=== PATIENT | male | born 1935 | race Caucasian/White ===

== ENCOUNTER 2017-06-22 11:16 | Inpatient (IN) | payer OTHER, MEDICARE ==
[~2017-06-22] VITALS: Ht 165.1 cm; Wt 44.1 kg
[~2017-06-22 11:16] MED LIST: ASPIRIN EC81 M1 PO; CEFTRIAXONE2 G2 IV; CLARITIN10 M1 PO; COZAAR50 M1 PO; DIVALPROEX SOD250 M2 PO; FLAX OIL1000 M1 PO; LEXAPRO20 M1 PO; METOPROLOL TART25 M1 PO; SLOW FE142 MG PO; ZOCOR20 M1 PO
--- NOTE | 2017-06-22 12:33 | ED DYSPNEA/ASTHMA COMPLAINT ---
History of Present Illness General Chief Complaint: Dyspnea (COPD, CHF, Other) Stated Complaint: BIBA WITH SOB Source: patient, old records Exam Limitations: no limitations Vital Signs & Intake/Output Vital Signs & Intake/Output Vital Signs Date Time Temp Pulse Resp B/P B/P Pulse O2 O2 Flow FiO2 Mean Ox Delivery Rate 06/22 1226 97 Room Air Room Air 06/22 1127 97.1 81 24 140/87 100 Nasal 2.5L Cannula Allergies Coded Allergies: No Known Allergies (12/23/16) Reconcile Medications Aspirin (Ecotrin*) 325 MG TABLET.DR 1 TAB PO DAILY HEART (Reported) Atorvastatin Calcium 40 MG TABLET 1 TAB PO 1700 CHOLESTEROL (Reported) Divalproex Sodium 250 MG TABLET.DR 1 TAB PO DAILY MENTAL HEALTH (Reported) Escitalopram Oxalate (Lexapro) 20 MG TABLET 1 TAB PO DAILY MENTAL HEALTH ( Reported) Lisinopril 5 MG TABLET 1 TAB PO DAILY HEART (Reported) Losartan Potassium (Cozaar) 50 MG TABLET 1 TAB PO DAILY BP (Reported) Metoprolol Tartrate 25 MG TABLET 0.5 TAB PO BID HEART/BP (Reported) Simvastatin (Zocor*) 20 MG TABLET 1 TAB PO QPM CHOLESTEROL (Reported) Triage Note: BIBA FROM HOME, WITH MULITPLE COMPLAINTS "SOMETIMES MY STOMACH HURTS, BUT IT IS OK RIGHT NOW, SOMETIMES I GET VERY SHORT OF BREATH, GET SO TIRED I JUST SLEEP, I DON'T TAKE MY MEDS, AND AT NIGHT I GET VERY VIVID HALLUCINATIONS OF THINGS SO REALISTIC". PT IS AWAKE, ALERT, ORIENTED UPON ARRIVAL. Triage Nurses Notes Reviewed? yes Onset: Abrupt Duration: day(s):, constant Timing: recent history Severity: moderate, severe Activities at Onset: none HPI: 81-year-old male comes into the emergency room for further evaluation of shortness of breath. Patient reports that for the past 2 weeks she's been feeling increasingly short of breath. Denies any chest pain. Denies any fever. Associated cough. He reports that he had a recent valve replacement [place] a couple months ago denies any abdominal pain. He is short of breath all the time. (Suman Gaming) Past History Travel History Traveled to [place] past 21 day No Medical History Any Pertinent Medical History? 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 No (Suman Gaming) Review of Systems Review of Systems Constitutional: Reports: no symptoms. EENTM: Reports: no symptoms. Respiratory: Reports: see HPI. Cardiovascular: Reports: see HPI. GI: Reports: no symptoms. Genitourinary: Reports: no symptoms. Musculoskeletal: Reports: no symptoms. Skin: Reports: no symptoms. Neurological/Psychological: Reports: no symptoms. Hematologic/Endocrine: Reports: no symptoms. Immunologic/Allergic: Reports: no symptoms. All Other Systems: Reviewed and Negative (Suman Gaming) Physical Exam Physical Exam General Appearance: well developed/nourished, alert, awake Head: atraumatic Eyes: Bilateral: normal appearance. Ears, Nose, Throat: normal ENT inspection, hearing grossly normal Neck: normal inspection Respiratory: no respiratory distress, decreased breath sounds Cardiovascular: regular rate/rhythm Gastrointestinal: soft Extremities: normal inspection Neurologic/Psych: awake, alert, oriented x 3, normal gait Skin: intact, normal color Core Measures ACS in differential dx? Yes CVA/TIA Diagnosis No Sepsis Present: No Sepsis Focused Exam Completed? No (Suman Gaming) Progress Differential Diagnosis: asthma, AMI, bronchitis, costochondritis, CHF, COPD, musculoskeletal pain, pericarditis, pulmonary embolism, pneumonia, pneumothorax, rib fracture, unstable angina Diagnostic Imaging: Viewed by Me: Radiology Read. Discussed w/RAD: Radiology Read. Radiology Impression: PATIENT: ISHAN BLANCA PRESENT AGE: 81 PATIENT ACCOUNT NO: [id number] : 34 LOCATION: [facility], [place] ORDERING PHYSICIAN: Suman GUTIERREZ SERVICE DATE: 06/22/17 EXAM TYPE: RAD - XRY-PORTABLE CHEST XRAY EXAMINATION: XR PORTABLE CHEST CLINICAL INFORMATION: Shortness of breath COMPARISON: 12/28/2016 TECHNIQUE: Portable frontal view of the chest was obtained. FINDINGS: There is a large right pleural effusion present and probably a small left pleural effusion. The heart is enlarged. There is upper zone redistribution and some blurring of the pulmonary vasculature suggestive of associated mild CHF. Patient is status post median sternotomy. IMPRESSION: New right pleural effusion with possible small left pleural effusion. Cardiomegaly and CHF. DICTATED BY: Jamaal Joe MD DATE/TIME DICTATED:06/22/171230 NITROCELLULOSE OPERATOR:HOLLIE DATE/TIME TRANSCRIBED:1230 CONFIDENTIAL, DO NOT COPY WITHOUT APPROPRIATE AUTHORIZATION. < Electronically signed in Other Vendor System> SIGNED BY: Jamaal Joe MD 06/22/17 1240 Initial ED EKG: rate (80), pacemaker rhythm (Suman Gaming) Plan of Care: Orders Procedure Date/time Status Heart Healthy Diet 06/22 D Active Patient Data 06/22 1542 Active Misc Message 06/22 1537 Active ED Holding Orders 06/22 1537 Active Admit to inpatient 06/22 1537 Active Vital Signs 06/22 1537 Active Code Status 06/22 1537 Active LACTIC ACID 06/22 1451 Active Telemetry/Freight Car Builder 06/22 1151 Active URINALYSIS 06/22 1151 Complete TROPONIN LEVEL 06/22 1151 Complete LACTIC ACID 06/22 1151 Complete COMPREHENSIVE METABOLIC PANEL 06/22 1151 Complete CBC WITHOUT DIFFERENTIAL 06/22 1151 Complete B-TYPE NATRIURETIC PEP (BNP) 06/22 1151 Complete EKG 06/22 1118 Active Laboratory Tests 06/22/17 1542: Urine Color YEL, Urine Clarity CLEAR, Urine pH 6.0, Ur Specific [place] 1.020, Urine Protein NEG, Urine Ketones NEG, Urine Nitrite NEG, Urine Bilirubin NEG, Urine Urobilinogen 0.2, Ur Leukocyte Esterase NEG, Ur Microscopic EXAM NOT REQUIRED, Urine Hemoglobin NEG, Urine Glucose NEG 06/22/17 1349: Anion Gap 13, Estimated GFR > 60, BUN/Creatinine Ratio 26.0 H, Glucose 88, Lactic Acid 1.2, Calcium 8.5, Total Bilirubin 1.0, AST 19, ALT 25, Alkaline Phosphatase 80, Troponin I 0.02, Fho-V-Xvgpntwncsa Pept 20436 H, Total Protein 8.2, Albumin 3.4 L, Globulin 4.8 H, Albumin/Globulin Ratio 0.7 L 06/22/17 1215: CBC w Diff NO MAN DIFF REQ, RBC 3.65 L, MCV 99.5 H, MCH 33.9 H, MCHC 34.0, RDW 20.2 H, MPV 9.9, Gran % 65.6, Lymphocytes % 21.5, Monocytes % 10.8 H, Eosinophils % 1.4, Basophils % 0.7, Absolute Granulocytes 4.2, Absolute Lymphocytes 1.4, Absolute Monocytes 0.7 H, Absolute Eosinophils 0.1, Absolute Basophils 0 Comments: 06/22/2017 3:35:50 PM patient's case discussed with Dr. Ochoa. (Kathia SORIA,Roger Valdes) Departure Departure Disposition: STILL A PATIENT Condition: Stable Clinical Impression Primary Impression: Acute CHF (congestive heart failure) Referrals: Jenny Wilson MD (PCP/Family) Departure Forms: Customer Survey General Discharge Information Admission Note Spoke With: Dar Ochoa MD Documentation of Exam: Documentation of any treatments & extenuating circumstances including Concerns Regarding Discharge (functional status, medication knowledge or non-compliance, living conditions, etc.) that warrant an admission rather than observation: Patient will require cardiac telemetry. Cardiac consultation. Serial troponins. IV diuresis. Echocardiogram. Patient may require a thoracentesis to drain fluid. INR consultation. Patient will likely require greater 72 hours of care. (Suman Gaming) PA/FORMULA TECHNICIAN Co-Sign Statement Statement: ED Attending supervision documentation- [X] I saw and evaluated the patient. I have also reviewed all the pertinent lab results and diagnostic results. I agree with the findings and the plan of care as documented in the PA's/FORMULA TECHNICIAN's documentation. Patient presents for evaluation of worsening shortness of breath. Physical examination reveals a heart murmur consistent with the patient's aortic valve surgery along with bilateral pitting pretibial edema. [] I have reviewed the ED Record and agree with the PA's/FORMULA TECHNICIAN's documentation. [] Additions or exceptions (if any) to the PAs/FORMULA TECHNICIAN's note and plan are summarized below: [] (Kathia SORIA,Roger Valdes) Critical Care Note Critical Care Note Critical Care Time: 30-74 min (35) ([place] GUTIERREZ,Suman)
--- NOTE | 2017-06-22 12:40 | RADIOLOGY REPORT ---
EXAMINATION: XR PORTABLE CHEST CLINICAL INFORMATION: Shortness of breath COMPARISON: 12/28/2016 TECHNIQUE: Portable frontal view of the chest was obtained. FINDINGS: There is a large right pleural effusion present and probably a small left pleural effusion. The heart is enlarged. There is upper zone redistribution and some blurring of the pulmonary vasculature suggestive of associated mild CHF. Patient is status post median sternotomy. IMPRESSION: New right pleural effusion with possible small left pleural effusion. Cardiomegaly and CHF.
[2017-06-22 12:42] LABS: ABSOLUTE BASOPHIL COUNT 0 /CUMM (0.0-0.2); ABSOLUTE EOSINOPHIL COUNT 0.1 /CUMM (0.0-0.7); ABSOLUTE GRANULOCYTE CT 4.2 /CUMM (1.4-6.5); ABSOLUTE LYMPH COUNT 1.4 /CUMM (1.2-3.4); ABSOLUTE MONOCYTE COUNT 0.7 /CUMM (0.10-0.60); BASOPHIL % 0.7 % (0.0-2.0); EOSINOPHIL % 1.4 % (0-5); GRANULOCYTE % 65.6 % (42.2-75.2); HEMATOCRIT 36.4 % (42-52); MEAN CORPUSCULAR HGB 33.9 PG (27.0-31.0); MEAN CORPUSCULAR VOLUME 99.5 FL (80.0-94.0); MEAN PLATELET VOLUME 9.9 FL (7.4-10.4); PLATELET COUNT 107 /CUMM (130-400); RBC DISTRIBUTION WIDTH 20.2 % (11.5-14.5); RED BLOOD CELL CT 3.65 /CUMM (4.70-6.10); WHITE BLOOD CELL COUNT 6.4 /CUMM (4.8-10.8)
[2017-06-22] MEDS ORDERED: LISINOPRIL5 M1 PO (12:45)
[2017-06-22] MEDS ORDERED: ATORVASTATIN CA40 M1 PO (12:46)
[2017-06-22] MEDS ORDERED: ASPIRIN EC325 M2 PO (12:46)
--- NOTE | 2017-06-22 15:53 | History & Physical ---
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 Patient was previously admitted to [facility] from 12/23/16-12/29/16 for sepsis thought to be secondary to urinary tract infection however blood cultures demonstrated growth of gram-positive cocci (Streptococcus angiosis). Echocardiogram demonstrated a valvular vegetation for which a PICC line was placed and patient was started on high-dose Rocephin for 6 weeks course. A small right sided intra-parenchymal cerebral hemorrhage was noted during the hospital stay that remain stable. Patient was transferred to [facility] for higher level care and possible aortic valve replacement which she subsequently underwent. Patient reports in recent weeks he has had decreased oral intake of both food and water and has been mostly noncompliant with his medications. He reports multiple vague complaints including occasional shortness of breath and stomach aches with recent diarrhea but is unable to characterize it. 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 Over the past 2 weeks his shortness breath has been progressively worsening for which he came to the [facility] ED. Presently patient is complaining of persistence of his complaints. Review of systems Otherwise he denies any headache, fever, chills, blurred/double vision, lightheadedness/dizziness, chest pain, palpitations, heartburn, cough, nausea, vomiting, constipation. Objective Vital signs -Temperature: 97.1 -Heart rate: 81 -Respiratory rate: 24 -Systolic blood pressure: 140 -O2 sat: 97-100% on room air Physical exam -Gen.: Ill-appearing elderly man in no acute distress -HEENT: NCAT, PERRLA, EOMI, anicteric sclera, right periorbital swelling without drainage, moist mucous membranes -Neck: Supple, mild JVD/HJR, trachea midline, no accessory respiratory muscle use -Cardio: Soft S1/S2 without murmurs/gallops/rubs; regular rate and rhythm, sternotomy scar -Lungs: Crackles up to mid chest on left with diminished basilar airflow and crackles up to apex on right with diminished basilar/middle lobe airflow -Abdomen: Soft, nontender, mildly distended, palpable midline nontender ventral mass, bowel sounds intact -Neuro: Awake and alert, oriented to person/place/time, speech/coordination intact, cranial nerves II through XII grossly intact -psych: Speech fluent but tangential, good eye contact/affect -Extremities: 2+ bilateral lower extremity nonpitting edema, normal pulses Labs/imaging/studies -CBC: WBC 6.4, hemoglobin 12.4, hematocrit 36.4, platelet 107 -BMP: Sodium 143, potassium 4.1, chloride 106, CO2 25, urea 26, creatinine 1.0, anion gap 13, glucose 88 -LFT: AST 19, ALT 25, ALP 80, total bilirubin 1.0 -Miscellaneous: ProBNP 71100, troponin I 0.02, lactic acid 1.2 -Urinalysis: Markable -EKG: Ventricular paced rhythm -CXR: New right pleural effusion with possible small left pleural effusion. Cardiomegaly and CHF. 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 Records demonstrate that last echocardiogram had no issues with LV function or diastolic function however given that patient had both an aortic valve replacement and mitral valve replacement sent that day it is entirely possible that patient has a new reduced LVEF. He remains hemodynamically stable with mild JVD diffuse pulmonary crackles and lower extremity swelling with pleural effusions on chest x-ray and elevated BNP suggestive of acute decompensated congestive heart failure. Patient is to be evaluated by cardiology, have an echocardiogram, and serial troponin/EKG. 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 -Mitral valve replacement -Hypertension -Hyperlipidemia -History of colon cancer status post resection -Depression -History of "aortic wall rupture status post repair" Plan -Admit to telemetry -Telemetry monitoring -Strict in's and outs, daily weights -Supplemental oxygen, goal >92%, taper as tolerated -TRC with nebs when necessary -Lasix 40 mg IV twice a day -Continue home meds: Aspirin, atorvastatin, Depakote, Lexapro, lisinopril, metoprolol -Cardiology consult for heart failure -Placed pulmonology consult in morning for pleural effusion -Obtain transthoracic echocardiogram -Serial troponin/EKG until peak or 3 negative sets -Pain control with acetaminophen -Heart healthy diet, NPO overnight for possible thoracentesis in morning -DVT prophylaxis with lovenox -Full code Allergies/Medications Allergies: Coded Allergies: No Known Allergies (12/23/16) Home Med list Aspirin (Ecotrin*) 325 MG TABLET.DR 1 TAB PO DAILY HEART (Reported) Atorvastatin Calcium 40 MG TABLET 1 TAB PO 1700 CHOLESTEROL (Reported) Divalproex Sodium 250 MG TABLET.DR 1 TAB PO DAILY MENTAL HEALTH (Reported) Escitalopram Oxalate (Lexapro) 20 MG TABLET 1 TAB PO DAILY MENTAL HEALTH ( Reported) Furosemide (Lasix) 40 MG TABLET 1 TAB PO DAILY FLUID (Reported) Lisinopril 5 MG TABLET 1 TAB PO DAILY HEART (Reported) Metoprolol Tartrate 25 MG TABLET 0.5 TAB PO BID HEART/BP (Reported) Past History Travel History Traveled to [place] past 21 day No Medical History Neurological: NONE EENT: NONE Cardiovascular: CAD (s/p stent), hypertension, hyperlipidemia Respiratory: NONE Gastrointestinal: colon cancer Hepatic: NONE Renal: NONE Musculoskeletal: NONE Psychiatric: depression Endocrine: NONE Blood Disorders: anemia Cancer(s): colon/rectal cancer 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 Exam & Diagnostic Data Last 24 Hrs of Vital Signs/I&O Vital Signs Date Time Temp Pulse Resp B/P B/P Pulse O2 O2 Flow FiO2 Mean Ox Delivery Rate 06/22 1735 97.2 79 22 134/82 94 Room Air Room Air 06/22 1226 97 Room Air Room Air 06/22 1127 97.1 81 24 140/87 100 Nasal 2.5L Cannula Intake & Output 06/22 1600 06/22 0800 06/22 0000 Intake Total Output Total Balance Patient 88.451 kg Weight Weight Reported by Patient Measurement Method Assessment/Plan As Ranked By This Provider Problem List: 1. Acute CHF (congestive heart failure) Core Measures/Misc (11/13) Acute Coronary Syndrome ACS Diagnosis: No Congestive Heart Failure Congestive Heart Failure Diagnosis Yes Last Known EF % 55 Cerebrovascular Accident CVA/TIA Diagnosis: No VTE (View Protocol) VTE Risk Factors Age>40 No Mechanical VTE Prophylaxis d/t N/A MechProphylax Ordered No VTE Pharm Prophylaxis d/t NA PharmProphylax ordered Sepsis (View protocol) Sepsis Present: No
--- NOTE | 2017-06-22 16:41 | Cons- Cardiology ---
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 Patient was previously admitted to [facility] from 12/23/16-12/29/16 for sepsis thought to be secondary to urinary tract infection however blood cultures demonstrated growth of gram-positive cocci (Streptococcus angiosis). Echocardiogram demonstrated a valvular vegetation for which a PICC line was placed and patient was started on high-dose Rocephin for 6 weeks course. A small right sided intra-parenchymal cerebral hemorrhage was noted during the hospital stay that remain stable. Patient was transferred to [facility] for higher level care and possible aortic valve replacement which she subsequently underwent. Allergies/Medications Allergies: Coded Allergies: No Known Allergies (12/23/16) Home Med List: Aspirin (Ecotrin*) 325 MG TABLET.DR 1 TAB PO DAILY HEART (Reported) Atorvastatin Calcium 40 MG TABLET 1 TAB PO 1700 CHOLESTEROL (Reported) Divalproex Sodium 250 MG TABLET.DR 1 TAB PO DAILY MENTAL HEALTH (Reported) Escitalopram Oxalate (Lexapro) 20 MG TABLET 1 TAB PO DAILY MENTAL HEALTH ( Reported) Furosemide (Lasix) 40 MG TABLET 1 TAB PO DAILY FLUID (Reported) Lisinopril 5 MG TABLET 1 TAB PO DAILY HEART (Reported) Metoprolol Tartrate 25 MG TABLET 0.5 TAB PO BID HEART/BP (Reported) Current Medications: Current Medications Sig/Xochitl Start time Last Medication Dose Route Stop Time Status Admin Furosemide 0 .STK-MED ONE 06/22 1501 DC IV Furosemide 40 MG ONCE ONE 06/22 1445 DC 06/22 IV 06/22 1446 1458 Past History Travel History Traveled to [place] past 21 day No Medical History Neurological: NONE EENT: NONE Cardiovascular: CAD (s/p stent), hypertension, hyperlipidemia Respiratory: NONE Gastrointestinal: colon cancer Hepatic: NONE Renal: NONE Musculoskeletal: NONE Psychiatric: depression Endocrine: NONE Blood Disorders: anemia Cancer(s): colon/rectal cancer 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: 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 Surgical History Surgical History: colon resection, s/p aortic valve replacement Psychosocial History Services at Home: None ETOH Use: denies use Illicit Drug Use: denies illicit drug use Exam & Diagnostic Data Vital Signs and I&O Vital Signs Date Time Temp Pulse Resp B/P B/P Pulse O2 O2 Flow FiO2 Mean Ox Delivery Rate 06/22 1226 97 Room Air Room Air 06/22 1127 97.1 81 24 140/87 100 Nasal 2.5L Cannula Intake & Output 06/22 0806/22 0000 06/21 1600 06/21 0806/21 0000 Intake Total Output Total Balance Patient 195 lb Weight Weight Reported by Patient Measurement Method Physical Exam: General Appearance: well developed/nourished, alert, awake, oriented Head: normal Neck: supple, JVP elevated at 2 cm at 45, carotid upstrokes normal bilaterally, no masses or thyromegaly Respiratory: chest non-tender, scattered rhonchi, decreased breath sounds right base Cardiovascular: regular rate/rhythm, normal S1, S2, 1/6 systolic murmur Abdomen: normal bowel sounds, soft, non-tender Extremities: 2-3+ bilateral pitting edema Labs/Yoan Results: Laboratory Tests 06/22 06/22 1542 1349 Chemistry Sodium (137 - 145 mmol/L) 143 Potassium (3.5 - 5.1 mmol/L) 4.1 Chloride (98 - 107 mmol/L) 106 Carbon Dioxide (22 - 30 mmol/L) 25 Anion Gap (5 - 16) 13 BUN (9 - 20 mg/dL) 26 H Creatinine (0.7 - 1.2 mg/dL) 1.0 Estimated GFR (>60 ml/min) > 60 BUN/Creatinine Ratio (7 - 25 %) 26.0 H Glucose (65 - 99 mg/dL) 88 Lactic Acid (0.7 - 2.1 mmol/L) 1.2 Calcium (8.4 - 10.2 mg/dL) 8.5 Total Bilirubin (0.2 - 1.3 mg/dL) 1.0 AST (17 - 59 U/L) 19 ALT (21 - 72 U/L) 25 Alkaline Phosphatase (< 127 U/L) 80 Troponin I (<0.11 ng/ml) 0.02 [id number] Pept (<125 pg/mL) 40154 H Total Protein (6.3 - 8.2 g/dL) 8.2 Albumin (3.5 - 5.0 g/dL) 3.4 L Globulin (1.9 - 4.2 gm/dL) 4.8 H Albumin/Globulin Ratio (1.1 - 2.2 %) 0.7 L Urines Urine Color (YEL,AMB,STR) YEL Urine Clarity (CLEAR) CLEAR Urine pH (5.0 - 8.0) 6.0 Ur Specific [place] (1.001 - 1.035) 1.020 Urine Protein (NEG,<30 MG/DL) NEG Urine Ketones (NEG) NEG Urine Nitrite (NEG) NEG Urine Bilirubin (NEG) NEG Urine Urobilinogen (0.1 - 1.0 EU/dl) 0.2 Ur Leukocyte Esterase (NEG) NEG Ur Microscopic EXAM NOT REQUIRED Urine Hemoglobin (NEG) NEG Urine Glucose (N MG/DL) NEG 06/22 1215 Hematology CBC w Diff NO MAN DIFF REQ WBC (4.8 - 10.8 /CUMM) 6.4 RBC (4.70 - 6.10 /CUMM) 3.65 L Hgb (14.0 - 18.0 G/DL) 12.4 L Hct (42 - 52 %) 36.4 L MCV (80.0 - 94.0 FL) 99.5 H MCH (27.0 - 31.0 PG) 33.9 H MCHC (33.0 - 37.0 G/DL) 34.0 RDW (11.5 - 14.5 %) 20.2 H Plt Count (130 - 400 /CUMM) 107 L MPV (7.4 - 10.4 FL) 9.9 Gran % (42.2 - 75.2 %) 65.6 Lymphocytes % (20.5 - 51.1 %) 21.5 Monocytes % (1.7 - 9.3 %) 10.8 H Eosinophils % (0 - 5 %) 1.4 Basophils % (0.0 - 2.0 %) 0.7 Absolute Granulocytes (1.4 - 6.5 /CUMM) 4.2 Absolute Lymphocytes (1.2 - 3.4 /CUMM) 1.4 Absolute Monocytes (0.10 - 0.60 /CUMM) 0.7 H Absolute Eosinophils (0.0 - 0.7 /CUMM) 0.1 Absolute Basophils (0.0 - 0.2 /CUMM) 0 Diagnostic Data EKG Results Ventricular paced rhythm with probable underlying atrial fibrillation Assessment/Plan Assessment/Plan assessment: 1. Congestive heart failure 2. Bilateral pleural effusions greater on the right side 3. History of coronary artery disease, status post stenting 4. History of bioprosthetic aortic valve endocarditis, status post reoperation 5. Mitral valve replacement 6. Permanent pacemaker 7. Hypertension 8. Hyperlipidemia 9. History of colon cancer 10. 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 Hallucinations of unclear etiology recommendations: -Admitted to telemetry monitored floor -IV Lasix diuresis -Echocardiogram pending -Obtain copies of all yellow records for further review -Further plans after the above Consult Acknowledgment - Thank you for your consult request.
[2017-06-22] MEDS ORDERED: LASIX40 M1 PO (17:47)
--- NOTE | 2017-06-22 18:01 | PN- Att Addend ---
Attending Addendum Attending Brief Note Patient is an 82-year-old gentleman with history of chronic anemia, colon cancer status post colectomy, BPH, hypertension, depression, coronary artery disease status post aortic valve replacement in the past. Initially presented to [facility] in December 2016 with fever and chills. At that time he was found to have strep bacteremia. RAMYA revealed vegetation on the prosthetic aortic valve and mobile echodensity on the atrial aspect of the anterior mitral leaflet. MRI of the brain demonstrated subarachnoid hemorrhage subacute left cerebellar infarct. He was transferred to [facility] for further management. At [facility] was taken to the OR where he underwent drainage of an aortic root abscess, aortic valve replacement, mitral valve replacement, placement of epicardial atrial and ventricular leads and placement of a permanent pacemaker in his abdomen. He completed 6 weeks of antibiotic therapy. He presented again to [facility] last month with complaints of abdominal pain. He has a CHARLIE score of [address] PET stress test which was negative. She was incidentally noted to have a large right pleural effusion and suspicious lesion in the liver. Thoracocentesis was done and fluid analysis was exudative in nature. Culture reports were negative. Repeat CT scan after the procedure revealed mediastinal lymphadenopathy and small loculated right pleural effusion. No biopsies were done. He was discharged home in stable condition. During the hospitalization his EF was noted to have dropped to 45%. He presents today with complaints of progressively worsening shortness of breath. Imaging in the ER reveals bilateral pleural effusion significantly more on the right. His BNP was markedly elevated and he was started on IV Lasix and referred to the medical service for further management. General appearance: Well-developed. Patient with mildly labored breathing. HEENT: Anicteric, pupils equal and reactive. Neck: Supple with no jugular venous distention. Heart: S1-S2 regular. Lungs: Markedly decreased breath sounds in the right lung field. Dullness to percussion in the right lung field. Abdomen: Nondistended with normal bowel sounds. Soft, nontender with no palpable masses. Extremities: 1-2+ pitting pedal edema bilaterally. Symmetric. No calf tenderness. Skin: Intact Laboratory data reviewed. EKG shows paced rhythm. Problems: 1. Acute on chronic systolic heart failure. 2. recurrent right pleural effusion. 3. Coronary artery disease. 4. Hypertension Plan: -Admit to inpatient medical service. -Placed on continuous telemetry monitoring. Trend cardiac enzymes. Repeat echocardiogram. Obtain cardiology consultation. -Diuresis with Lasix 40 mg IV twice daily. -Patient will likely require repeat thoracocentesis. He may even require Pleurx catheter placement given the rapid recurrence of the effusion and its exudative nature. Recommend consultation with the pulmonology and cardiothoracic surgery service. -If cytology results are inconclusive he may require biopsy of the mediastinal lymphadenopathy noted at [facility]. -Follow-up cytology results from [facility]. -Check INR. DVT prophylaxis with heparin subcu. -Keep n.p.o. past midnight and hold anticoagulation in a.m. in anticipation of thoracocentesis following evaluation by the pulmonology service.
[2017-06-22 18:08] VITALS: BP 148/82
[2017-06-22 21:50] LABS: PT 14.8 SEC (9.4-12.5)
[2017-06-22 23:01] VITALS: BP 128/72
[2017-06-23 06:53] VITALS: BP 128/78
--- NOTE | 2017-06-23 07:26 | PN- Housestaff ---
Mary SORIA,Zaida 06/23/17 0726: Subjective Follow-up For: -Acute decompensatedcongestive heart failure -Pleural effusions, right greater than left -CAD status post cardiac stent Complaints: SOB Tele-Events Since Last Visit: No overnight events Subjective: Patient was seen and examined at bedside, he continues to complain of shortness of breath, also complains of visual and auditory hallucinations which are chronic conditions for him. No overnight events Review of Systems Constitutional: Reports: see HPI. Objective Last 24 Hrs of Vital Signs/I&O Vital Signs Date Time Temp Pulse Resp B/P B/P Pulse O2 O2 Flow FiO2 Mean Ox Delivery Rate 06/23 1446 98.8 77 18 116/74 95 Room Air 06/23 1106 82 128/76 06/23 1105 82 128/76 06/23 0653 97.6 80 18 128/78 92 Room Air 06/22 2301 97.7 80 18 128/72 94 Room Air 06/22 2110 Room Air 06/22 2057 80 128/72 06/22 1915 Room Air 06/22 1832 94 Room Air 06/22 1808 97.8 80 18 148/82 94 Room Air 06/22 1735 97.2 79 22 134/82 94 Room Air Room Air Intake & Output 06/23 1600 06/23 0800 06/23 0000 Intake Total 60 Output Total 900 1325 Balance 60 -900 -1325 Intake, Oral 60 Output, Urine 900 1325 Patient 209 lb Weight Weight Bed scale Measurement Method Physical Exam General Appearance: Alert, Oriented X3, Cooperative, No Acute Distress HEENT: Atraumatic, PERRLA, EOMI, Mucous Membr. 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 -Mitral valve replacement -Hypertension -Hyperlipidemia -History of colon cancer status post resection -Depression -History of "aortic wall rupture status post repair" Plan -continue Telemetry monitoring -Strict in's and outs, daily weights -Supplemental oxygen, goal >92%, taper as tolerated -TRC with nebs when necessary -Lasix 40 mg IV twice a day -Continue home meds: Aspirin, atorvastatin, Depakote, Lexapro, lisinopril, metoprolol -Cardiology recommendations appreciated -Cardiothoracic consult appreciated -Obtain transthoracic echocardiogram -Serial troponin EKG ruled out ACS Follow-up on the results of thoracocentesis -Pain control with acetaminophen -DVT prophylaxis with lovenox -Full code Problem List: 1. Acute CHF (congestive heart failure) 2. 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 Patient feels well today. His breathing is unchanged. He is aware of visual hallucinations occuring last night, which he has had before. EKG shows ventricularly paced rhythm. BNP is elevated. 1. Bilateral pleural effusion 2. Dyspnea on exertion Plan - Continue on telemetry - Right sided diagnostic and therapeutic thoracentesis - Cardiology and cardiothoracic surgery consults - Continue home medications - Continue IV Lasix - I/O, daily weights - DVT PPx
--- NOTE | 2017-06-23 07:47 | PN- Cardiology ---
Subjective Subjective: Clinically improving with slightly less edema Objective Vital Signs and I&Os Vital Signs Date Time Temp Pulse Resp B/P B/P Pulse O2 O2 Flow FiO2 Mean Ox Delivery Rate 06/23 0653 97.6 80 18 128/78 92 Room Air 06/22 2301 97.7 80 18 128/72 94 Room Air 06/22 2110 Room Air 06/22 2057 80 128/72 06/22 1915 Room Air 06/22 1832 94 Room Air 06/22 1808 97.8 80 18 148/82 94 Room Air 06/22 1735 97.2 79 22 134/82 94 Room Air Room Air 06/22 1226 97 Room Air Room Air 06/22 1127 97.1 81 24 140/87 100 Nasal 2.5L Cannula Intake & Output 06/23 0800 06/23 0000 06/22 1600 06/22 0800 06/22 0000 06/21 1600 Intake Total Output Total 1325 Balance -1325 Output, Urine 1325 Patient 209 lb 195 lb Weight Weight Bed scale Reported by Patient Measurement Method Current Medications: Current Medications Sig/Xochitl Start time Last Medication Dose Route Stop Time Status Admin Acetaminophen 650 MG Q6P PRN 06/22 1745 AC PO Aspirin Buffered 325 MG DAILY 06/23 0900 AC PO Atorvastatin Calcium 40 MG 1700 06/23 1700 AC PO Divalproex Sodium 250 MG DAILY 06/23 0900 AC PO Enoxaparin Sodium 40 MG DAILY 06/23 0900 AC SC Escitalopram Oxalate 20 MG DAILY 06/23 0900 AC PO Furosemide 40 MG BID 06/22 2100 AC 06/22 IV 2055 Furosemide 0 .STK-MED ONE 06/22 1501 DC IV Furosemide 40 MG ONCE ONE 06/22 1445 DC 06/22 IV 06/22 1446 1458 Lisinopril 5 MG DAILY 06/23 0900 AC PO Metoprolol Tartrate 12.5 MG BID 06/22 2100 AC 06/22 PO 2056 Results Last 48 Hrs of Labs/Mics: Laboratory Tests 06/23/17 0725: Sodium Pending, Potassium Pending, Chloride Pending, Carbon Dioxide Pending, Anion Gap Pending, BUN Pending, Creatinine Pending, BUN/Creatinine Ratio Pending , Magnesium Pending, CBC w Diff Pending, WBC Pending, RBC Pending, Hgb Pending, Hct Pending, MCV Pending, MCH Pending, MCHC Pending, RDW Pending, Plt Count Pending, MPV Pending 06/23/17 0230: Troponin I 0.02 06/22/172039: Troponin I 0.03 06/22/172039: Lactic Acid 1.2, PT 14.8 H, INR 1.35 H 06/22/17 1542: Urine Color YEL, Urine Clarity CLEAR, Urine pH 6.0, Ur Specific [place] 1.020, Urine Protein NEG, Urine Ketones NEG, Urine Nitrite NEG, Urine Bilirubin NEG, Urine Urobilinogen 0.2, Ur Leukocyte Esterase NEG, Ur Microscopic EXAM NOT REQUIRED, Urine Hemoglobin NEG, Urine Glucose NEG 06/22/17 1349: Anion Gap 13, Estimated GFR > 60, BUN/Creatinine Ratio 26.0 H, Glucose 88, Lactic Acid 1.2, Calcium 8.5, Total Bilirubin 1.0, AST 19, ALT 25, Alkaline Phosphatase 80, Troponin I 0.02, Hkr-D-Wgcmaqnjeyj Pept 47802 H, Total Protein 8.2, Albumin 3.4 L, Globulin 4.8 H, Albumin/Globulin Ratio 0.7 L 06/22/17 1215: CBC w Diff NO MAN DIFF REQ, RBC 3.65 L, MCV 99.5 H, MCH 33.9 H, MCHC 34.0, RDW 20.2 H, MPV 9.9, Gran % 65.6, Lymphocytes % 21.5, Monocytes % 10.8 H, Eosinophils % 1.4, Basophils % 0.7, Absolute Granulocytes 4.2, Absolute Lymphocytes 1.4, Absolute Monocytes 0.7 H, Absolute Eosinophils 0.1, Absolute Basophils 0 Assessment/Plan Assessment/Plan assessment: 1. Congestive heart failure 2. Bilateral pleural effusions greater on the right side 3. History of coronary artery disease, status post stenting 4. History of bioprosthetic aortic valve endocarditis, status post reoperation 5. Mitral valve replacement 6. Permanent pacemaker 7. Hypertension 8. Hyperlipidemia 9. History of colon cancer 10. 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 Hallucinations of unclear etiology recommendations: -Admitted to telemetry monitored floor -IV Lasix diuresis -Echocardiogram pending -Obtain copies of all [facility] records for further review -Further plans after the above Continue telemetry? Yes
[2017-06-23 08:12] LABS: ABSOLUTE BASOPHIL COUNT 0 /CUMM (0.0-0.2); ABSOLUTE EOSINOPHIL COUNT 0.1 /CUMM (0.0-0.7); ABSOLUTE GRANULOCYTE CT 4.1 /CUMM (1.4-6.5); ABSOLUTE LYMPH COUNT 1.6 /CUMM (1.2-3.4); ABSOLUTE MONOCYTE COUNT 0.9 /CUMM (0.10-0.60); BASOPHIL % 0.5 % (0.0-2.0); EOSINOPHIL % 2.1 % (0-5); GRANULOCYTE % 59.8 % (42.2-75.2); HEMATOCRIT 34.3 % (42-52); MEAN CORPUSCULAR HGB 33.5 PG (27.0-31.0); MEAN CORPUSCULAR HGB CONC 33.3 G/DL (33.0-37.0); MEAN CORPUSCULAR VOLUME 100.8 FL (80.0-94.0); MEAN PLATELET VOLUME 9.4 FL (7.4-10.4); PLATELET COUNT 100 /CUMM (130-400); RBC DISTRIBUTION WIDTH 19.7 % (11.5-14.5); RED BLOOD CELL CT 3.41 /CUMM (4.70-6.10); WHITE BLOOD CELL COUNT 6.8 /CUMM (4.8-10.8)
--- NOTE | 2017-06-23 11:56 | RADIOLOGY REPORT ---
EXAMINATION: XR PORTABLE CHEST CLINICAL INFORMATION: Shortness of breath and right pleural effusion. COMPARISON: 06/22/2017 TECHNIQUE: Portable frontal view of the chest was obtained. FINDINGS: Cardiomegaly, replaced mitral valve and intact sternotomy wires. Mild prominence of central pulmonary vessels without peripheral interstitial edema. Moderate right pleural effusion produces compressive atelectasis in the base. No new findings in the chest compared to the prior exam. IMPRESSION: 1. Cardiomegaly and pulmonary vascular congestion. 2. Moderate right pleural effusion is unchanged in size compared to 06/22/2017.
[2017-06-23 14:46] VITALS: BP 116/74
--- NOTE | 2017-06-23 15:52 | RADIOLOGY REPORT ---
EXAMINATION:\H\ \N\XR CHEST CLINICAL INFORMATION: Status post right thoracentesis. COMPARISON: Portable chest 06/23/2017, 10:41 AM TECHNIQUE: Frontal AP view of the chest was obtained. 2:53 PM FINDINGS: There is no pneumothorax. There is still density blunting the right costophrenic angle from a pleural effusion. The volume of effusion has diminished since exam earlier today consistent with history of thoracentesis. There is haziness and blunting of left costophrenic angle consistent with a small left pleural effusion. Status post median sternotomy for CABG. Heart size is enlarged. IMPRESSION: 1. No pneumothorax status post thoracentesis. Persistent density at the right lung base from residual right pleural effusion. 2. Small left pleural effusion.
--- NOTE | 2017-06-23 15:53 | PN- Thoracic Surgery ---
Surgical Brief Attending Note Brief Attending Note: Spoke with housestaff and attending Dr. Howell. Recurrence 1 month after previous thoracentesis of a right pleural effusion. Cytology was negative previously. Spoke with interventional radiology. Drainage this time was fairly complete. He can be reevaluated as an outpatient and if there is a reaccumulation of a significant symptomatic effusion then we can consider a Pleurx catheter. No indication for any further treatment at this time.
--- NOTE | 2017-06-23 16:38 | ULTRASOUND REPORT ---
PROCEDURE: Thoracentesis CLINICAL INFORMATION: Pleural Effusion COMPARISON: Same day chest x-ray TECHNIQUE: Indirect ultrasound guided thoracentesis using a 5 [place] Yueh catheter. FINDINGS: Informed consent was obtained from the patient prior to the procedure. During this process, the procedure alternatives were explained, along with the intended outcome and benefits. The risks of the procedure, as well as the risk of not doing the procedure, was discussed. The patient was given the opportunity to ask questions regarding the procedure and appeared competent to make medical decisions. A signed consent form which documents this discussion was placed in the medical record. A timeout procedure was performed. Ultrasound evaluation of the chest for pleural fluid was performed. A moderate pleural effusion is noted on the right side. Using standard interventional and sterile techniques, lidocaine was used to anesthetize the region. A 5 [place] Yueh catheter was introduced into the right pleural fluid using standard safety needle technique. Approximately 1100 mL of light yellow fluid was removed into the Vacutainer bottles. The catheter was then removed. Good hemostasis was achieved. The patient tolerated the procedure well. A sterile dressing was placed. The patient was discharged from the department in stable condition. Patient scheduled for post procedure followup x-ray. COMPLICATIONS: None. IMPRESSION: Successful ultrasound-guided thoracentesis yielding 1100 mL's of fluid.
[2017-06-23 23:52] VITALS: BP 94/58
[2017-06-24 06:53] VITALS: BP 98/164
[2017-06-24 08:29] LABS: ABSOLUTE BASOPHIL COUNT 0 /CUMM (0.0-0.2); ABSOLUTE EOSINOPHIL COUNT 0.2 /CUMM (0.0-0.7); ABSOLUTE GRANULOCYTE CT 3.6 /CUMM (1.4-6.5); ABSOLUTE LYMPH COUNT 1.3 /CUMM (1.2-3.4); ABSOLUTE MONOCYTE COUNT 0.8 /CUMM (0.10-0.60); BASOPHIL % 0.7 % (0.0-2.0); EOSINOPHIL % 2.7 % (0-5); GRANULOCYTE % 60.3 % (42.2-75.2); HEMATOCRIT 32.8 % (42-52); MEAN CORPUSCULAR HGB 33.2 PG (27.0-31.0); MEAN CORPUSCULAR HGB CONC 33.2 G/DL (33.0-37.0); MEAN PLATELET VOLUME 9.5 FL (7.4-10.4); RBC DISTRIBUTION WIDTH 20.1 % (11.5-14.5); RED BLOOD CELL CT 3.28 /CUMM (4.70-6.10)
--- NOTE | 2017-06-24 08:47 | PN- Housestaff ---
Miah SORIA,Elham 06/24/17 0847: Subjective Follow-up For: -Acute decompensatedcongestive heart failure -Pleural effusions, right greater than left -CAD status post cardiac stent Tele-Events Since Last Visit: s packing 71-80 pvcs Subjective: patient had thoracentesis yesterday and has no shortness of breath or chest pain today. no overnight events. Review of Systems Constitutional: Reports: no symptoms. Objective Last 24 Hrs of Vital Signs/I&O Vital Signs Date Time Temp Pulse Resp B/P B/P Pulse O2 O2 Flow FiO2 Mean Ox Delivery Rate 06/24 2300 98.3 80 20 108/78 92 06/24 2013 80 110/80 06/24 1442 98.2 80 20 92/60 95 Room Air 06/24 0927 63 06/24 0834 7 110/64 06/24 0834 77 110/64 06/24 0653 97.5 83 20 98/164 95 Room Air Intake & Output 06/25 0800 06/25 0000 06/24 1600 Intake Total 134 410 Output Total 950 800 Balance -816 -390 Intake, IV 14 10 Intake, Oral 120 400 Output, Urine 950 800 Physical Exam General Appearance: Alert, Cooperative, No Acute Distress Skin: No Rashes, No Breakdown, No Significant Lesion Skin Temp/Moisture Exam: Warm/Dry Sepsis Skin Exam (color): Normal for Ethnicity HEENT: Atraumatic, EOMI, Mucous Membr. moist/pink Cardiovascular: Regular Rate, Normal S1, Normal S2, No Murmurs Lungs: Clear to Auscultation, Normal Air Movement Abdomen: Normal Bowel Sounds, Soft, No Tenderness Current Medications: Current Medications Sig/Xochitl Start time Last Medication Dose Route Stop Time Status Admin Acetaminophen 650 MG .STK-MED ONE 06/24 1120 DC PO 06/24 1121 Acetaminophen 650 MG Q6P PRN 06/22 1745 AC PO Aspirin Buffered 325 MG DAILY 06/23 0900 AC 06/24 PO 0834 Atorvastatin Calcium 40 MG 1700 06/23 1700 AC 06/24 PO 1527 Divalproex Sodium 250 MG DAILY 06/23 0900 AC 06/24 PO 0834 Enoxaparin Sodium 40 MG DAILY 06/23 0900 AC 06/24 SC 0833 Escitalopram Oxalate 20 MG DAILY 06/23 0900 AC 06/24 PO 0834 Furosemide 40 MG BID 06/22 2100 AC 06/24 IV 2013 Lisinopril 5 MG DAILY 06/23 0900 DC 06/24 PO 0834 Metoprolol Tartrate 12.5 MG BID 06/22 2100 AC 06/24 PO 2012 Potassium Chloride 40 MEQ ONCE ONE 06/24 1200 DC 06/24 PO 06/24 1201 1527 Last 24 Hrs of Lab/Yoan Results Last 24 Hrs of Labs/Mics: Laboratory Tests 06/24/17 0720: Anion Gap 10, Estimated GFR 49 L, BUN/Creatinine Ratio 25.7 H, CBC w Diff NO MAN DIFF REQ, RBC 3.28 L, MCV 100.0 H, MCH 33.2 H, MCHC 33.2, RDW 20.1 H, MPV 9.5, Gran % 60.3, Lymphocytes % 22.4, Monocytes % 13.9 H, Eosinophils % 2.7 , Basophils % 0.7, Absolute Granulocytes 3.6, Absolute Lymphocytes 1.3, Absolute Monocytes 0.8 H, Absolute Eosinophils 0.2, Absolute Basophils 0 Assessment/Plan Assessment: 81-year-old man with multiple medical problems and significant cardiovascular history with recent extended hospitalization requiring long-term antibiotics and 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 one month ago patient had right pleural effusion and thoracentesis, now recurrence. patient had thoracentesis yesterday to good effect. denies any shortness of breath. 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 patient -4500 cc since admission. -Continue home meds: Aspirin, atorvastatin, Depakote, Lexapro, metoprolol -hold lisinopril for wayne -Cardiology recommendations appreciated -request for [facility] records has been sent- need last echo or assessment of LV function -Cardiothoracic consult appreciated -follow up transthoracic echocardiogram -Serial troponin EKG ruled out ACS -Follow-up on the results of thoracocentesis: transudative most likely due to her CHF follow up culture and sensiivity from thora cxr from today largely showed small right pleural effusion with right lower lobe atelectasis that is largely unchanged. patient had elevated cr that miky to 1.4 from 1.2 today. -Pain control with acetaminophen -DVT prophylaxis with lovenox -Full code Problem List: 1. 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 Patient feels well today. His breathing is unchanged. He is aware of visual hallucinations occuring last night, which he has had before. EKG shows ventricularly paced rhythm. BNP is elevated. 1. Bilateral pleural effusion 2. Dyspnea on exertion 3. Acute kidney injury Plan - Continue on telemetry - Right sided diagnostic and therapeutic thoracentesis done - Cardiology and cardiothoracic surgery consults - Continue home medications - Continue IV Lasix for now - Repeat BMP in AM - Hold Lisinopril for concern of WAYNE - I/O, daily weights - DVT PPx
[2017-06-24 09:27] LABS: PLATELET COUNT 99 /CUMM (130-400)
--- NOTE | 2017-06-24 14:23 | PN- Cardiology ---
Subjective Subjective: Patient sitting at the bedside. He claims to be feeling much better. He continues to diuresis. Respiratory status stable post thoracentesis. The patient denies any further hallucinations Objective Vital Signs and I&Os Vital Signs Date Time Temp Pulse Resp B/P B/P Pulse O2 O2 Flow FiO2 Mean Ox Delivery Rate 06/24 0927 63 06/24 0834 7 110/64 06/24 0834 77 110/64 06/24 0653 97.5 83 20 98/164 95 Room Air 06/23 2352 98.7 80 18 94/58 94 Room Air 06/23 2058 80 98/64 06/23 1600 Room Air 06/23 1446 98.8 77 18 116/74 95 Room Air Intake & Output 06/24 1600 06/24 0800 06/24 0000 06/23 1600 06/23 0000 Intake Total 200 400 60 Output Total 023 168 9073 900 1325 Balance -350 -350 -1590 -900 -1325 Intake, Oral 200 400 60 Number 0 Bowel Movements Output, Urine 007 199 7911 900 1325 Patient 207 lb 209 lb Weight Weight Bed scale Bed scale Measurement Method Physical Exam: General Appearance: well developed/nourished, alert, awake, oriented Head: normal Neck: supple, JVP elevated at 2 cm at 45, carotid upstrokes normal bilaterally, no masses or thyromegaly Respiratory: chest non-tender, scattered rhonchi, decreased breath sounds right base Cardiovascular: regular rate/rhythm, normal S1, S2, 1/6 systolic murmur Abdomen: normal bowel sounds, soft, non-tender Extremities: 2+ bilateral pitting edema Current Medications: Current Medications Sig/Xochitl Start time Last Medication Dose Route Stop Time Status Admin Acetaminophen 650 MG Q6P PRN 06/22 1745 AC PO Aspirin Buffered 325 MG DAILY 06/23 09 AC 06/24 PO 0834 Atorvastatin Calcium 40 MG 1700 06/23 1700 AC 06/23 PO 1928 Divalproex Sodium 250 MG DAILY 06/23 09 AC 06/24 PO 0834 Enoxaparin Sodium 40 MG DAILY 06/23 0900 AC 06/24 SC 0833 Escitalopram Oxalate 20 MG DAILY 06/23 0900 AC 06/24 PO 0834 Furosemide 40 MG BID 06/22 2100 AC 06/24 IV 0834 Lisinopril 5 MG DAILY 06/23 0900 DC 06/24 PO 0834 Metoprolol Tartrate 12.5 MG BID 06/22 2100 AC 06/24 PO 0834 Potassium Chloride 40 MEQ ONCE ONE 06/24 1200 DC PO 06/24 1201 Results Last 48 Hrs of Labs/Mics: Laboratory Tests 06/24/17 0720: Anion Gap 10, Estimated GFR 49 L, BUN/Creatinine Ratio 25.7 H, CBC w Diff NO MAN DIFF REQ, RBC 3.28 L, MCV 100.0 H, MCH 33.2 H, MCHC 33.2, RDW 20.1 H, MPV 9.5, Gran % 60.3, Lymphocytes % 22.4, Monocytes % 13.9 H, Eosinophils % 2.7 , Basophils % 0.7, Absolute Granulocytes 3.6, Absolute Lymphocytes 1.3, Absolute Monocytes 0.8 H, Absolute Eosinophils 0.2, Absolute Basophils 0 06/23/17 1440: Pleural pH 7.48 06/23/17 1440: Fluid WBC 295 H, Fld Total RBCs Counted 281 H 06/23/17 1440: Lymphocytes 75, % Normal PMNs 9, Misc Hematology Test , Phlebotomy Draw Site RT THORACENTESIS, Fluid Total Protein 3.0, Fluid Albumin 1.2, Fluid LDH 224 06/23/17 0725: Anion Gap 9, Estimated GFR 58 L, BUN/Creatinine Ratio 24.2, Magnesium 1.8, CBC w Diff NO MAN DIFF REQ, RBC 3.41 L, MCV 100.8 H, MCH 33.5 H, MCHC 33.3, RDW 19.7 H, MPV 9.4, Gran % 59.8, Lymphocytes % 24.1, Monocytes % 13.5 H, Eosinophils % 2.1, Basophils % 0.5, Absolute Granulocytes 4.1, Absolute Lymphocytes 1.6, Absolute Monocytes 0.9 H, Absolute Eosinophils 0.1, Absolute Basophils 0 06/23/17 0230: Troponin I 0.02 06/22/172039: Troponin I 0.03 06/22/172039: Lactic Acid 1.2, PT 14.8 H, INR 1.35 H 06/22/17 1542: Urine Color YEL, Urine Clarity CLEAR, Urine pH 6.0, Ur Specific [place] 1.020, Urine Protein NEG, Urine Ketones NEG, Urine Nitrite NEG, Urine Bilirubin NEG, Urine Urobilinogen 0.2, Ur Leukocyte Esterase NEG, Ur Microscopic EXAM NOT REQUIRED, Urine Hemoglobin NEG, Urine Glucose NEG Assessment/Plan Assessment/Plan Assessment: 1. Congestive heart failure 2. Bilateral pleural effusions greater on the right side-stable post thoracentesis 3. History of coronary artery disease, status post stenting 4. 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 Mitral valve replacement 6. Permanent pacemaker 7. Hypertension 8. Hyperlipidemia 9. History of colon cancer 10. 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 Hallucinations of unclear etiology recommendations: -Admitted to telemetry monitored floor -Continue IV Lasix diuresis; the patient is approximately 4500 cc negative since admission -Echocardiogram reviewed-aortic and mitral bioprosthetic valve function appear normal. Left ventricular chamber size is normal with global hypokinesia and flattening of the interventricular septum with an ejection fraction of approximately 25-30%. -Obtain copies of all [facility] records for further review, please try to obtain a copy of last echocardiogram or last assessment of left ventricular function -Further plans after the above -Further medication adjustments to be decided upon tomorrow. Continue telemetry? Yes
[2017-06-24 14:42] VITALS: BP 92/60
--- NOTE | 2017-06-24 15:16 | RADIOLOGY REPORT ---
EXAMINATION: XR CHEST CLINICAL INFORMATION: Follow-up after thoracentesis. COMPARISON: Chest radiograph 06/23/2017. TECHNIQUE: 2 views of the chest were obtained. FINDINGS: Small right pleural effusion with right lower lobe atelectasis. The effusion appears similar to prior radiographs. Small left pleural effusion with basilar atelectasis remains unchanged. Cardiomediastinal silhouette is enlarged. There is a questionable accessory azygos lobe. Postoperative changes of median sternotomy. IMPRESSION: Small right pleural effusion with right lower lobe atelectasis. No pneumothorax. The right pleural effusion appears similar to prior radiographs. Stable small left pleural effusion with left basilar atelectasis.
[2017-06-24 23:00] VITALS: BP 108/78
[2017-06-25 06:27] VITALS: BP 106/54
[2017-06-25 07:51] LABS: ABSOLUTE BASOPHIL COUNT 0 /CUMM (0.0-0.2); ABSOLUTE EOSINOPHIL COUNT 0.2 /CUMM (0.0-0.7); ABSOLUTE GRANULOCYTE CT 3.3 /CUMM (1.4-6.5); ABSOLUTE LYMPH COUNT 1.5 /CUMM (1.2-3.4); ABSOLUTE MONOCYTE COUNT 0.9 /CUMM (0.10-0.60); BASOPHIL % 0.7 % (0.0-2.0); EOSINOPHIL % 2.9 % (0-5); GRANULOCYTE % 55.9 % (42.2-75.2); MEAN CORPUSCULAR HGB 33.3 PG (27.0-31.0); MEAN CORPUSCULAR HGB CONC 33.1 G/DL (33.0-37.0); MEAN CORPUSCULAR VOLUME 100.6 FL (80.0-94.0); RBC DISTRIBUTION WIDTH 19.9 % (11.5-14.5); RED BLOOD CELL CT 3.18 /CUMM (4.70-6.10); WHITE BLOOD CELL COUNT 5.9 /CUMM (4.8-10.8)
--- NOTE | 2017-06-25 08:39 | PN- Housestaff ---
Vee SORIA,Benedicto 06/25/17 0839: Subjective Follow-up For: dyspnea CHF pleural effusions Tele-Events Since Last Visit: paced HR 80s no events Subjective: no complaints this morning, diuresing well, lower extremity edema improved Review of Systems Constitutional: Reports: see HPI. Objective Last 24 Hrs of Vital Signs/I&O Vital Signs Date Time Temp Pulse Resp B/P B/P Pulse O2 O2 Flow FiO2 Mean Ox Delivery Rate 06/25 1418 98.2 80 20 92/60 96 Room Air 06/25 0814 74 106/54 06/25 0627 97.3 70 18 106/54 93 Room Air 06/24 2300 98.3 80 20 108/78 92 06/24 2013 80 110/80 Intake & Output 06/25 1600 06/25 0800 06/25 0000 Intake Total 410 120 134 Output Total 850 300 950 Balance -440 -180 -816 Intake, IV 10 14 Intake, Oral 400 120 120 Output, Urine 850 300 950 Patient 92.079 kg Weight Weight Bed scale Measurement Method Physical Exam General Appearance: Alert, Oriented X3, Cooperative, No Acute Distress Cardiovascular: Regular Rate, Normal S1, Normal S2, No Murmurs Lungs: diminished bibasilar Abdomen: Normal Bowel Sounds, Soft, No Tenderness, No Masses Extremities: No Clubbing (2), 2+ LE b/l pitting edema Current Medications: Current Medications Sig/Xochitl Start time Last Medication Dose Route Stop Time Status Admin Acetaminophen 650 MG Q6P PRN 06/22 1745 AC PO Aspirin Buffered 325 MG DAILY 06/23 0900 AC 06/25 PO 0814 Atorvastatin Calcium 40 MG 1700 06/23 1700 AC 06/24 PO 1527 Divalproex Sodium 250 MG DAILY 06/23 0900 AC 06/25 PO 0814 Enoxaparin Sodium 40 MG DAILY 06/23 0900 AC 06/25 SC 0814 Escitalopram Oxalate 20 MG DAILY 06/23 09 AC 06/25 PO 0814 Furosemide 40 MG BID 06/22 2100 AC 06/25 IV 0813 Metoprolol Tartrate 12.5 MG BID 06/22 2100 AC 06/25 PO 0814 Last 24 Hrs of Lab/Yoan Results Last 24 Hrs of Labs/Mics: Laboratory Tests 06/25/17 0700: Anion Gap 11, Estimated GFR 45 L, BUN/Creatinine Ratio 26.7 H, CBC w Diff NO MAN DIFF REQ, RBC 3.18 L, MCV 100.6 H, MCH 33.3 H, MCHC 33.1, RDW 19.9 H, MPV 9.4, Gran % 55.9, Lymphocytes % 25.9, Monocytes % 14.6 H, Eosinophils % 2.9 , Basophils % 0.7, Absolute Granulocytes 3.3, Absolute Lymphocytes 1.5, Absolute Monocytes 0.9 H, Absolute Eosinophils 0.2, Absolute Basophils 0 Assessment/Plan Assessment: 81 year old male with PMH significant for colon cancer s/p colectomy, CAD, pacemaker, HTN, AVR, chronic anemia, recent prosthetic valve 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 and completion of 6 weeks of antibiotics, small embolic cerebellar strokes and recent pleural effusion s/p thoracentesis at [facility], admitted with shortness of breath and dyspnea on exertion with bilateral pleural effusions Bilateral pleural effusion s/p thoracentesis, no pneumothorax on repeat cxr no serum LDH available, added on likely transudative h/o CHF, elevated pH, low protein Dyspnea on exertion continue Iv diuresis Negative fluid balance >6L Check I/Os daily weights Acute kidney injury - creatinine 1.5 today, presented with 1.2 consider holding diuretics if creatinine continues to worsen Ischemic cardiomyopathy with EF of about 30% Obtain MUGA scan to quantify LVEF continue aspirin, statin, beta shannan Problem List: 1. Pleural effusion 2. 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 Patient feels well today. His breathing is unchanged. He is aware of visual hallucinations occuring last night, which he has had before. EKG shows ventricularly paced rhythm. BNP is elevated. 1. Bilateral pleural effusion 2. Dyspnea on exertion 3. Acute kidney injury - minimally worse 4. Ischemic cardiomyopathy with EF of about 30% Plan - Continue on telemetry - Right sided diagnostic and therapeutic thoracentesis done - Will need to obtain copies of all [place] records for further review and iimportanlty last echocardiogram - Continue home medications - Continue IV Lasix for now - Repeat BMP in AM - Hold Lisinopril for concern of worsening WAYNE - Plan for MUGA scant tomorrow for assessing LVEF - I/O, daily weights - DVT PPx
[2017-06-25 08:49] LABS: MEAN PLATELET VOLUME 9.4 FL (7.4-10.4); PLATELET COUNT 100 /CUMM (130-400)
[2017-06-25 14:18] VITALS: BP 92/60
--- NOTE | 2017-06-25 15:18 | PN- Cardiology ---
Subjective Subjective: Clinically doing well. Edema improving. Objective Vital Signs and I&Os Vital Signs Date Time Temp Pulse Resp B/P B/P Pulse O2 O2 Flow FiO2 Mean Ox Delivery Rate 06/25 1418 98.2 80 20 92/60 96 Room Air 06/25 0814 74 106/54 06/25 0627 97.3 70 18 106/54 93 Room Air 06/24 2300 98.3 80 20 108/78 92 06/24 2012 80 110/80 Intake & Output 06/25 1600 06/25 0806/25 0000 06/24 1600 06/24 0000 Intake Total 410 120 134 410 200 400 Output Total 850 300 950 800 550 750 Balance -440 -180 -816 -390 -350 -350 Intake, IV 10 14 10 Intake, Oral 400 120 120 400 200 400 Number 0 Bowel Movements Output, Urine 850 300 950 800 550 750 Patient 203 lb 207 lb Weight Weight Bed scale Bed scale Measurement Method Physical Exam: General Appearance: well developed/nourished, alert, awake, oriented Head: normal Neck: supple, JVP elevated at 2 cm at 45, carotid upstrokes normal bilaterally, no masses or thyromegaly Respiratory: chest non-tender, scattered rhonchi, decreased breath sounds right base Cardiovascular: regular rate/rhythm, normal S1, S2, 1/6 systolic murmur Abdomen: normal bowel sounds, soft, non-tender Extremities: 2+ bilateral pitting edema Current Medications: Current Medications Sig/Xochitl Start time Last Medication Dose Route Stop Time Status Admin Acetaminophen 650 MG Q6P PRN 06/22 1745 AC PO Aspirin Buffered 325 MG DAILY 06/23 09 AC 06/25 PO 0814 Atorvastatin Calcium 40 MG 1700 06/23 1700 AC 06/24 PO 1527 Divalproex Sodium 250 MG DAILY 06/23 09 AC 06/25 PO 0814 Enoxaparin Sodium 40 MG DAILY 06/23 0900 AC 06/25 SC 0814 Escitalopram Oxalate 20 MG DAILY 06/23 09 AC 06/25 PO 0814 Furosemide 40 MG BID 06/22 2099 AC 06/25 IV 0813 Metoprolol Tartrate 12.5 MG BID 06/22 2099 AC 06/25 PO 0814 Results Last 48 Hrs of Labs/Mics: Laboratory Tests 06/25/17 0700: Anion Gap 11, Estimated GFR 45 L, BUN/Creatinine Ratio 26.7 H, CBC w Diff NO MAN DIFF REQ, RBC 3.18 L, MCV 100.6 H, MCH 33.3 H, MCHC 33.1, RDW 19.9 H, MPV 9.4, Gran % 55.9, Lymphocytes % 25.9, Monocytes % 14.6 H, Eosinophils % 2.9 , Basophils % 0.7, Absolute Granulocytes 3.3, Absolute Lymphocytes 1.5, Absolute Monocytes 0.9 H, Absolute Eosinophils 0.2, Absolute Basophils 0 06/24/17 0720: Anion Gap 10, Estimated GFR 49 L, BUN/Creatinine Ratio 25.7 H, CBC w Diff NO MAN DIFF REQ, RBC 3.28 L, MCV 100.0 H, MCH 33.2 H, MCHC 33.2, RDW 20.1 H, MPV 9.5, Gran % 60.3, Lymphocytes % 22.4, Monocytes % 13.9 H, Eosinophils % 2.7 , Basophils % 0.7, Absolute Granulocytes 3.6, Absolute Lymphocytes 1.3, Absolute Monocytes 0.8 H, Absolute Eosinophils 0.2, Absolute Basophils 0 Assessment/Plan Assessment/Plan Assessment: 1. Congestive heart failure 2. Bilateral pleural effusions greater on the right side-stable post thoracentesis 3. History of coronary artery disease, status post stenting 4. 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 Cardio myopathy with ejection fraction approximately 30% 5. Mitral valve replacement 6. Permanent pacemaker 7. Hypertension 8. Hyperlipidemia 9. History of colon cancer 10. 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 Hallucinations of unclear etiology recommendations: -Admitted to telemetry monitored floor -Continue IV Lasix diuresis; the patient is approximately 6200 cc negative since admission -Echocardiogram reviewed-aortic and mitral bioprosthetic valve function appear normal. Left ventricular chamber size is normal with global hypokinesia and flattening of the interventricular septum with an ejection fraction of approximately 25-30%. -Obtain copies of all [place] records for further review, please try to obtain a copy of last echocardiogram or last assessment of left ventricular function -Further plans after the above -Further medication adjustments to be decided upon tomorrow -MUGA scan to better assess left ventricular ejection fraction Continue telemetry? Yes
[2017-06-25 22:12] VITALS: BP 102/60
[2017-06-26 06:26] VITALS: BP 110/80
--- NOTE | 2017-06-26 08:15 | PN- Housestaff ---
Vee SORIA,Benedicto 06/26/17 0815: Subjective Follow-up For: dyspnea CHF pleural effusions Tele-Events Since Last Visit: paced rhythm, no events Subjective: patient has complaints of exertional dyspnea but significant improved, lower extremity edema almost improved Review of Systems Constitutional: Reports: see HPI. Objective Last 24 Hrs of Vital Signs/I&O Vital Signs Date Time Temp Pulse Resp B/P B/P Pulse O2 O2 Flow FiO2 Mean Ox Delivery Rate 06/26 1018 86 110/80 06/26 0626 97.6 86 20 110/80 93 Room Air 06/26 0000 Room Air 06/25 2212 97.8 93 18 102/60 96 Room Air 06/25 2151 79 102/60 06/25 1418 98.2 80 20 92/60 96 Room Air Intake & Output 06/26 1600 06/26 0800 06/26 0000 Intake Total Output Total 1200 200 Balance -1200 -200 Output, Urine 1200 200 Patient 90.945 kg Weight Physical Exam General Appearance: Alert, Oriented X3, Cooperative, No Acute Distress Cardiovascular: Regular Rate, Normal S1, Normal S2 Lungs: diminished bibasilarly Abdomen: Normal Bowel Sounds, Soft, No Tenderness, No Masses Extremities: No Clubbing, No Cyanosis, Normal Pulses, 1+ bilateral lower extremity pitting edema (improving) Current Medications: Current Medications Sig/Xochitl Start time Last Medication Dose Route Stop Time Status Admin Acetaminophen 650 MG Q6P PRN 06/22 1745 AC PO Aspirin Buffered 325 MG DAILY 06/23 0900 AC 06/26 PO 1017 Atorvastatin Calcium 40 MG 1700 06/23 1700 AC 06/25 PO 1819 Divalproex Sodium 250 MG DAILY 06/23 09 AC 06/26 PO 1017 Enoxaparin Sodium 40 MG DAILY 06/23 0900 AC 06/26 SC 1024 Escitalopram Oxalate 20 MG DAILY 06/23 09 AC 06/26 PO 1017 Furosemide 40 MG 7:30 AM, & 4:30 PM 06/26 1200 AC PO Furosemide 40 MG BID 06/22 2100 DC 06/25 IV 2151 Metoprolol Tartrate 12.5 MG BID 06/22 2100 AC 06/26 PO 1018 Last 24 Hrs of Lab/Yoan Results Last 24 Hrs of Labs/Mics: Laboratory Tests 06/26/17 0658: Anion Gap 10, Estimated GFR 45 L, BUN/Creatinine Ratio 28.7 H Assessment/Plan Assessment: 81 year old male with PMH significant for colon cancer s/p colectomy, CAD, pacemaker, HTN, AVR, chronic anemia, recent prosthetic valve 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 and completion of 6 weeks of antibiotics, small embolic cerebellar strokes and recent pleural effusion s/p thoracentesis at [facility], admitted with shortness of breath and dyspnea on exertion with bilateral pleural effusions Bilateral pleural effusion s/p thoracentesis, no pneumothorax on repeat cxr Transudative by Light's criteria, h/o CHF, elevated pH, low protein, negative culture Dyspnea on exertion Changed IV lasix to PO lasix 40mg BID Negative fluid balance >6L Check I/Os daily weights Acute kidney injury - creatinine 1.5 again today consider holding diuretics if creatinine continues to worsen Changed diuretics to PO, aggressively diuresed Repeat BEP and renal function tomorrow morning Ischemic cardiomyopathy with EF of about 30% 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 Pleural effusion 2. 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 Patient feels well today. His breathing is better. His creatinine is stable at 1.5. 1. Acute on chronic systolic CHF 2. Bilateral pleural effusions s/p thoracentesis 3. Ischemic cardiomyopathy 4. 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 Visual hallucinations Plan - Stable for discharge home - Continue PO Lasix - Outpatient cardiology consult - Continue home medications
--- NOTE | 2017-06-26 08:47 | PN- Student ---
Subjective Subjective: No acute events overnight. Patient remain afebrile. Report feeling better and breathing okay. Denied headache, vision changes, sore throat, chest pain, SOB, abdominal pain, diarrhea, nausea/vomiting. Objective Objective: PE: General= alert and oriented without any distress HEENT= NCAT, EOMI, anicteric sclerae, moist oral mucosa, no exudate CVS= regular rate and rythm, normal S1 and S2 Lungs= decreased breath sounds bilateral Abdomen= present bowel sounds, soft, nontender, nondistended Extremities= trace pedal edema Results Results: Current Medications Sig/Xochitl Start time Last Medication Dose Stop Time Status Admin Acetaminophen 650 MG Q6P PRN 06/22 1745 AC (Tylenol) Aspirin Buffered 325 MG DAILY 06/23 0900 AC 06/26 (Ecotrin) 1017 Atorvastatin Calcium 40 MG 1700 06/23 1700 AC 06/25 (Lipitor) 1819 Divalproex Sodium 250 MG DAILY 06/23 0900 AC 06/26 (Depakote) 1017 Enoxaparin Sodium 40 MG DAILY 06/23 0900 AC 06/26 (Lovenox) 1024 Escitalopram Oxalate 20 MG DAILY 06/23 0900 AC 06/26 (Lexapro) 1017 Furosemide 40 MG 7:30 AM, & 4:30 PM 06/26 1200 AC (Lasix) Metoprolol Tartrate 12.5 MG BID 06/22 2100 AC 06/26 (Lopressor) 1018 Vital Signs Date Time Temp Pulse Resp B/P B/P Pulse O2 O2 Flow FiO2 Mean Ox Delivery Rate 06/26 1018 86 110/80 06/26 0626 97.6 86 20 110/80 93 Room Air 06/26 0000 Room Air 06/25 2212 97.8 93 18 102/60 96 Room Air 06/25 2151 79 102/60 06/25 1418 98.2 80 20 92/60 96 Room Air Intake & Output 06/26 1600 06/26 0800 06/26 0000 Intake Total Output Total 1200 200 Balance -1200 -200 Output, Urine 1200 200 Patient 201 lb Weight Laboratory Tests 06/26/17 0658: Anion Gap 10, Estimated GFR 45 L, BUN/Creatinine Ratio 28.7 H 06/25/17 0700: Anion Gap 11, Estimated GFR 45 L, BUN/Creatinine Ratio 26.7 H, Lactate Dehydrogenase 606, CBC w Diff NO MAN DIFF REQ, RBC 3.18 L, MCV 100.6 H, MCH 33.3 H, MCHC 33.1, RDW 19.9 H, MPV 9.4, Gran % 55.9, Lymphocytes % 25.9, Monocytes % 14.6 H, Eosinophils % 2.9, Basophils % 0.7, Absolute Granulocytes 3.3, Absolute Lymphocytes 1.5, Absolute Monocytes 0.9 H, Absolute Eosinophils 0.2, Absolute Basophils 0 06/24/17 0720: Anion Gap 10, Estimated GFR 49 L, BUN/Creatinine Ratio 25.7 H, CBC w Diff NO MAN DIFF REQ, RBC 3.28 L, MCV 100.0 H, MCH 33.2 H, MCHC 33.2, RDW 20.1 H, MPV 9.5, Gran % 60.3, Lymphocytes % 22.4, Monocytes % 13.9 H, Eosinophils % 2.7 , Basophils % 0.7, Absolute Granulocytes 3.6, Absolute Lymphocytes 1.3, Absolute Monocytes 0.8 H, Absolute Eosinophils 0.2, Absolute Basophils 0 06/23/17 1440: Pleural pH 7.48 06/23/17 1440: Fluid WBC 295 H, Fld Total RBCs Counted 281 H 06/23/17 1440: Lymphocytes 75, % Normal PMNs 9, Misc Hematology Test , Phlebotomy Draw Site RT THORACENTESIS, Fluid Total Protein 3.0, Fluid Albumin 1.2, Fluid LDH 224 Microbiology 06/24 1439 BODY FLUID: Body Fluid Culture - RES 06/24 1439 BODY FLUID: Gram Stain - RES Assessment/Plan Assessment: 81 y/o M with PMHx significant for colon cancer s/p colectomy, CAD, abdominal pacemaker, HTN, AVR, chronic anemia, recent 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 Plan: Bilateral pleural effusion -s/p thoracentesis, no pneumothorax on repeat cxr -likely transudative with a ratio of 0.4, h/o CHF -Lasix 40mg PO Dyspnea on exertion -continue Iv diuresis -I/Os daily weights Acute kidney injury (Improved) -consider holding diuretics if creatinine continues to worsen -Stable creatinine at 1.5 Ischemic cardiomyopathy with EF of about 30% -Obtain MUGA scan to quantify LVEF (today) -continue aspirin, statin, beta shannan
--- NOTE | 2017-06-26 11:05 | PN- Cardiology ---
Subjective Subjective: Shortness of breath is improving. No chest pain. No palpitations. No diaphoresis. No nausea or vomiting. Edema is improving. Objective Vital Signs and I&Os Vital Signs Date Time Temp Pulse Resp B/P B/P Pulse O2 O2 Flow FiO2 Mean Ox Delivery Rate 06/26 1018 86 110/80 06/26 0626 97.6 86 20 110/80 93 Room Air 06/26 0000 Room Air 06/25 2212 97.8 93 18 102/60 96 Room Air 06/25 2151 79 102/60 06/25 1418 98.2 80 20 92/60 96 Room Air Intake & Output 06/26 1600 06/26 0800 06/26 0000 06/25 1600 06/25 0806/25 0000 Intake Total 410 120 134 Output Total 1200 200 850 300 950 Balance -1200 -200 -440 -180 -816 Intake, IV 10 14 Intake, Oral 400 120 120 Output, Urine 1200 200 850 300 950 Patient 201 lb 203 lb Weight Weight Bed scale Measurement Method Physical Exam: Gen: NAD HEENT: normal Lungs: Scattered rales bilaterally, normal resp. effort Heart: RRR, S1, S2, 1/6 systolic murmur Abdomen: Soft, nontender, no masses Extremities: 1+ edema Neuro: Alert and oriented x 3, cranial nerves intact Current Medications: Current Medications Sig/Xochitl Start time Last Medication Dose Route Stop Time Status Admin Acetaminophen 650 MG Q6P PRN 06/22 1745 AC PO Aspirin Buffered 325 MG DAILY 06/23 09 AC 06/26 PO 1017 Atorvastatin Calcium 40 MG 1700 06/23 1700 AC 06/25 PO 1819 Divalproex Sodium 250 MG DAILY 06/23 09 AC 06/26 PO 1017 Enoxaparin Sodium 40 MG DAILY 06/23 0900 AC 06/26 SC 1024 Escitalopram Oxalate 20 MG DAILY 06/23 0900 AC 06/26 PO 1017 Furosemide 40 MG BID 06/22 2100 AC 06/25 IV 2151 Metoprolol Tartrate 12.5 MG BID 06/22 2100 AC 06/26 PO 1018 Results Last 48 Hrs of Labs/Mics: Laboratory Tests 06/26/17 0658: Anion Gap 10, Estimated GFR 45 L, BUN/Creatinine Ratio 28.7 H 06/25/17 0700: Anion Gap 11, Estimated GFR 45 L, BUN/Creatinine Ratio 26.7 H, Lactate Dehydrogenase 606, CBC w Diff NO MAN DIFF REQ, RBC 3.18 L, MCV 100.6 H, MCH 33.3 H, MCHC 33.1, RDW 19.9 H, MPV 9.4, Gran % 55.9, Lymphocytes % 25.9, Monocytes % 14.6 H, Eosinophils % 2.9, Basophils % 0.7, Absolute Granulocytes 3.3, Absolute Lymphocytes 1.5, Absolute Monocytes 0.9 H, Absolute Eosinophils 0.2, Absolute Basophils 0 Assessment/Plan Assessment/Plan Assessment: 1. Congestive heart failure 2. Bilateral pleural effusions greater on the right side-stable post thoracentesis 3. History of coronary artery disease, status post stenting 4. 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 Cardio myopathy with ejection fraction approximately 30% 6. Mitral valve replacement 7. Permanent pacemaker 8. Hypertension 9. Hyperlipidemia 10. 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 Hallucinations of unclear etiology Plan: * MUGA scan planned for today to clarify ejection fraction given discrepancy between ejection fraction on echocardiogram at [place] and previous echocardiogram at [place] * Would change Lasix to 40 mg p.o. twice daily * Repeat basic metabolic profile tomorrow * Continue other cardiac medications Continue telemetry? Yes
--- NOTE | 2017-06-26 17:13 | ECHOCARDIOGRAM REPORT ---
BLANCAISHAN CROOK Age: 81 : 1935 Gender: M Exam Date: 06/23/2017 12:03 Exam Location: [address] Ht (in): 65 Wt (lb): 195 BSA: 2.05 BP: 148 / 82 Ordering Physician: Rubio Workman MD Referring Physician: Rubio Workman MD Technologist: Ford Forde [facility] Room Number: 179-2 Indications: HEART FAILURE Rhythm: Other Technical Quality: Fair FINDINGS Left Ventricle Normal size left ventricle. Moderately abnormal left ventricular ejection fraction estimated at 30-35%. Abnormal septal motion. Right Ventricle Mild right ventricular dilatation. Right Atrium Mild right atrial dilatation. Left Atrium Left atrial dilatation. Mitral Valve Normally functioning prosthetic mitral valve. Bioprosthetic mitral valve. Aortic Valve Normally functioning prosthetic aortic valve. Bioprosthetic aortic valve. Tricuspid Valve Tricuspid valve not well visualized, grossly normal. Mild-to- moderate tricuspid regurgitation. Right ventricular systolic pressure estimated at 40 mmHg. Pulmonic Valve Pulmonic valve not well visualized, grossly normal. Mild pulmonic regurgitation. Pericardium No pericardial effusion. Great Vessels Aortic root and proximal ascending aorta not well visualized, grossly normal. CONCLUSIONS 1. A bioprosthetic aortic valve is present which appears to be functioning normally. 2. Bioprosthetic mitral valve is present was also appears to be functioning normally. 3. There is no significant pericardial fluid present. 4. The left ventricular chamber size is normal. There is global hypokinesia present. The ejection fraction is approximately 25-30%. Flattening of the ventricular septum is present consistent with the presence of pulmonary hypertension. 5. Mild enlargement of the right heart chambers is present. Mild to moderate tricuspid and pulmonic insufficiency are present. The estimated right ventricular systolic pressure is approximate 40 mmHg. 6. A MUGA scan would be useful in this patient to better assess left ventricular systolic function. Eloisa Howell M.D. (Electronically Signed) Final Date: 26 June 2017 17:12 MEASUREMENTS (Male / Female) Normal Values 2D ECHO LV Diastolic Diameter PLAX 4.9 cm 4.2 - 5.9 / 3.9 - 5.3 cm LV Systolic Diameter PLAX 3.8 cm 2.1 - 4.0 cm LV Fractional Shortening PLAX 22.4 % 25 - 46 % LV Ejection Fraction 2D Teich 45.1 % IVS Diastolic Thickness 1.3 cm LVPW Diastolic Thickness 1.3 cm LV Relative Wall Thickness 0.5 RV Internal Dim ED PLAX 4.4 cm 1.9 - 3.8 cm LVOT Diameter 1.7 cm Aortic Root Diameter 2.4 cm LA Systolic Diameter LX 4.7 cm 3.0 - 4.0 / 2.7 - 3.8 cm LA Volume 76.0 cm 18 - 58 / 22 - 52 cm Ascending Aorta Diameter 3.5 cm DOPPLER AV Peak Velocity 164.0 cm/s AV Peak Gradient 10.8 mmHg AV Mean Velocity 109.0 cm/s AV Mean Gradient 6.0 mmHg AV Velocity Time Integral 33.6 cm LVOT Peak Velocity 67.7 cm/s LVOT Peak Gradient 1.8 mmHg LVOT Mean Velocity 44.6 cm/s LVOT Mean Gradient 1.0 mmHg LVOT Velocity Time Integral 12.2 cm LVOT Stroke Volume 27.7 cm AV Area Cont Eq vti 0.8 cm AV Area Cont Eq pk 0.9 cm MV Peak Velocity 149.5 cm/s MV Peak Gradient 8.9 mmHg MV Mean Velocity 70.5 cm/s MV Mean Gradient 3.0 mmHg Mitral E Point Velocity 163.0 cm/s Mitral A Point Velocity 85.8 cm/s Mitral E to A Ratio 1.9 MV PHT Velocity 183.0 cm/s MV Deceleration [place] 664.0 cm/s MV Pressure Half Time 82.7 ms MV Area PHT 2.7 cm MV Deceleration Time 254.0 ms TR Peak Velocity 295.0 cm/s TR Peak Gradient 34.8 mmHg Right Atrial Pressure 10.0 mmHg Pulmonary Artery Systolic Pressu 44.8 mmHg Right Ventricular Systolic Press 44.8 mmHg PV Peak Velocity 80.0 cm/s PV Peak Gradient 2.6 mmHg PV Mean Velocity 52.8 cm/s PV Mean Gradient 1.0 mmHg PV Velocity Time Integral 15.5 cm LV E' Lateral Velocity 3.9 cm/s Mitral E to LV E' Lateral Ratio 41.8 LV E' Septal Velocity 3.9 cm/s Mitral E to LV E' Septal Ratio 41.8
[2017-06-26 17:16] VITALS: BP 102/70
[2017-06-26 22:45] VITALS: BP 82/48
[2017-06-26 22:53] VITALS: BP 82/48
[2017-06-26 23:32] VITALS: BP 92/58
--- NOTE | 2017-06-26 23:41 | Event Note ---
Event Note Event Note: Patient's bp was low this evening runnins/40s. 2nd dose of lasix and metoprolol was held. Patient was seen and examined. Patient was sitting at the edge of the bed in no acute distress. Patient denies any lightheadedness, dizziness, palpitations, chest pain or shortness of breath. Patient reported no symptoms when he stood up. Patient states his blood pressure runs low. Repeat bp was 90/58.
[2017-06-27 06:00] VITALS: BP 112/68
--- NOTE | 2017-06-27 07:18 | PN- Housestaff ---
See Addendum Subjective Follow-up For: CHF exacerbation pleural effusion s/p thoracentesis Acute kidney injury Tele-Events Since Last Visit: paced, no events Subjective: breathing is improved, ambulated with walker lasix and metoprolol were held for hypotension with SBP 80-90 yesterday Review of Systems Constitutional: Reports: see HPI. Objective Last 24 Hrs of Vital Signs/I&O Vital Signs Date Time Temp Pulse Resp B/P B/P Pulse O2 O2 Flow FiO2 Mean Ox Delivery Rate 06/27 1039 70 100/50 06/27 0800 Room Air 06/27 0748 97.8 72 20 108/70 97 Room Air 06/27 0600 97.6 79 16 112/68 96 06/27 0000 95 Room Air 06/26 2332 80 92/58 06/26 2253 98.1 78 18 82/48 97 Room Air 06/26 2245 79 82/48 06/26 2156 71 80/48 06/26 1716 97.6 80 18 102/70 96 Room Air 06/26 1600 Room Air Intake & Output 06/27 1600 06/27 0800 06/27 0000 Intake Total 100 400 Output Total 300 150 Balance -200 250 Intake, Oral 100 400 Number 0 Bowel Movements Output, Urine 300 150 Physical Exam General Appearance: Alert, Oriented X3, Cooperative, No Acute Distress Cardiovascular: Regular Rate, Normal S1, Normal S2, No Murmurs Lungs: Clear to Auscultation, diminished right base Abdomen: Normal Bowel Sounds, Soft, No Tenderness, No Masses Extremities: No Clubbing, No Cyanosis, Normal Pulses, 1+ bilateral lower extremity edema Current Medications: Current Medications Sig/Xochitl Start time Last Medication Dose Route Stop Time Status Admin Acetaminophen 650 MG Q6P PRN 06/22 1745 AC PO Aspirin Buffered 325 MG DAILY 06/23 899 AC 06/27 PO 1039 Atorvastatin Calcium 40 MG 1700 06/23 1700 AC 06/26 PO 1601 Divalproex Sodium 250 MG DAILY 06/23 899 AC 06/27 PO 1039 Enoxaparin Sodium 40 MG DAILY 06/23 899 AC 06/27 SC 1042 Escitalopram Oxalate 20 MG DAILY 06/23 899 AC 06/27 PO 1039 Furosemide 40 MG DAILY 06/28 899 AC PO Furosemide 40 MG 7:30 AM, & 4:30 PM 06/26 1200 DC 06/27 PO 0744 Furosemide 40 MG BID 06/22 2099 DC 06/25 IV 2151 Metoprolol Tartrate 12.5 MG BID 06/22 2100 AC 06/26 PO 1018 Last 24 Hrs of Lab/Yoan Results Last 24 Hrs of Labs/Mics: Laboratory Tests 06/27/17 0704: Anion Gap 10, Estimated GFR 49 L, BUN/Creatinine Ratio 29.3 H, Magnesium 1.9, Vitamin B12 682, Folate > 20.0 H Assessment/Plan Assessment: 81 year old male with PMH significant for colon cancer s/p colectomy, CAD, pacemaker, HTN, AVR, chronic anemia, 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 Howell 1 week after discharge Heart healthy diet DVT ppx-lovenox 40mg subcutaneous daily Full code Problem List: 1. Acute CHF (congestive heart failure) 2. Pleural effusion 3. Acute kidney failure Pain Ratin Pain Location: n/a Pain Goal: Pain 4 or less Pain Plan: prn Tomorrow's Labs & Rationales: bep
--- NOTE | 2017-06-27 07:45 | PN- Student ---
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 At that time patient seen and examined and found to be asymptomatic. Subjective: Patient breathing is "much better". Mentioned that he is using the IS and taking good deep breaths. Appetite is back. Patient is been out of bed and walking around. Denied lightheadedness, SOB, chest pain. Objective Objective: General= alert and oriented without any distress HEENT= NCAT, EOMI, anicteric sclerae, moist oral mucosa, no exudate CVS= regular rate and rythm, normal S1 and S2 Lungs= decreased breath sounds bilateral Abdomen= present bowel sounds, soft, nontender, nondistended Extremities= +2 pedal edema Results Results: Laboratory Tests 06/28 703 Chemistry Sodium (137 - 145 mmol/L) 140 Potassium (3.5 - 5.1 mmol/L) 4.3 Chloride (98 - 107 mmol/L) 98 Carbon Dioxide (22 - 30 mmol/L) 32 H Anion Gap (5 - 16) 10 BUN (9 - 20 mg/dL) 41 H Creatinine (0.7 - 1.2 mg/dL) 1.4 H Estimated GFR (>60 ml/min) 49 L BUN/Creatinine Ratio (7 - 25 %) 29.3 H Magnesium (1.6 - 2.3 mg/dL) 1.9 Vitamin B12 (239 - 931 pg/mL) Pending Folate (2.76 - 20.0 ng/mL) Pending Vital Signs Date Time Temp Pulse Resp B/P B/P Pulse O2 O2 Flow FiO2 Mean Ox Delivery Rate 06/27 0748 97.8 72 20 108/70 97 Room Air 06/27 0600 97.6 79 16 112/68 96 06/27 0000 95 Room Air 06/26 2332 80 92/58 06/26 2253 98.1 78 18 82/48 97 Room Air 06/26 2245 79 82/48 06/26 2156 71 80/48 06/26 1716 97.6 80 18 102/70 96 Room Air 06/26 1600 Room Air 06/26 1018 86 110/80 Intake & Output 06/27 0800 06/27 0000 06/26 1600 Intake Total 100 400 450 Output Total 300 150 450 Balance -200 250 0 Intake, Oral 100 400 450 Number 0 Bowel Movements Output, Urine 300 150 450 Patient 200 lb Weight Assessment/Plan Assessment: 81 y/o M with PMHx significant for CAD, HTN, AVR, chronic anemia, 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 Patient had recent pleural effusion s/p thoracentesis at [facility]. During this admission patient presented with shortness of breath and dyspnea on exertion. Plan: CHF exacerbation: -ECHO showed global hypokinesis with EF of 25-30% -Preliminary MUGA scan showed global hypokinesis with EF~39% -Restart lisinopril 5mg PO daily accordingly (consider change to Entresto in the future) Dyspnea: -Problaly secondary to HFrEF -CXR showed bilateral pleural effusions -Thoracentesis was performed-trasudate fluid (total protein 3.0, albumin in pleural fluid 1.2; effusion protein/serum proten is 0.4) -Lasix 40mg PO daily Acute kidney injury-Creatinine 1.4 today: -[place] PO intake Hx of Ischemic cardiomyopathy: -Cont. aspirin, statin, beta shannan Heart healthy diet DVT prophylaxis
[2017-06-27 07:48] VITALS: BP 108/70
--- NOTE | 2017-06-27 10:36 | PN- Cardiology ---
Subjective Subjective: The patient was hypotensive last night, and Lasix was held. He notes that his shortness of breath is improving. No chest pain. No palpitations. No diaphoresis. He had a MUGA scan yesterday. Objective Vital Signs and I&Os Vital Signs Date Time Temp Pulse Resp B/P B/P Pulse O2 O2 Flow FiO2 Mean Ox Delivery Rate 06/27 0800 Room Air 06/27 0748 97.8 72 20 108/70 97 Room Air 06/27 0600 97.6 79 16 112/68 96 06/27 0000 95 Room Air 06/26 2332 80 92/58 06/26 2253 98.1 78 18 82/48 97 Room Air 06/26 2245 79 82/48 06/26 2156 71 80/48 06/26 1716 97.6 80 18 102/70 96 Room Air 06/26 1600 Room Air Intake & Output 06/27 1600 06/27 0800 06/27 0000 06/26 1600 06/26 0800 06/26 0000 Intake Total 100 400 450 Output Total 300 604 105 8982 200 Balance -200 250 0 -1200 -200 Intake, Oral 100 400 450 Number 0 Bowel Movements Output, Urine 300 519 356 9727 200 Patient 200 lb 201 lb Weight Physical Exam: Gen: NAD HEENT: normal Lungs: Scattered rales bilaterally, normal resp. effort Heart: RRR, S1, S2, 1/6 systolic murmur Abdomen: Soft, nontender, no masses Extremities: 1+ edema Neuro: Alert and oriented x 3, cranial nerves intact Current Medications: Current Medications Sig/Xochitl Start time Last Medication Dose Route Stop Time Status Admin Acetaminophen 650 MG Q6P PRN 06/22 1745 AC PO Aspirin Buffered 325 MG DAILY 06/23 899 AC 06/26 PO 1017 Atorvastatin Calcium 40 MG 1700 06/23 1700 AC 06/26 PO 1601 Divalproex Sodium 250 MG DAILY 06/23 899 AC 06/26 PO 1017 Enoxaparin Sodium 40 MG DAILY 06/23 899 AC 06/26 SC 1024 Escitalopram Oxalate 20 MG DAILY 06/23 899 AC 06/26 PO 1017 Furosemide 40 MG DAILY 06/28 899 AC PO Furosemide 40 MG 7:30 AM, & 4:30 PM 06/26 1200 DC 06/27 PO 0744 Furosemide 40 MG BID 06/22 2100 DC 06/25 IV 2151 Metoprolol Tartrate 12.5 MG BID 06/22 2100 AC 06/26 PO 1018 Results Last 48 Hrs of Labs/Mics: Laboratory Tests 06/27/17 0704: Anion Gap 10, Estimated GFR 49 L, BUN/Creatinine Ratio 29.3 H, Magnesium 1.9, Vitamin B12 682, Folate > 20.0 H 06/26/17 0658: Anion Gap 10, Estimated GFR 45 L, BUN/Creatinine Ratio 28.7 H Recent Imaging Studies: MUGA scan, preliminary result: LVEF 39% Assessment/Plan Assessment/Plan Assessment: 1. Acute on chronic systolic heart failure, LVEF 39% on unofficial reading of MUGA scan 2. Bilateral pleural effusions greater on the right side-stable post thoracentesis 3. History of coronary artery disease, status post stenting 4. 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 Cardiomyopathy with ejection fraction approximately 30% 6. Mitral valve replacement 7. Permanent pacemaker 8. Hypertension 9. Hyperlipidemia 10. 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 Hypotension noted overnight Plan: * Given hypotension and statin, would decrease Lasix to 40 mg daily * LVEF 39% on preliminary reading of MUGA scan Would restart lisinopril 5 mg daily for treatment of LV systolic dysfunction. In the future, would consider changing to Entresto if BP is adequate * Likely ready for discharge soon * Follow up with Dr. Howell 1 week after discharge Continue telemetry? Yes
--- NOTE | 2017-06-27 12:23 | NUCLEAR MEDICINE REPORT ---
EXAMINATION: NM GATED BLOOD POOL CLINICAL INFORMATION: Decreased ejection fraction. Presumptive diagnosis: Systolic CHF COMPARISON: None TECHNIQUE: Gated blood pool images following intravenous administration of 27.3 mCi technetium 99m pertechnetate. FINDINGS: Gated images demonstrate diffuse hypokinesia. Left ventricular ejection fraction 39% IMPRESSION: Diffuse hypokinesia and decreased ejection fraction measured at 39%.
[2017-06-27 14:27] VITALS: BP 96/60
[2017-06-27 23:11] VITALS: BP 98/64
[2017-06-28 06:24] VITALS: BP 112/66
--- NOTE | 2017-06-28 07:45 | PN- Housestaff ---
See Addendum Subjective Follow-up For: CHF exacerbation pleural effusion s/p thoracentesis Acute kidney injury Tele-Events Since Last Visit: Paced rhythm, no events Subjective: patient's breathing is improved, no chest pain, no new complaints blood pressure was low yesterday and lasix was held, SBP 96-112 today Review of Systems Constitutional: Reports: see HPI. Objective Last 24 Hrs of Vital Signs/I&O Vital Signs Date Time Temp Pulse Resp B/P B/P Pulse O2 O2 Flow FiO2 Mean Ox Delivery Rate 06/28 0524 97.7 71 20 112/66 95 Room Air 06/27 2311 97.4 79 18 98/64 95 Room Air 06/27 2216 68 96/60 06/27 2106 Room Air 06/27 1600 Room Air 06/27 1427 98.3 78 18 96/60 97 Room Air 06/27 1039 70 100/50 Intake & Output 06/28 1600 06/28 0800 06/28 0000 Intake Total 280 240 Output Total Balance 280 240 Intake, Oral 280 240 Patient 44.112 kg Weight Physical Exam General Appearance: Alert, Oriented X3, Cooperative, No Acute Distress Cardiovascular: Regular Rate, Normal S1, Normal S2, No Murmurs Lungs: right base diminished Abdomen: Normal Bowel Sounds, Soft, No Tenderness, No Masses Extremities: No Clubbing, No Cyanosis, Normal Pulses, 1+ bilateral lower extremity edema Current Medications: Current Medications Sig/Xochitl Start time Last Medication Dose Route Stop Time Status Admin Acetaminophen 650 MG Q6P PRN 06/22 1745 AC PO Aspirin Buffered 325 MG DAILY 06/23 899 AC 06/27 PO 1039 Atorvastatin Calcium 40 MG 1700 06/23 1700 AC 06/27 PO 1552 Divalproex Sodium 250 MG DAILY 06/23 09 AC 06/27 PO 1039 Enoxaparin Sodium 40 MG DAILY 06/23 09 AC 06/27 SC 1042 Escitalopram Oxalate 20 MG DAILY 06/23 899 AC 06/27 PO 1039 Furosemide 40 MG DAILY 06/28 899 AC PO Furosemide 40 MG 7:30 AM, & 4:30 PM 06/26 1200 DC 06/27 PO 0744 Metoprolol Tartrate 12.5 MG BID 06/22 2100 AC 06/26 PO 1018 Patient Medication 1 ED ONE ONE 06/27 184 DC Teaching ED 06/27 184 Last 24 Hrs of Lab/Yoan Results Last 24 Hrs of Labs/Mics: Laboratory Tests 06/28/17 0645: Sodium Pending, Potassium Pending, Chloride Pending, Carbon Dioxide Pending, Anion Gap Pending, BUN Pending, Creatinine Pending, BUN/Creatinine Ratio Pending Assessment/Plan Assessment: 81 year old male with PMH significant for colon cancer s/p colectomy, CAD, pacemaker, HTN, AVR, chronic anemia, 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 Bilateral pleural effusion s/p thoracentesis, no pneumothorax on repeat cxr Transudative by Light's criteria, h/o CHF, elevated pH, low protein, negative culture Dyspnea on exertion: Secondary to HFrEF Reduced PO lasix 40mg daily given WAYNE and relative hypotension yesterday Negative fluid balance >6L Check I/Os, daily weights Follow up cardiology recommendations Acute kidney injury - creatinine improving gradually 1.2 today Reduced frequency of diuretics back to home dose of 40mg daily Trend renal function Lisinopril on hold, consider reducing dose on discharge Ischemic cardiomyopathy with EF of about 30% 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 Howell 1 week after discharge Heart healthy diet DVT ppx-lovenox 40mg subcutaneous daily Full code Stable for discharge, follow up with Dr. Howell Problem List: 1. Acute kidney failure 2. Acute CHF (congestive heart failure) Pain Ratin Pain Location: n/a Pain Goal: Pain 4 or less Pain Plan: prn Tomorrow's Labs & Rationales: none, discharge
[2017-06-28 08:10] VITALS: BP 110/64
--- NOTE | 2017-06-28 08:25 | Patient Discharge Instructions ---
Discharge Instructions General Discharge Information You were seen/treated for: CHF pleural effusion Acute kidney injury Special Instructions: Please follow up with Dr. Wilson and Dr. Howell in one week. Your blood pressure medicine lisinopril dose was reduced because of your kidney injury. Acute Coronary Syndrome Inclusion Criteria At DC or during hospital stay patient has or had the following: ACS DIAGNOSIS No Discharge Core Measures Meds if any: Prescribed or Continued at Discharge Meds if any: NOT Prescribed or Continued at Discharge Congestive Heart Failure Inclusion Criteria At DC or during hospital stay patient has or had the following: CHF DIAGNOSIS Yes Discharge Core Measures Meds if any: Prescribed or Continued at Discharge ZELDA/ARB for EF <40% Yes Meds if any: NOT Prescribed or Continued at Discharge Cerebrovascular accident Inclusion Criteria At DC or during hospital stay patient has or had the following: CVA/TIA Diagnosis No Discharge Core Measures Meds if any: Prescribed or Continued at Discharge Meds if any: NOT Prescribed or Continued at Discharge Venous thromboembolism Inclusion Criteria VTE Diagnosis No VTE Type NONE VTE Confirmed by (Test) NONE Discharge Core Measures - Per Current guidelines, there needs to be overlap - treatment for the first 5 days of Warfarin therapy. - If discharged on Warfarin prior to 5 days of - overlap therapy, the patient will need to be - assessed for post discharge needs including - *Post discharge parental anticoagulation - *Warfarin and/or parental anticoagulation education - *Follow up date to check INR post discharge At least 5 days overlap therapy as Inpatient No Meds if any: Prescribed or Continued at Discharge Note: Overlap Therapy is Warfarin and Anticoagulant Meds if any: NOT Prescribed or Continued at Discharge
[2017-06-28] MEDS ORDERED: LISINOPRIL2.5 M1 PO ×2 (08:37→09:55)
--- NOTE | 2017-06-28 08:54 | Discharge Summary ---
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 The patient's dyspnea was multifactorial from CHF exacerbation and bilateral pleural effusions. The patient was started on aggressive intravenous diuresis with furosemide. He diuresed approximately seven liters in five days. Diuresis was limited by mild hypotension SBP (80s-90s) and acute kidney injury ( creatinine elevated to 1.5) and he was converted to oral and eventually back to his home dose of 40mg furosemide daily. His lisinopril was held as an inpatient and restarted on discharge at a lower dose (5mg -> 2.5mg) after normalization of renal function. The patient had bilateral pleural effusions, right greater than left with exertional dyspnea in the setting of heart failure. Right sided thoracentesis was performed by interventional radiology with significant reduction in volume on post procedure imaging (small bilateral effusions), stable on serial x-rays. The pleural fluid was transudative by Light's criteria consistent with congestive heart failure. Cardiology was consulted. Serial troponins were negative for myocardial ischemia. His other medications (aspirin, statin, beta shannan) for CAD with ischemic cardiomyopathy were all continued. An echocardiogram was performed that demonstrated global hypokinesia, LVEF 25-30%, and normally function bioprosthetic valves. There was a discrepancy in LV function compared to echocardiography performed at [place] and a MUGA scan was recommended to quantify LVEF. MUGA demonstrated an LVEF of 39%. The patient symptomatically improved and was stable for discharge with follow up with cardiology and CHF clinic. Cardiology also recommended consideration of Entresto for HFrEF in the future if blood pressure and renal function allow. The patient was instructed to follow up with his primary care physician, Dr. Wilson, and mixer helper, Dr. Howell, one week after discharge. Allergies: Coded Allergies: No Known Allergies (12/23/16) Significant Procedures: Echocardiogram 06/26/17 1. A bioprosthetic aortic valve is present which appears to be functioning normally. 2. Bioprosthetic mitral valve is present was also appears to be functioning normally. 3. There is no significant pericardial fluid present. 4. The left ventricular chamber size is normal. There is global hypokinesia present. The ejection fraction is approximately 25-30%. Flattening of the ventricular septum is present consistent with the presence of pulmonary hypertension. 5. Mild enlargement of the right heart chambers is present. Mild to moderate tricuspid and pulmonic insufficiency are present. The estimated right ventricular systolic pressure is approximate 40 mmHg. 6. A MUGA scan would be useful in this patient to better assess left ventricular systolic function. MUGA Scan 06/26/17 IMPRESSION: Diffuse hypokinesia and decreased ejection fraction measured at 39%. Disposition Summary Disposition Principal Diagnosis: Acute exacerbation of congestive heart failure with reduced ejection fraction Bilateral pleural effusions, right greater than left requiring right sided thoracentesis Acute kidney injury Coronary artery disease with ischemic cardiomyopathy Additional Diagnosis: Coronary artery disease, s/p stenting History of bioprosthetic aortic valve endocarditis, status post reoperation Mitral valve replacement Permanent pacemaker Hypertension Hyperlipidemia History of colon cancer Hallucinations Discharge Disposition: home or self care Discharge Instructions General Discharge Information Code Status: Full Code Patient's Diet: Heart healthy diet Patient's Activity: As tolerated Follow-Up Instructions/Appts: Please follow up with your primary care physician, Dr. Wilson, and mixer helper, Dr. Howell one week after discharge. Medications at Discharge Discharge Medications: Stop taking the following medications: Lisinopril (Lisinopril) 5 MG TABLET ORAL DAILY Qty = 30 Continue taking these medications: Divalproex Sodium (Divalproex Sodium) 250 MG TABLET.DR Brown Tablet ORAL DAILY Comments: Last Taken: 06/28/17 Time: 8:00 AM Metoprolol Tartrate (Metoprolol Tartrate) 25 MG TABLET 0.5 Tablet ORAL TWICE DAILY Comments: Last Taken: 06/28/17 Time: 8:00 AM Escitalopram Oxalate (Lexapro) 20 MG TABLET 1 Tablet ORAL DAILY Comments: Last Taken: 06/28/17 Time: 8:00 AM Aspirin (Ecotrin*) 325 MG TABLET.DR Brown Tablet ORAL DAILY Comments: Last Taken: 06/28/17 Time: 8:00 AM Atorvastatin Calcium (Atorvastatin Calcium) 40 MG TABLET 1 Tablet ORAL 5 PM Qty = 30 Comments: Last Taken: 06/27/17 Time:3:50 PM Furosemide (Lasix) 40 MG TABLET 1 Tablet ORAL DAILY Comments: Last Taken: 06/28/17 Time: 8:00 AM Start taking the following new medications: Lisinopril (Lisinopril) 2.5 MG TABLET 1 Tablet ORAL DAILY Qty = 30 No Refills Instructions: . Comments: Last Taken: NOT GIVEN IN HOSPITAL Time: Copies To: Steve SORIA,Jenny; Dante SORIA,Whitney Silva Attending MD Review Statement Documenting Attending: June SORIA,Pato Waktins MD,Pato
--- NOTE | 2017-06-28 11:47 | PN- Cardiology ---
Subjective Subjective: Clinically stable. No new issues. Echocardiogram confirms ejection fraction of approximately 35% which is very similar to the MUGA scan estimate of 39%. Objective Vital Signs and I&Os Vital Signs Date Time Temp Pulse Resp B/P B/P Pulse O2 O2 Flow FiO2 Mean Ox Delivery Rate / 0810 110/64 / 0803 80 112/66 / 0800 95 Room Air 06/28 0624 97.7 71 20 112/66 95 Room Air 06/27 2311 97.4 79 18 98/64 95 Room Air 06/27 2216 68 96/60 06/27 2106 Room Air 06/27 1600 Room Air 06/27 1427 98.3 78 18 96/60 97 Room Air Intake & Output 06/28 0000 06/27 1600 06/27 0806/27 0000 Intake Total 280 240 580 100 400 Output Total 300 150 Balance 280 240 580 -200 250 Intake, IV 20 Intake, Oral 280 240 560 100 400 Number 0 Bowel Movements Output, Urine 300 150 Patient 97 lb 4 oz Weight Physical Exam: General Appearance: well developed/nourished, alert, awake, oriented Head: normal Neck: supple, JVP elevated at 2 cm at 45, carotid upstrokes normal bilaterally, no masses or thyromegaly Respiratory: chest non-tender, scattered rhonchi, decreased breath sounds right base Cardiovascular: regular rate/rhythm, normal S1, S2, 1/6 systolic murmur Abdomen: normal bowel sounds, soft, non-tender Extremities: 2+ bilateral pitting edema Current Medications: Current Medications Sig/Xochitl Start time Last Medication Dose Route Stop Time Status Admin Acetaminophen 650 MG Q6P PRN 06/22 1745 AC PO Aspirin Buffered 325 MG DAILY 06/23 899 AC 06/28 PO 0803 Atorvastatin Calcium 40 MG 1700 06/23 1700 AC 06/27 PO 1552 Divalproex Sodium 250 MG DAILY 06/23 899 AC 06/28 PO 0803 Enoxaparin Sodium 40 MG DAILY 06/23 899 AC 06/28 SC 0803 Escitalopram Oxalate 20 MG DAILY 06/23 899 AC 06/28 PO 0803 Furosemide 40 MG DAILY 06/28 899 AC 06/28 PO 0803 Metoprolol Tartrate 12.5 MG BID 06/22 2100 AC 06/28 PO 0803 Patient Medication 1 ED ONE ONE 06/27 1845 [facility] ED 06/27 1846 Results Last 48 Hrs of Labs/Mics: Laboratory Tests 06/28/17 0645: Anion Gap 7, Estimated GFR 58 L, BUN/Creatinine Ratio 30.0 H 06/27/17 0704: Anion Gap 10, Estimated GFR 49 L, BUN/Creatinine Ratio 29.3 H, Magnesium 1.9, Vitamin B12 682, Folate > 20.0 H Assessment/Plan Assessment/Plan Assessment: 1. Congestive heart failure 2. Bilateral pleural effusions greater on the right side-stable post thoracentesis 3. History of coronary artery disease, status post stenting 4. 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 Cardiomyopathy with ejection fraction approximately 35% 5. Mitral valve replacement 6. Permanent pacemaker 7. Hypertension 8. Hyperlipidemia 9. History of colon cancer 10. 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 Hallucinations of unclear etiology recommendations: -Patient has been stable and clinically improved. -Continue current medications -MUGA scan confirms ejection fraction of 35-40%. Etiology of this remains unclear. The patient had a postoperative echocardiogram at [place] which showed an ejection fraction of 60% which subsequently deteriorated. Possibilities include : Variant of pacemaker syndrome, underlying atrial fibrillation with resultant cardiomyopathy, etc. -The patient will follow up with me post discharge. -EP evaluation with Dr. Fox as outpatient -If issues persist, consider enrollment in CHF clinic -Follow-up echocardiogram in 6-8 weeks to reassess left ventricular ejection fraction Continue telemetry? No
[2017-09-01] MEDS ORDERED: LEVOTHYROXINE25 MCG PO (09:26)
[2017-09-01] MEDS ORDERED: DAILY MULTIPLE1 EACH PO (09:27)
[2017-09-01] MEDS ORDERED: LORATADINE10 M1 PO (09:27)
== END 2017-06-28 11:55 | DRG 292 ==
LOC: ERH 11:16 → ERHI 15:37 → 1NO 15:37 → ENRESERV 16:30 → ENTRNSPT 17:37 → EDTRNSPT 17:44 → EDTRNSPTSTS 17:44 → 1NO 18:03 → CMPTRNSPT 18:06 → 1NO 06-23 07:49 → ENPENDDIS 06-28 09:57 → ENTRNSPT 06-28 11:50 → 1NO 06-28 11:55 → CMPTRNSPT 06-28 12:05
PROVIDERS: Internal Medicine Interventional Cardiology; Physician Assistant Medical; Student in an Organized Health Care Education/Training Program
PROC: 0W993ZZ Drainage of Right Pleural Cavity, Percutaneous Approach (ICD-10-PCS; principal; 2017-06-23)
DX: I11.0 Hypertensive heart disease with heart failure (principal); R44.3 Hallucinations, unspecified; N17.9 Acute kidney failure, unspecified; J91.8 Pleural effusion in other conditions classified elsewhere; I48.91 Unspecified atrial fibrillation; I25.5 Ischemic cardiomyopathy; I25.10 Atherosclerotic heart disease of native coronary artery without angina pectoris; I50.23 Acute on chronic systolic (congestive) heart failure; F32.9 Major depressive disorder, single episode, unspecified; Z95.0 Presence of cardiac pacemaker; Z98.61 Coronary angioplasty status; Z85.038 Personal history of other malignant neoplasm of large intestine; Z90.49 Acquired absence of other specified parts of digestive tract; D64.9 Anemia, unspecified; Z95.3 Presence of xenogenic heart valve
CPT/HCPCS: 1NSP; 87075; 36415; 36592; 71045; 71046; 81003; 82436; 88305; 93005; 93010; 93306; 96374; 99291; A9512; A9538; J1650; J1940

== ENCOUNTER 2017-06-30 22:07 | Observation (INO) | payer OTHER, MEDICARE ==
[~2017-06-30] VITALS: Ht 162.6 cm; Wt 88.6 kg
[~2017-06-30 22:07] MED LIST changes: +ASPIRIN EC325 M2 PO; +ATORVASTATIN CA40 M1 PO; +LASIX40 M1 PO; +LISINOPRIL2.5 M1 PO; +LISINOPRIL5 M1 PO
--- NOTE | 2017-06-30 22:08 | ED DYSPNEA/ASTHMA COMPLAINT ---
History of Present Illness General Chief Complaint: Dyspnea (COPD, CHF, Other) Stated Complaint: BIBA FOR DIFF BREATHING Source: patient Exam Limitations: no limitations Vital Signs & Intake/Output Vital Signs & Intake/Output Vital Signs Date Time Temp Pulse Resp B/P B/P Pulse O2 O2 Flow FiO2 Mean Ox Delivery Rate 07/01 0056 97.7 80 20 102/58 97 Room Air 06/30 2316 Room Air Room Air 06/30 2209 79 20 122/77 98 Room Air ED Intake and Output 07/01 0000 06/30 1200 Intake Total Output Total 1100 Balance -1100 Output, Urine 1100 Patient 197 lb Weight Weight Reported by Patient Measurement Method Allergies Coded Allergies: No Known Allergies (06/30/17) Reconcile Medications Aspirin (Ecotrin*) 325 MG TABLET.DR 1 TAB PO DAILY HEART (Reported) Atorvastatin Calcium 40 MG TABLET 1 TAB PO 1700 CHOLESTEROL (Reported) Divalproex Sodium 250 MG TABLET.DR 1 TAB PO DAILY MENTAL HEALTH (Reported) Escitalopram Oxalate (Lexapro) 20 MG TABLET 1 TAB PO DAILY MENTAL HEALTH ( Reported) Furosemide (Lasix) 40 MG TABLET 1 TAB PO DAILY FLUID (Reported) Lisinopril 2.5 MG TABLET 1 TAB PO DAILY HTN . Metoprolol Tartrate 25 MG TABLET 0.5 TAB PO BID HEART/BP (Reported) Triage Nurses Notes Reviewed? yes Onset: Gradual Duration: day(s): Timing: recent history Severity: moderate Activities at Onset: none Modifying Factors: Improves With: rest. Associated Symptoms: shortness of breath HPI: 81 yo gentleman h/o chf, pacer, valve replacements presents with dyspnea x 1 day. "I always have a hard time breathing but then today it got worse." No fever, chills, cough, phlegm. He does note that it is worse when lying flat, and he has had increasing swelling of his lower extremities from his baseline. 911 called. 02 sat 88-89% on room air at home. He is otherwise well. Past History Travel History Traveled to [place] past 21 day No Medical History Any Pertinent Medical History? 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 No Review of Systems Review of Systems Constitutional: Reports: no symptoms. EENTM: Reports: no symptoms. Respiratory: Reports: no symptoms. Cardiovascular: Reports: no symptoms. GI: Reports: no symptoms. Genitourinary: Reports: no symptoms. Musculoskeletal: Reports: no symptoms. Skin: Reports: no symptoms. Neurological/Psychological: Reports: no symptoms. Hematologic/Endocrine: Reports: no symptoms. Immunologic/Allergic: Reports: no symptoms. All Other Systems: Reviewed and Negative Physical Exam Physical Exam General Appearance: well developed/nourished, mild distress Head: atraumatic, normal appearance Eyes: Bilateral: normal appearance. Ears, Nose, Throat: normal pharynx, normal ENT inspection Neck: normal inspection, supple, full range of motion Respiratory: rales in lower lobes bilaterally Cardiovascular: regular rate/rhythm Gastrointestinal: normal bowel sounds, soft, non-tender, no organomegaly Extremities: normal inspection, normal capillary refill Neurologic/Psych: no motor/sensory deficits, awake, alert, oriented x 3 Skin: intact, normal color, warm/dry Core Measures ACS in differential dx? No CVA/TIA Diagnosis No Sepsis Present: No Sepsis Focused Exam Completed? No Progress Differential Diagnosis: pneumonia vs chf vs other. Plan of Care: Orders Procedure Date/time Status Place in observation 07/01 011 Active TROPONIN LEVEL 06/30 2208 Complete PARTIAL THROMBOPLASTIN TIME 06/30 2208 Complete PROTHROMBIN TIME 06/30 2208 Complete COMPREHENSIVE METABOLIC PANEL 06/30 2208 Complete CBC WITHOUT DIFFERENTIAL 06/30 2208 Complete B-TYPE NATRIURETIC PEP (BNP) 06/30 2208 Complete EKG 07/01 2207 Active DEPAKOTE LEVEL 06/30 111 Complete Laboratory Tests 06/30/17 2210: Valproic Acid Cancelled 06/30/17 1115: Anion Gap 9, Estimated GFR 49 L, BUN/Creatinine Ratio 28.6 H, Glucose 95, Calcium 8.4, Total Bilirubin 0.9, AST 38, ALT 36, Alkaline Phosphatase 81, Troponin I 0.02, Esz-C-Nichrfpkcyy Pept 97379 H, Total Protein 8.2, Albumin 3.5 , Globulin 4.7 H, Albumin/Globulin Ratio 0.7 L, PT 12.6 H, INR 1.15, APTT 30, CBC w Diff NO MAN DIFF REQ, RBC 3.24 L, MCV 100.4 H, MCH 32.9 H, MCHC 32.8 L , RDW 19.9 H, MPV 9.6, Gran % 56.7, Lymphocytes % 28.4, Monocytes % 11.4 H, Eosinophils % 3.3, Basophils % 0.2, Absolute Granulocytes 3.5, Absolute Lymphocytes 1.8, Absolute Monocytes 0.7 H, Absolute Eosinophils 0.2, Absolute Basophils 0, Valproic Acid < 10.0 L Diagnostic Imaging: Viewed by Me: Radiology Read. Discussed w/RAD: Radiology Read. CXR Impression: PATIENT: ISHAN BLANCA PRESENT AGE: 81 PATIENT ACCOUNT NO: [id number] : 34 LOCATION: [facility] ORDERING PHYSICIAN: Mal Camp MD SERVICE DATE: 06/30/17 EXAM TYPE: RAD - XRY- PORTABLE CHEST XRAY EXAMINATION: XR PORTABLE CHEST CLINICAL INFORMATION: Dyspnea. COMPARISON: Chest x-ray 06/24/2017 TECHNIQUE: Portable frontal view of the chest was obtained. 10:17 PM FINDINGS: Lung volume is low. This causes crowding of the bronchovascular markings. There is density at both lung bases greater on the right than left. There is persistent pleural thickening/pleural effusion blunting the right lateral costophrenic angle similar to the chest x- ray of 06/24/2017. This haziness also at the left lung base probable left pleural effusion and/or basilar atelectasis. The heart size is enlarged. Status post cardiac valve repair. Status post median sternotomy. There are vascular wall calcifications of aorta IMPRESSION: Low lung volume. Persistent bibasilar density from pleural effusion and/or pleural thickening with basilar atelectasis at lung bases DICTATED BY: Kaiser Liu MD DATE/TIME DICTATED:06/30/172307 MOTOCROSS RACER:HOLLIE DATE/TIME TRANSCRIBED:06/30/172307 CONFIDENTIAL, DO NOT COPY WITHOUT APPROPRIATE AUTHORIZATION. <Electronically signed in Other Vendor System> SIGNED BY: Kaiser Liu MD 06/30/17 1938 Initial ED EKG: paced Departure Departure Disposition: STILL A PATIENT Condition: Stable Clinical Impression Primary Impression: CHF (congestive heart failure) Secondary Impressions: Pleural effusion Referrals: Jenny Wilson MD (PCP/Family) Departure Forms: Customer Survey General Discharge Information Observation Note Spoke With: Jarocho Dillard MD Patient In: Non-ED OBS Care Area Rationale for Observation: My rational for observation is as follows . pt with chf, pleural effusion, now hypoxic at home to 88-90%, corrects to 97% on 6 l nasal cannula, also with significant pleural effusion... pt merits iv lasix, consider tapping effusion. call placed to case management. Critical Care Note Critical Care Note Critical Care Time: non-applicable
--- NOTE | 2017-06-30 23:15 | RADIOLOGY REPORT ---
EXAMINATION: XR PORTABLE CHEST CLINICAL INFORMATION: Dyspnea. COMPARISON: Chest x-ray 06/24/2017 TECHNIQUE: Portable frontal view of the chest was obtained. 10:17 PM FINDINGS: Lung volume is low. This causes crowding of the bronchovascular markings. There is density at both lung bases greater on the right than left. There is persistent pleural thickening/pleural effusion blunting the right lateral costophrenic angle similar to the chest x-ray of 06/24/2017. This haziness also at the left lung base probable left pleural effusion and/or basilar atelectasis. The heart size is enlarged. Status post cardiac valve repair. Status post median sternotomy. There are vascular wall calcifications of aorta IMPRESSION: Low lung volume. Persistent bibasilar density from pleural effusion and/or pleural thickening with basilar atelectasis at lung bases
[2017-06-30 23:26] LABS: ABSOLUTE BASOPHIL COUNT 0 /CUMM (0.0-0.2); ABSOLUTE EOSINOPHIL COUNT 0.2 /CUMM (0.0-0.7); ABSOLUTE GRANULOCYTE CT 3.5 /CUMM (1.4-6.5); ABSOLUTE LYMPH COUNT 1.8 /CUMM (1.2-3.4); ABSOLUTE MONOCYTE COUNT 0.7 /CUMM (0.10-0.60); BASOPHIL % 0.2 % (0.0-2.0); EOSINOPHIL % 3.3 % (0-5); GRANULOCYTE % 56.7 % (42.2-75.2); HEMATOCRIT 32.6 % (42-52); MEAN CORPUSCULAR HGB 32.9 PG (27.0-31.0); MEAN CORPUSCULAR HGB CONC 32.8 G/DL (33.0-37.0); MEAN CORPUSCULAR VOLUME 100.4 FL (80.0-94.0); MEAN PLATELET VOLUME 9.6 FL (7.4-10.4); RBC DISTRIBUTION WIDTH 19.9 % (11.5-14.5); RED BLOOD CELL CT 3.24 /CUMM (4.70-6.10); WHITE BLOOD CELL COUNT 6.2 /CUMM (4.8-10.8)
[2017-06-30 23:33] LABS: PLATELET COUNT 84 /CUMM (130-400)
[2017-06-30 23:35] LABS: PT 12.6 SEC (9.4-12.5); PTT 30 SEC (25-37)
--- NOTE | 2017-07-01 01:47 | History & Physical ---
Julian Pollack 07/01/17 0145: General Information and HPI History of Present Illness: Mr. 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 Patient reports since discharge he has been having progressively worsening SOB. He reports the day after being discharged from the hospital he tried breathing exercises to help with his SOB without relief. He found himself having to walk slower than usual due to exertional SOB. He has had orthopnea. For the past few days he has also felt bloated and lightheaded. He has noticed an increase in his lower extremity edema and frequent urination. During his previous discharge his lisinopril was decreased from 5 mg to 2.5 mg due to poor renal function. He reports medication compliance. At baseline he walks with a cane. He denies fever, chills, CP, palpitations, nausea, vomiting or bowel symptoms. In the ED labs were significant for an elevated BNP that has trended down since previous admission, WAYNE and thrombocytopenia. He was given IV furosemide 80 mg. Allergies/Medications Allergies: Coded Allergies: No Known Allergies (06/30/17) Home Med list Aspirin (Ecotrin*) 325 MG TABLET.DR 1 TAB PO DAILY HEART (Reported) Atorvastatin Calcium 40 MG TABLET 1 TAB PO 1700 CHOLESTEROL (Reported) Divalproex Sodium 250 MG TABLET.DR 1 TAB PO DAILY MENTAL HEALTH (Reported) Escitalopram Oxalate (Lexapro) 20 MG TABLET 1 TAB PO DAILY MENTAL HEALTH ( Reported) Furosemide (Lasix) 40 MG TABLET 1 TAB PO DAILY FLUID (Reported) Lisinopril 2.5 MG TABLET 1 TAB PO DAILY HTN . 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 Exam & Diagnostic Data Last 24 Hrs of Vital Signs/I&O Vital Signs Date Time Temp Pulse Resp B/P B/P Pulse O2 O2 Flow FiO2 Mean Ox Delivery Rate 07/01 0056 97.7 80 20 102/58 97 Room Air 06/30 2316 Room Air Room Air 06/30 2209 79 20 122/77 98 Room Air Intake & Output 07/01 0800 07/01 0000 06/30 1600 Intake Total Output Total 1100 Balance -1100 Output, Urine 1100 Patient 197 lb Weight Weight Reported by Patient Measurement Method Last 24 Hrs of Labs/Yoan: Laboratory Tests 06/30/17 2210: Valproic Acid Cancelled 06/30/17 1115: Anion Gap 9, Estimated GFR 49 L, BUN/Creatinine Ratio 28.6 H, Glucose 95, Calcium 8.4, Total Bilirubin 0.9, AST 38, ALT 36, Alkaline Phosphatase 81, Troponin I 0.02, Tcz-I-Gpilrytwthh Pept 81431 H, Total Protein 8.2, Albumin 3.5 , Globulin 4.7 H, Albumin/Globulin Ratio 0.7 L, PT 12.6 H, INR 1.15, APTT 30, CBC w Diff NO MAN DIFF REQ, RBC 3.24 L, MCV 100.4 H, MCH 32.9 H, MCHC 32.8 L , RDW 19.9 H, MPV 9.6, Gran % 56.7, Lymphocytes % 28.4, Monocytes % 11.4 H, Eosinophils % 3.3, Basophils % 0.2, Absolute Granulocytes 3.5, Absolute Lymphocytes 1.8, Absolute Monocytes 0.7 H, Absolute Eosinophils 0.2, Absolute Basophils 0, Valproic Acid < 10.0 L Diagnostic Data CXR Results FINDINGS: Lung volume is low. This causes crowding of the bronchovascular markings. There is density at both lung bases greater on the right than left. There is persistent pleural thickening/pleural effusion blunting the right lateral costophrenic angle similar to the chest x-ray of 06/24/2017. This haziness also at the left lung base probable left pleural effusion and/or basilar atelectasis. The heart size is enlarged. Status post cardiac valve repair. Status post median sternotomy. There are vascular wall calcifications of aorta IMPRESSION: Low lung volume. Persistent bibasilar density from pleural effusion and/or pleural thickening with basilar atelectasis at lung bases Assessment/Plan Assessment: Mr. Townsend is a 81-year-old male with an extensive PMH with a recent recent admission (06/22/17-06/28/17) for acute CHF exacerbation and an ECHO (05/2017) that showed a worsening EF of 25-30% (previous at [facility] 60%) and pulmonary hypertension. Problem list: Acute on chronic CHF WAYNE (baseline 1.0) - ? Cardiorenal vs medication induced History of Thrombocytopenia (01/2017) - ?medication induced due to Divalproex Plan: * Place on telemetry OBS for further management and monitoring * Strict I&Os, daily weights * Serial Trop/ECG to rule out ACS * Monitor platelets * Resume home meds including atorvastatin 40 mg, furosemide 40 mg, metoprolol 12.5 mg * Resume ASA 325 because of patient's extensive cardiac history benefits outweighs the risk of bleeding * Hold lisinopril 2.5 mg for WAYNE * Consider holding ASA 325 for thrombocytopenia if platelets less than 30,000 * IV Furosemide 20 mg BID * PA/Lateral CXR in a.m. for pleural effusion * Consider MUGA scan to better assess LV function * Cardio consult in a.m. DVT ppx: ALPS only Diet: Heart healthy, Na restriction Code: FULL As Ranked By This Provider Problem List: 1. CHF exacerbation Core Measures/Misc (11/13) Acute Coronary Syndrome ACS Diagnosis: No Congestive Heart Failure Congestive Heart Failure Diagnosis No Cerebrovascular Accident CVA/TIA Diagnosis: No VTE (View Protocol) VTE Risk Factors Age>40 No Mechanical VTE Prophylaxis d/t N/A MechProphylax Ordered No VTE Pharm Prophylaxis d/t Platelets below ref range Sepsis (View protocol) Sepsis Present: No Sea Hong MD 07/01/17 0325: Resident Review Statement Resident Statement: examined this patient, discussed with consultant internship, agreed with consultant internship Other Findings: This is an 81-year-old male with past medical history notable for CAD, HTN, AVR, recent 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 Notably patient was discharged for same complaint 2 days ago. During previous hospitalization he was found to have HFrEF with pleural effusion and diuresed aggressively w/ a right-sided thoracentesis performed by IR. Fluid was transudative and consistent with CHF. His lisinopril was decreased to 2.5 during last admission due to renal insufficiency. Patient states that since discharge he has felt somewhat short of breath. However, the sensation worsened despite trying the breathing exercises and medications. Gradually he started waking up in the middle of his sleep gasping for air several times a night. By the second day he felt like his symptoms were too difficult to control and called the ambulance. THey found him satting 88-89% on RA and transitioned him to 6L with sats up in high 90s. He states that he has been compliant with prescribed medication regimen. Denies nausea, vomiting, chest pain, palpitations, abdominal pain, diarrhea, Vitals: 97.4, 80, 20, 122/77, 95. HEENT: Pupils equal and reactive. EOMI Cardiovascular: Nml s1/s2; + systolic murmur Skin: no erythema, rash or wounds present. Respiratory:fine bibasilar cracles GI: BSX4, No tenderness on palpation. EXT: No skin changes in bilat LE. 2 + bilat LE edema Labs: Hemoglobin 10.7, hematocrit 32.6, platelet 84. MCV 100.4. PT 12.6. BUN 40, creatinine 1.4. Normal plantar function. Negative troponin. BNP 15,300. Chest x-ray: Shows decreased lung volumes with persistent bibasilar density from pleural effusion and questionable pleural thickening with basilar atelectasis. 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 When EMS evaluated patient at home he was found to be satting between 80-89%. Given hypoxia he was admitted for further workup and management. 1. Hypoxia: Chest x-ray shows low lung volumes and persistent bibasilar density and pleural effusion. His echo from 06/22/2017 shows an ejection fraction of 30% with abnormal septal motion and an RVSP of 40. His BNP is 15,300 which is actually improved from his previous admission BNP of 18,000. Given patient endorsing worsening lower extremity edema, orthopnea and persistence of pleural effusion, there is concern that this is again an exacerbation of his heart failure. Seems like some of the fluid is back. He does not have obvious signs of infection at this time. * Hold off abx * IV diuresis * Continue ASA * Continue Atorvastatin * Continue metoprolol * Consider starting in Entresto after renal injury resolved * Appreicate Cardiology consult * ?Surgical consult for placement of drainage catheter WAYNE: Patient has creatinine 1.4 today. In his previous admission he came in with creatinine 1.0 and his creatinine trended up to 1.5 and on discharge was 1.2. Likely secondary to prerenal state due to aggressive IV diuresis. * Monitor I's and O's * Urine lytes * Hold lisinopril * Avoid nephrotoxins Anemia: Patient is here low at 10.7 today. Previously was 11 low of 7.7. His previous iron studies suggest anemia of chronic disease. B12 and folate WNL * Monitor CBC Thrombocytopenia: Pt has platelet 84. In May 2017 patient had platelet around 100. Unsure of etiology but could be secondary to medications such as divalproex. * Con't monitor * Off anticoagulants * Note we continued ASA given his prosthetic valve, hx of CAD etc, but consider holding it if his platelets continue to drop Depression: * Continue Lexapro * Continue divalproex * Continue to monitor Jarocho Dillard 07/01/17 0506: Attending MD Review Statement Attending Statement Attending MD Statement: examined this patient, discuss w/resident/PA/HUMAN RESOURCES SUPPORT SPECIALIST, agreed w/resident/PA/HUMAN RESOURCES SUPPORT SPECIALIST, reviewed EMR data (avail), reviewed images, amended to note Attending Assessment/Plan: CC: Shortness of breath PMH: Chronic anemia, colon cancer S/P colectomy, depression, HTN, BPH, CAD S/P HI, stent, history of AVR, Strep bacteremia complicated by aortic root abscess in December 2016, S/P revision surgery for Aortic valve, mitral valve replacement, S/p permanent pacemaker, recurrent right-sided pleural effusion, ischemic cardiomyopathy with HFrEF Patient was discharged on June 28 after treatment of Heart failure and recurrent pleural effusion. After discharge, patient noticed progressive worsening of shortness of breath, even after taking all the medications as suggested. Shortness of breath is associated with chest tightness and congestion, orthopnea , increasing leg swelling, mild lightheadedness. He denies any chest pain, palpitation, pleuritic nature of pain, cough, expectoration, fever, chills, nausea, vomiting or abdominal pain. He had diarrhea at home after discharge but he took [id number] medication with relief. Vitals: Temperature 97.7, pulse 79, RR 20, blood pressure 122/77, saturating 98% on room air On exam: A O 3, cooperative, no acute distress, neck supple, JVD difficult to assess, no lymphadenopathy, mucosa moist, no focal neurological deficit, bilateral lower extremity +2 edema, no obvious skin rashes or inflammation CVS: S1-S2, RRR, systolic murmur. RS: Decreased air entry right base, crackles on left base. Abdomen: Soft, NT, ND, bowel sounds present. Portable chest x-ray: Low lung volume. Persistent bibasilar density from pleural effusion and/or pleural thickening with basilar atelectasis at lung bases Assessment and plan 81-year-old male with extensive past medical history as mentioned above, was discharged on June 28, was admitted from June 22 for acute on chronic heart failure and recurrent right-sided pleural effusion. Patient underwent thoracentesis on 06/23/2017, 1100 mL of transudative fluid was removed with symptomatic improvement. It was considered secondary to heart failure and patient was aggressively diuresed. Patient was transiently hypotensive during that admission and had mild acute kidney injury, dose of IV Lasix was decreased and then eventually changed to by mouth and patient was discharged to be followed up outpatient. After discharge patient noticed progressive worsening of shortness of breath, orthopnea, dizziness, leg swelling, chest tightness so he came back to ER through EMS. Initially in short he was started on 6 L nasal cannula as he was saturating 89-90% on room air, this improved after IV Lasix and currently patient on room air. JVD is difficult to assess but he has crackles on left base and markedly decreased air entry on the right base, chest x-ray suggestive of persistent bibasilar densities secondary to pleural effusion , I personally reviewed the x-rays and it appears that he may have mild worsening of bilateral pleural effusion. We'll obtain chest x-ray PA and lateral in the morning for better assessment, continue IV diuresis for acute on chronic heart failure. Patient does not have any cough, expectoration, leukocytosis, fever or chills and less likely pneumonia. 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 - Continue aspirin for now : Reevaluate if significant drop in platelet - No Lovenox or heparin : thrombocytopenia - Chest x-ray PA and lateral in morning : He worsening of pleural effusion then patient may require further therapeutic thoracentesis
[2017-07-01 03:59] VITALS: BP 108/60
[2017-07-01 07:05] VITALS: BP 138/88
[2017-07-01 07:35] VITALS: BP 148/90
--- NOTE | 2017-07-01 08:28 | PN- Housestaff ---
See Addendum Subjective Follow-up For: CHF dyspnea Tele-Events Since Last Visit: sinus rhythm, no events Subjective: patient was dyspneic at home despite lasix, good urine output and sitting upright Review of Systems Constitutional: Reports: see HPI. Objective Last 24 Hrs of Vital Signs/I&O Vital Signs Date Time Temp Pulse Resp B/P B/P Pulse O2 O2 Flow FiO2 Mean Ox Delivery Rate 07/01 0800 Room Air 07/01 0738 83 148/90 07/01 0735 83 148/90 07/01 0705 97.4 86 20 138/88 93 Room Air 07/01 0359 Room Air 07/01 0359 97.6 80 16 108/60 94 Room Air 07/01 0156 97.5 80 20 121/80 95 Room Air 07/01 0056 97.7 80 20 102/58 97 Room Air 06/30 2316 Room Air Room Air 06/30 2209 79 20 122/77 98 Room Air Intake & Output 07/01 1600 07/01 0800 07/01 0000 Intake Total 120 Output Total 400 1900 Balance -280 -1900 Intake, Oral 120 Output, Urine 400 1900 Patient 89.358 kg 89.358 kg Weight Weight Bed scale Reported by Patient Measurement Method Physical Exam General Appearance: Alert, Oriented X3, Cooperative, No Acute Distress Cardiovascular: Regular Rate, Normal S1, Normal S2, No Murmurs Lungs: right base crackles Abdomen: Normal Bowel Sounds, Soft, No Tenderness, No Masses Extremities: No Clubbing, No Cyanosis, Normal Pulses, b/l lower extremity edema Current Medications: Current Medications Sig/Xochitl Start time Last Medication Dose Route Stop Time Status Admin Acetaminophen 650 MG Q6P PRN 07/01 033 AC 07/01 PO 0632 Acetaminophen 1,000 MG Q6P PRN 07/01 0330 AC IV Aspirin 81 MG DAILY 07/01 899 AC 07/01 PO 0737 Atorvastatin Calcium 40 MG 1700 07/01 1700 AC PO Divalproex Sodium 250 MG DAILY 07/01 899 AC 07/01 PO 0737 Escitalopram Oxalate 20 MG DAILY 07/01 899 AC 07/01 PO 0738 Furosemide 20 MG 7:30 AM, & 4:30 PM 07/01 0730 AC 07/01 IV 0737 Furosemide 0 .STK-MED ONE 07/01 2235 DC IV Furosemide 80 MG ONCE ONE 06/30 2214 DC 06/30 IV 06/30 Metoprolol Tartrate 12.5 MG BID 07/01 0900 AC 07/01 PO 0738 Last 24 Hrs of Lab/Yoan Results Last 24 Hrs of Labs/Mics: Laboratory Tests 07/01/17 0708: Anion Gap 11, Estimated GFR 45 L, BUN/Creatinine Ratio 23.3, Troponin I 0.02, CBC w Diff NO MAN DIFF REQ, RBC 3.25 L, MCV 100.1 H, MCH 33.0 H, MCHC 32.9 L , RDW 20.0 H, MPV 10.2, Gran % 54.4, Lymphocytes % 29.7, Monocytes % 12.8 H, Eosinophils % 2.5, Basophils % 0.6, Absolute Granulocytes 3.5, Absolute Lymphocytes 1.9, Absolute Monocytes 0.8 H, Absolute Eosinophils 0.2, Absolute Basophils 0 06/30/172209: Valproic Acid Cancelled 06/30/17 1115: Anion Gap 9, Estimated GFR 49 L, BUN/Creatinine Ratio 28.6 H, Glucose 95, Calcium 8.4, Total Bilirubin 0.9, AST 38, ALT 36, Alkaline Phosphatase 81, Troponin I 0.02, Cft-P-Yyhdauerzhl Pept 10758 H, Total Protein 8.2, Albumin 3.5 , Globulin 4.7 H, Albumin/Globulin Ratio 0.7 L, PT 12.6 H, INR 1.15, APTT 30, CBC w Diff NO MAN DIFF REQ, RBC 3.24 L, MCV 100.4 H, MCH 32.9 H, MCHC 32.8 L , RDW 19.9 H, MPV 9.6, Gran % 56.7, Lymphocytes % 28.4, Monocytes % 11.4 H, Eosinophils % 3.3, Basophils % 0.2, Absolute Granulocytes 3.5, Absolute Lymphocytes 1.8, Absolute Monocytes 0.7 H, Absolute Eosinophils 0.2, Absolute Basophils 0, Valproic Acid < 10.0 L Assessment/Plan Assessment: 81 year old male with PMH significant for colon cancer s/p colectomy, CAD, pacemaker, HTN, AVR, chronic anemia, recent prosthetic valve 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 and completion of 6 weeks of antibiotics, small embolic cerebellar strokes and recent pleural effusion s/p thoracentesis at [facility], admitted with shortness of breath and dyspnea on exertion with bilateral pleural effusions. Bilateral pleural effusion s/p thoracentesis on previous admission bibasilar consolidation on chest x-ray Check PA and lateral chest x-ray Dyspnea on exertion: Secondary to HFrEF On 20mg IV lasix BID Check I/Os, daily weights Follow up cardiology recommendations Creatinine elevated to 1.5 from 1.4 yesterday with diuretics Acute kidney injury - creatinine elevated to 1.5, 1.2 on prior discharge Reduced frequency of diuretics back to home dose of 40mg daily Trend renal function Lisinopril on hold Ischemic cardiomyopathy with EF of about 30% 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 CHF (congestive heart failure) 2. Acute kidney failure 3. Pleural effusion Pain Ratin Pain Location: n/a Pain Goal: Pain 4 or less Pain Plan: prn Tomorrow's Labs & Rationales: bep
[2017-07-01 08:35] LABS: ABSOLUTE BASOPHIL COUNT 0 /CUMM (0.0-0.2); ABSOLUTE EOSINOPHIL COUNT 0.2 /CUMM (0.0-0.7); ABSOLUTE GRANULOCYTE CT 3.5 /CUMM (1.4-6.5); ABSOLUTE LYMPH COUNT 1.9 /CUMM (1.2-3.4); ABSOLUTE MONOCYTE COUNT 0.8 /CUMM (0.10-0.60); BASOPHIL % 0.6 % (0.0-2.0); EOSINOPHIL % 2.5 % (0-5); GRANULOCYTE % 54.4 % (42.2-75.2); HEMATOCRIT 32.5 % (42-52); MEAN CORPUSCULAR HGB CONC 32.9 G/DL (33.0-37.0); MEAN CORPUSCULAR VOLUME 100.1 FL (80.0-94.0); MEAN PLATELET VOLUME 10.2 FL (7.4-10.4); PLATELET COUNT 98 /CUMM (130-400); RED BLOOD CELL CT 3.25 /CUMM (4.70-6.10); WHITE BLOOD CELL COUNT 6.4 /CUMM (4.8-10.8)
--- NOTE | 2017-07-01 10:35 | Cons- Cardiology ---
See Addendum General Information and HPI Consulting Request Date of Consult: 07/01/17 Requested By: Jarocho Dillard MD Reason for Consult: CHF History of Present Illness: Patient readmitted 2 days after discharge, due to recurrence of dyspnea. Mr Townsend had been hospitalized for CHF and bilateral pleural effusions in may 2017, following a long rehabilitation program post op of aortic and mitral valve repair, aortic root abcess drainage. Known ischemic cardiomyopathy with LVEF 30%. During his last hospitalization, the pleural effusions were refractory to diuretics, and thoracentesis was finally performed. Pleural effusions have increased on readmission CXR and BNP is elevated. Mr Townsend denies chest pains , palpitations, fever. Allergies/Medications Allergies: Coded Allergies: No Known Allergies (06/30/17) Home Med List: Aspirin (Ecotrin*) 325 MG TABLET.DR 1 TAB PO DAILY HEART (Reported) Atorvastatin Calcium 40 MG TABLET 1 TAB PO 1700 CHOLESTEROL (Reported) Divalproex Sodium 250 MG TABLET.DR 1 TAB PO DAILY MENTAL HEALTH (Reported) Escitalopram Oxalate (Lexapro) 20 MG TABLET 1 TAB PO DAILY MENTAL HEALTH ( Reported) Furosemide (Lasix) 40 MG TABLET 1 TAB PO DAILY FLUID (Reported) Lisinopril 2.5 MG TABLET 1 TAB PO DAILY HTN . Metoprolol Tartrate 25 MG TABLET 0.5 TAB PO BID HEART/BP (Reported) Current Medications: Current Medications Sig/Xochitl Start time Last Medication Dose Route Stop Time Status Admin Acetaminophen 650 MG Q6P PRN 07/01 0330 AC 07/01 PO 0632 Acetaminophen 1,000 MG Q6P PRN 07/01 0330 AC IV Aspirin 81 MG DAILY 07/01 09 AC 07/01 PO 0737 Atorvastatin Calcium 40 MG 1700 07/01 1700 AC PO Divalproex Sodium 250 MG DAILY 07/01 899 AC 07/01 PO 0737 Escitalopram Oxalate 20 MG DAILY 07/01 899 AC 07/01 PO 0738 Furosemide 20 MG 7:30 AM, & 4:30 PM 07/01 07 AC 07/01 IV 0737 Furosemide 0 .STK-MED ONE 07/01 2235 DC IV Furosemide 80 MG ONCE ONE 06/30 2214 DC 06/30 IV 06/30 Metoprolol Tartrate 12.5 MG BID 07/01 899 AC 07/01 PO 0738 Review of Systems Review of Systems: see HPI Past History Travel History Traveled to [place] past 21 day No Medical History Neurological: NONE EENT: NONE Cardiovascular: CAD (s/p stent), CHF, hypertension, hyperlipidemia, PACEMAKER Respiratory: NONE Gastrointestinal: colon cancer Hepatic: NONE Renal: NONE Musculoskeletal: NONE Psychiatric: depression Endocrine: NONE Blood Disorders: anemia Cancer(s): colon/rectal cancer D[employer]OCK [employer] W[employer] HANDS/Reproductive: NONE Surgical History Surgical History: colon resection, s/p aortic valve replacement Psychosocial History Services at Home: None Smoking Status: Former Smoker ETOH Use: denies use Illicit Drug Use: denies illicit drug use Exam & Diagnostic Data Vital Signs and I&O Vital Signs Date Time Temp Pulse Resp B/P B/P Pulse O2 O2 Flow FiO2 Mean Ox Delivery Rate 07/01 08 Room Air 07/01 0738 83 148/90 07/01 0735 83 148/90 07/01 0705 97.4 86 20 138/88 93 Room Air 07/01 0359 Room Air 07/01 0359 97.6 80 16 108/60 94 Room Air 07/01 0156 97.5 80 20 121/80 95 Room Air 07/01 0056 97.7 80 20 102/58 97 Room Air 06/30 2316 Room Air Room Air 06/30 2209 79 20 122/77 98 Room Air Intake & Output 07/01 1600 07/01 0807/01 0000 06/30 1600 06/30 0800 06/30 0000 Intake Total 120 Output Total 400 1900 Balance -280 -1900 Intake, Oral 120 Output, Urine 400 1900 Patient 197 lb 197 lb Weight Weight Bed scale Reported by Patient Measurement Method Physical Exam: General Appearance: Alert, Oriented X3, Cooperative, No Acute Distress, lying at 15 degrees on his bed. Cardiovascular: Regular Rate, Normal S1, Normal S2, No Murmurs Lungs: right base crackles, reduced air entry bilateral bases R>L Abdomen: Normal Bowel Sounds, Soft, No Tenderness, No Masses Extremities: 2+ lower extremity edema, good capillary refill Labs/Yoan Results: Laboratory Tests 07/01 06/30 0708 2210 Chemistry Sodium (137 - 145 mmol/L) 139 Potassium (3.5 - 5.1 mmol/L) 4.1 Chloride (98 - 107 mmol/L) 98 Carbon Dioxide (22 - 30 mmol/L) 30 Anion Gap (5 - 16) 11 BUN (9 - 20 mg/dL) 35 H Creatinine (0.7 - 1.2 mg/dL) 1.5 H Estimated GFR (>60 ml/min) 45 L BUN/Creatinine Ratio (7 - 25 %) 23.3 Troponin I (<0.11 ng/ml) 0.02 Hematology CBC w Diff NO MAN DIFF REQ WBC (4.8 - 10.8 /CUMM) 6.4 RBC (4.70 - 6.10 /CUMM) 3.25 L Hgb (14.0 - 18.0 G/DL) 10.7 L Hct (42 - 52 %) 32.5 L MCV (80.0 - 94.0 FL) 100.1 H MCH (27.0 - 31.0 PG) 33.0 H MCHC (33.0 - 37.0 G/DL) 32.9 L RDW (11.5 - 14.5 %) 20.0 H Plt Count (130 - 400 /CUMM) 98 L MPV (7.4 - 10.4 FL) 10.2 Gran % (42.2 - 75.2 %) 54.4 Lymphocytes % (20.5 - 51.1 %) 29.7 Monocytes % (1.7 - 9.3 %) 12.8 H Eosinophils % (0 - 5 %) 2.5 Basophils % (0.0 - 2.0 %) 0.6 Absolute Granulocytes (1.4 - 6.5 /CUMM) 3.5 Absolute Lymphocytes (1.2 - 3.4 /CUMM) 1.9 Absolute Monocytes (0.10 - 0.60 /CUMM) 0.8 H Absolute Eosinophils (0.0 - 0.7 /CUMM) 0.2 Absolute Basophils (0.0 - 0.2 /CUMM) 0 Toxicology Valproic Acid Cancelled 06/30 1115 Chemistry Sodium (137 - 145 mmol/L) 138 Potassium (3.5 - 5.1 mmol/L) 5.1 Chloride (98 - 107 mmol/L) 100 Carbon Dioxide (22 - 30 mmol/L) 30 Anion Gap (5 - 16) 9 BUN (9 - 20 mg/dL) 40 H Creatinine (0.7 - 1.2 mg/dL) 1.4 H Estimated GFR (>60 ml/min) 49 L BUN/Creatinine Ratio (7 - 25 %) 28.6 H Glucose (65 - 99 mg/dL) 95 Calcium (8.4 - 10.2 mg/dL) 8.4 Total Bilirubin (0.2 - 1.3 mg/dL) 0.9 AST (17 - 59 U/L) 38 ALT (21 - 72 U/L) 36 Alkaline Phosphatase (< 127 U/L) 81 Troponin I (<0.11 ng/ml) 0.02 [id number]-[id number] Pept (<125 pg/mL) 32404 H Total Protein (6.3 - 8.2 g/dL) 8.2 Albumin (3.5 - 5.0 g/dL) 3.5 Globulin (1.9 - 4.2 gm/dL) 4.7 H Albumin/Globulin Ratio (1.1 - 2.2 %) 0.7 L Coagulation PT (9.4 - 12.5 SEC) 12.6 H INR (0.90 - 1.17) 1.15 APTT (25 - 37 SEC) 30 Hematology CBC w Diff NO MAN DIFF REQ WBC (4.8 - 10.8 /CUMM) 6.2 RBC (4.70 - 6.10 /CUMM) 3.24 L Hgb (14.0 - 18.0 G/DL) 10.7 L Hct (42 - 52 %) 32.6 L MCV (80.0 - 94.0 FL) 100.4 H MCH (27.0 - 31.0 PG) 32.9 H MCHC (33.0 - 37.0 G/DL) 32.8 L RDW (11.5 - 14.5 %) 19.9 H Plt Count (130 - 400 /CUMM) 84 L MPV (7.4 - 10.4 FL) 9.6 Gran % (42.2 - 75.2 %) 56.7 Lymphocytes % (20.5 - 51.1 %) 28.4 Monocytes % (1.7 - 9.3 %) 11.4 H Eosinophils % (0 - 5 %) 3.3 Basophils % (0.0 - 2.0 %) 0.2 Absolute Granulocytes (1.4 - 6.5 /CUMM) 3.5 Absolute Lymphocytes (1.2 - 3.4 /CUMM) 1.8 Absolute Monocytes (0.10 - 0.60 /CUMM) 0.7 H Absolute Eosinophils (0.0 - 0.7 /CUMM) 0.2 Absolute Basophils (0.0 - 0.2 /CUMM) 0 Toxicology Valproic Acid (50 - 120 ug/mL) < 10.0 L Assessment/Plan Assessment/Plan CHF in patient with reduce LVEF and ischemic cardiomyopathy as well as recent redo surgery for aortic and mitral valve bioprosthesis repair due to endocarditis as well as aortic root abcess resection followed 2 months IV antibiotics. Pleural effusion has also increased since his recent discharge. WAYNE. I would increase lasix to 40 mg IV bid for the moment, with renal function monitoring, aiming for a negative fluid balance 1-2L/24hr. Repeat BNP in 2 days (monday). tolerating creatinine ~ 1.4-1.6. Stop lisinopril entirely until creatinine <1.3. Repeat CXR monday. If pleural effusion does not improve with diuresis, may have to consider repeat thoracentesis +/- leave drain in place... Consult Acknowledgment - Thank you for your consult request.
--- NOTE | 2017-07-01 11:23 | RADIOLOGY REPORT ---
EXAMINATION: XR CHEST CLINICAL INFORMATION: Shortness of breath. Pleural effusions. Rule out acute pathology. COMPARISON: Multiple prior chest x-rays, most recent of which is dated 06/30/2017. TECHNIQUE: 2 views of the chest were obtained on 4 images. FINDINGS: The patient is status post median sternotomy and aortic valve and mitral valve replacement. Epicardiac pacer leads are seen in place. The cardiomediastinal silhouette is markedly enlarged, unchanged compared to the prior studies. Calcification and ectasia of the aorta are noted. Low lung volumes are seen with the lower lungs bilaterally are obscured by patchy parenchymal opacities and associated pleural effusions, small on the left side and moderate sized on the right side. When compared to the prior exam, findings are stable. Azygos lobe variant in the right medial apex again seen. Central vascular congestion is seen without overt pulmonary edema. Diffuse osteopenia and mild dorsal kyphosis noted bone detail limited due to degree of osteopenia and film technique. IMPRESSION: 1. No significant change in small left and moderate right pleural effusion and associated bibasilar opacities, possibly due to atelectasis or pneumonia. 2. Cardiomegaly, aortic ectasia/calcification, and central vascular congestion again noted.
[2017-07-01 14:33] VITALS: BP 116/60
[2017-07-01 22:37] VITALS: BP 112/58
[2017-07-02 06:43] VITALS: BP 114/84
[2017-07-02 07:19] VITALS: BP 120/80
--- NOTE | 2017-07-02 09:03 | PN- Housestaff ---
Alisha SORIA,Pierre 07/[birth year]/17902: Subjective Follow-up For: CHF Dyspnea Tele-Events Since Last Visit: Sinus rhythm with HR 70s80s Subjective: Patient was seen and examined at bedside. He is resting comfortably. He had no acute events overnight. He is ambulating and reports having improvement in his dyspnea. He expresses some frustration with being back in the hospital, however seems to be doing well overall, and states that he feels better than yesterday. The chest pain he reportedly fell yesterday has now completely resolved, he is endorsing mild shortness of breath on exertion. He denies any palpitations, fever, chills, nausea, vomiting. Review of Systems Constitutional: Reports: see HPI. Objective Last 24 Hrs of Vital Signs/I&O Vital Signs Date Time Temp Pulse Resp B/P B/P Pulse O2 O2 Flow FiO2 Mean Ox Delivery Rate 07/02 721 80 120/80 / 0719 80 120/80 / 0643 97.8 80 20 114/84 94 Room Air 07/01 2344 Room Air 07/01 2237 97.7 81 18 112/58 95 Room Air 05/ 2041 50 80/50 05/05 1433 97.9 80 18 116/60 92 Room Air Intake & Output 07/02 1600 / 0800 07/02 0000 Intake Total 120 414 Output Total 450 775 Balance -330 -361 Intake, IV 14 Intake, Oral 120 400 Output, Urine 450 775 Physical Exam General Appearance: Alert, Oriented X3, Cooperative Cardiovascular: Regular Rate, Normal S1, Normal S2 Lungs: diminished breath sounds at the bases Abdomen: Normal Bowel Sounds, Soft, No Tenderness Extremities: 1+ distal LE edema Current Medications: Current Medications Sig/Xochitl Start time Last Medication Dose Route Stop Time Status Admin Acetaminophen 650 MG Q6P PRN 07/01 0330 AC 07/01 PO 0632 Acetaminophen 1,000 MG Q6P PRN 07/01 0330 AC IV Aspirin 81 MG DAILY 07/01 09 AC 07/02 PO 0722 Atorvastatin Calcium 40 MG 1700 07/01 1700 AC 07/01 PO 1727 Divalproex Sodium 250 MG DAILY 07/01 899 AC 07/02 PO 0722 Escitalopram Oxalate 20 MG DAILY 07/01 09 AC 07/02 PO 0722 Furosemide 40 MG 7:30 AM, & 4:30 PM 07/01 1630 AC 07/02 IV 0722 Furosemide 20 MG 7:30 AM, & 4:30 PM 07/01 0730 DC 07/01 IV 0737 Metoprolol Tartrate 12.5 MG BID 07/01 0900 AC 07/02 PO 0722 Last 24 Hrs of Lab/Yoan Results Last 24 Hrs of Labs/Mics: Laboratory Tests 07/02/17 0640: Anion Gap 8, Estimated GFR 49 L, BUN/Creatinine Ratio 27.9 H, Magnesium 2.0 Assessment/Plan Assessment: 81 year old male with PMH significant for colon cancer s/p colectomy, CAD, pacemaker, HTN, AVR, chronic anemia, 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 Bilateral pleural effusion s/p thoracentesis on previous admission bibasilar consolidation on chest x-ray Repeat PA and lateral chest x-ray shows no significant change with small left moderate pleural effusions Dyspnea on exertion: Secondary to HFrEF Increase Lasix to 40 mg IV twice a day Check I/Os, daily weights Follow up cardiology recommendations Creatinine elevated to 1.5 from 1.4 yesterday with diuretics Acute kidney injury - creatinine elevated to 1.4, 1.2 on prior discharge Reduced frequency of diuretics back to home dose of 40mg daily Trend renal function Lisinopril on hold, patient had an episode of hypotension overnight, however for the most part BP has been stable Ischemic cardiomyopathy with EF of about 30% 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 CHF (congestive heart failure) 2. Acute kidney failure 3. Pleural effusion Pain Ratin Pain Location: none Pain Goal: Remain pain free Pain Plan: pain pathway Tomorrow's Labs & Rationales: lanie Brown MD,Diana 07/02/17 1233: Attending MD Review Statement Attending Statement Attending MD Statement: examined this patient, discuss w/resident/PA/PERSONNEL COORDINATOR, agreed w/resident/PA/PERSONNEL COORDINATOR, reviewed EMR data (avail), discussed with nursing, discussed with case mgmt, reviewed images Attending Assessment/Plan: Overall patient appears in better spirits today. He is still fairly frustrated that despite an extensive stay and massive diuresis, he still short of breath and volume overloaded. Based on cardiology's recommendations we will increase the Lasix to 40 IV twice a day and his creatinine is 1.4. I am concerned that he had an episode of borderline blood pressure yesterday and that will be tough given that we don't have him on the ZELDA inhibitor right now and we will need to introduce that for the acute on chronic systolic heart failure.
[2017-07-02 14:27] VITALS: BP 98/62
[2017-07-02 22:17] VITALS: BP 110/76
--- NOTE | 2017-07-02 22:47 | PN- Cardiology ---
See Addendum Subjective Subjective: No complaints. No acute events, no event on telemetry. Objective Vital Signs and I&Os Vital Signs Date Time Temp Pulse Resp B/P B/P Pulse O2 O2 Flow FiO2 Mean Ox Delivery Rate 07/023 Room Air 07/02 2217 97.8 70 20 110/76 93 Room Air 07/02 2042 80 110/76 07/02 1427 98.0 79 20 98/62 93 Room Air 07/02 0800 Room Air 07/02 0722 80 120/80 07/02 0719 80 120/80 / 0643 97.8 80 20 114/84 94 Room Air 07/01 2344 Room Air Intake & Output 07/02 0000 07/01 0000 Intake Total 296 120 414 612 120 Output Total 700 450 775 305 571 9060 Balance -404 -330 -361 -288 -280 -1900 Intake, IV 14 14 12 Intake, Oral 282 120 400 600 120 Output, Urine 700 450 775 608 387 9853 Patient 197 lb 197 lb Weight Weight Bed scale Reported by Patient Measurement Method Physical Exam: General Appearance: Alert, Oriented X3, Cooperative Cardiovascular: Regular Rate, Normal S1, Normal S2, 2/6 systolic ejection murmur LLSB Lungs: diminished breath sounds at the bases, no wheezing, no crackles Abdomen: Normal Bowel Sounds, Soft, No Tenderness Extremities: trace distal LE edema, good capillary refill Current Medications: Current Medications Sig/Xochitl Start time Last Medication Dose Route Stop Time Status Admin Acetaminophen 650 MG Q6P PRN 07/01 329 AC 07/01 PO 0632 Acetaminophen 1,000 MG Q6P PRN 07/01 033 AC IV Aspirin 81 MG DAILY 07/01 899 AC 07/02 PO 0722 Atorvastatin Calcium 40 MG 1700 07/01 1700 AC 07/02 PO 1649 Divalproex Sodium 250 MG DAILY 07/01 899 AC 07/02 PO 07 Escitalopram Oxalate 20 MG DAILY 07/01 899 AC 07/02 PO 07 Furosemide 40 MG 7:30 AM, & 4:30 PM 07/01 1630 AC 07/02 IV 1652 Metoprolol Tartrate 12.5 MG BID 07/01 899 AC 07/02 PO 2041 Results Last 48 Hrs of Labs/Mics: Laboratory Tests 07/02/17 0640: Anion Gap 8, Estimated GFR 49 L, BUN/Creatinine Ratio 27.9 H, Magnesium 2.0 07/01/17 0708: Anion Gap 11, Estimated GFR 45 L, BUN/Creatinine Ratio 23.3, Troponin I 0.02, CBC w Diff NO MAN DIFF REQ, RBC 3.25 L, MCV 100.1 H, MCH 33.0 H, MCHC 32.9 L , RDW 20.0 H, MPV 10.2, Gran % 54.4, Lymphocytes % 29.7, Monocytes % 12.8 H, Eosinophils % 2.5, Basophils % 0.6, Absolute Granulocytes 3.5, Absolute Lymphocytes 1.9, Absolute Monocytes 0.8 H, Absolute Eosinophils 0.2, Absolute Basophils 0 Assessment/Plan Assessment/Plan CHF in patient with reduce LVEF and ischemic cardiomyopathy as well as recent redo surgery for aortic and mitral valve bioprosthesis repair, aortic root abcess completing 6 weeks IV antibiotics. Pleural effusion has also increased since discharge. WAYNE. I would maintain lasix to 40 mg IV bid for the moment, with renal function monitoring, aiming for a negative fluid balance 1-2L/24hr. Repeat BNP tomorrow. tolerating creatinine ~ 1.4-1.6. Stop lisinopril entirely until creatinine <1.3. Repeat CXR monday. If pleural effusion does not improve with diuresis, may have to consider repeat thoracentesis +/- leave drain in place... Continue telemetry? Yes
[2017-07-03 06:57] VITALS: BP 104/70
--- NOTE | 2017-07-03 07:16 | PN- Housestaff ---
See Addendum Subjective Follow-up For: HFrEF pleural effusions Tele-Events Since Last Visit: paced rhythm, no events Subjective: patient still has some exertional dyspnea, denies chest pain no new complaints, no overnight events Review of Systems Constitutional: Reports: see HPI. Objective Last 24 Hrs of Vital Signs/I&O Vital Signs Date Time Temp Pulse Resp B/P B/P Pulse O2 O2 Flow FiO2 Mean Ox Delivery Rate 07/03 0557 97.8 80 20 104/70 96 Room Air 07/02 2243 Room Air 07/02 2217 97.8 70 20 110/76 93 Room Air 07/02 2042 80 110/76 07/02 1427 98.0 79 20 98/62 93 Room Air Intake & Output 07/03 1600 07/03 0800 07/03 0000 Intake Total 200 454 Output Total 550 525 Balance -350 -71 Intake, IV 14 Intake, Oral 200 440 Output, Urine 550 525 Patient 88.621 kg Weight Weight Bed scale Measurement Method Physical Exam General Appearance: Alert, Oriented X3, Cooperative, No Acute Distress Cardiovascular: Regular Rate, Normal S1, Normal S2, No Murmurs Lungs: diminished at the right base Abdomen: Normal Bowel Sounds, Soft, No Tenderness, No Masses Extremities: No Clubbing, No Cyanosis, Normal Pulses, 2+ bilateral lower extremity edema Current Medications: Current Medications Sig/Xochitl Start time Last Medication Dose Route Stop Time Status Admin Acetaminophen 650 MG Q6P PRN 07/01 0330 AC 07/01 PO 0632 Acetaminophen 1,000 MG Q6P PRN 07/01 0330 AC IV Aspirin 81 MG DAILY 07/01 09 AC 07/02 PO 0722 Atorvastatin Calcium 40 MG 1700 07/01 1700 AC 07/02 PO 1649 Divalproex Sodium 250 MG DAILY 07/01 09 AC 07/02 PO 0722 Escitalopram Oxalate 20 MG DAILY 07/01 09 AC 07/02 PO 0722 Furosemide 40 MG 7:30 AM, & 4:30 PM 07/01 1630 AC 07/02 IV 1652 Metoprolol Tartrate 12.5 MG BID 07/01 899 07/02 PO 204 Last 24 Hrs of Lab/Yaon Results Last 24 Hrs of Labs/Mics: Laboratory Tests 07/03/17 0625: Sodium Pending, Potassium Pending, Chloride Pending, Carbon Dioxide Pending, Anion Gap Pending, BUN Pending, Creatinine Pending, BUN/Creatinine Ratio Pending , [id number]-U-Fhgdnpelcye Pept Pending, CBC w Diff Pending, WBC Pending, RBC Pending, Hgb Pending, Hct Pending, MCV Pending, MCH Pending, MCHC Pending, RDW Pending, Plt Count Pending, MPV Pending Assessment/Plan Assessment: 81 year old male with PMH significant for colon cancer s/p colectomy, CAD, pacemaker, HTN, AVR, chronic anemia, 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 Bilateral pleural effusion: s/p thoracentesis on previous admission bibasilar consolidation on chest x-ray with moderate right pleural effusion despite thora Repeat PA and lateral chest x-ray Dyspnea on exertion: Secondary to HFrEF Increased Lasix to 40 mg IV twice a day Check I/Os, daily weights Follow up cardiology recommendations Negative fluid balance >4L Creatinine elevated to 1.4-1.5 on IV lasix Acute kidney injury - creatinine elevated to 1.5 with diuresis, 1.2 on prior discharge ACEi held, on IV furosemide 40mg bid Trend renal function Avoid nephrotoxins Ischemic cardiomyopathy with EF of about 30% 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 CHF (congestive heart failure) 2. CHF exacerbation 3. Acute kidney failure 4. Pleural effusion Pain Ratin Pain Location: n/a Pain Goal: Pain 4 or less Pain Plan: prn Tomorrow's Labs & Rationales: bep
[2017-07-03 08:04] LABS: ABSOLUTE BASOPHIL COUNT 0 /CUMM (0.0-0.2); ABSOLUTE EOSINOPHIL COUNT 0.2 /CUMM (0.0-0.7); ABSOLUTE LYMPH COUNT 1.3 /CUMM (1.2-3.4); ABSOLUTE MONOCYTE COUNT 0.7 /CUMM (0.10-0.60); BASOPHIL % 0.6 % (0.0-2.0); GRANULOCYTE % 57.3 % (42.2-75.2); HEMATOCRIT 31.7 % (42-52); MEAN CORPUSCULAR HGB 32.9 PG (27.0-31.0); MEAN CORPUSCULAR HGB CONC 32.7 G/DL (33.0-37.0); MEAN CORPUSCULAR VOLUME 100.6 FL (80.0-94.0); MEAN PLATELET VOLUME 9.1 FL (7.4-10.4); PLATELET COUNT 122 /CUMM (130-400); RBC DISTRIBUTION WIDTH 19.6 % (11.5-14.5); RED BLOOD CELL CT 3.15 /CUMM (4.70-6.10); WHITE BLOOD CELL COUNT 5.3 /CUMM (4.8-10.8)
[2017-07-03 08:11] VITALS: BP 104/70
--- NOTE | 2017-07-03 10:48 | PN- Cardiology ---
Subjective Subjective: Shortness of breath improving. No chest pain. No palpitations. No diaphoresis. No nausea or vomiting. Objective Vital Signs and I&Os Vital Signs Date Time Temp Pulse Resp B/P B/P Pulse O2 O2 Flow FiO2 Mean Ox Delivery Rate 07/03 0811 80 104/70 / 0657 97.8 80 20 104/70 96 Room Air 07/02 2243 Room Air 07/02 2217 97.8 70 20 110/76 93 Room Air 07/02 2042 80 110/76 / 1427 98.0 79 20 98/62 93 Room Air Intake & Output 07/03 1600 07/03 0807/03 0000 07/02 1600 07/02 0000 Intake Total 200 454 296 120 414 Output Total 550 525 700 450 775 Balance -350 -71 -404 -330 -361 Intake, IV 14 14 14 Intake, Oral 200 440 282 120 400 Output, Urine 550 525 700 450 775 Patient 195 lb Weight Weight Bed scale Measurement Method Physical Exam: Gen: NAD HEENT: normal Lungs: Scattered rales bilaterally, normal resp. effort Heart: RRR, S1, S2, 2 out of 6 systolic Abdomen: Soft, nontender, no masses Extremities: 1+ edema Neuro: Alert and oriented x 3, cranial nerves intact Current Medications: Current Medications Sig/Xochitl Start time Last Medication Dose Route Stop Time Status Admin Acetaminophen 650 MG Q6P PRN 07/01 033 AC 07/01 PO 0632 Acetaminophen 1,000 MG Q6P PRN 07/01 0330 AC IV Aspirin 81 MG DAILY 07/01 09 AC 07/03 PO 0811 Atorvastatin Calcium 40 MG 1700 07/01 1700 AC 07/02 PO 1649 Divalproex Sodium 250 MG DAILY 07/01 09 AC 07/03 PO 0811 Escitalopram Oxalate 20 MG DAILY 07/01 09 AC 07/03 PO 0811 Furosemide 40 MG 7:30 AM, & 4:30 PM 07/01 1630 AC 07/03 IV 0810 Metoprolol Tartrate 12.5 MG BID 07/01 09 AC 07/03 PO 0811 Results Last 48 Hrs of Labs/Mics: Laboratory Tests 07/03/17 0625: Anion Gap 10, Estimated GFR 45 L, BUN/Creatinine Ratio 27.3 H, Pro-B- Natriuretic Pept 9460 H, CBC w Diff NO MAN DIFF REQ, RBC 3.15 L, MCV 100.6 H, MCH 32.9 H, MCHC 32.7 L, RDW 19.6 H, MPV 9.1, Gran % 57.3, Lymphocytes % 25.4 , Monocytes % 13.7 H, Eosinophils % 3.0, Basophils % 0.6, Absolute Granulocytes 3.0, Absolute Lymphocytes 1.3, Absolute Monocytes 0.7 H, Absolute Eosinophils 0.2, Absolute Basophils 0 07/02/17 0640: Anion Gap 8, Estimated GFR 49 L, BUN/Creatinine Ratio 27.9 H, Magnesium 2.0 Assessment/Plan Assessment/Plan Assessment: 1. Acute on chronic systolic heart failure, LVEF 39% on unofficial reading of MUGA scan 2. Bilateral pleural effusions greater on the right side-stable post thoracentesis 3. History of coronary artery disease, status post stenting 4. 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 Cardiomyopathy with ejection fraction approximately 30% 6. Mitral valve replacement 7. Permanent pacemaker 8. Hypertension 9. Hyperlipidemia 10. 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 Howell Continue telemetry? Yes
[2017-07-03] MEDS ORDERED: LASIX40 M1 PO ×2 (11:55→14:26)
--- NOTE | 2017-07-03 13:09 | Patient Discharge Instructions ---
Discharge Instructions General Discharge Information You were seen/treated for: CHF pleural effusion Special Instructions: You were treated for CHF. Your lasix dose was being increased to 40mg BID. Follow up with Dr. Howell and at the CHF clinic. Acute Coronary Syndrome Inclusion Criteria At DC or during hospital stay patient has or had the following: ACS DIAGNOSIS No Discharge Core Measures Meds if any: Prescribed or Continued at Discharge Meds if any: NOT Prescribed or Continued at Discharge Congestive Heart Failure Inclusion Criteria At DC or during hospital stay patient has or had the following: CHF DIAGNOSIS Yes Discharge Core Measures Meds if any: Prescribed or Continued at Discharge ZELDA/ARB for EF <40% No Meds if any: NOT Prescribed or Continued at Discharge No ZELDA/ARB d/t Medical Contraindication (saeid) Cerebrovascular accident Inclusion Criteria At DC or during hospital stay patient has or had the following: CVA/TIA Diagnosis No Discharge Core Measures Meds if any: Prescribed or Continued at Discharge Meds if any: NOT Prescribed or Continued at Discharge Venous thromboembolism Inclusion Criteria VTE Diagnosis No VTE Type NONE VTE Confirmed by (Test) NONE Discharge Core Measures - Per Current guidelines, there needs to be overlap - treatment for the first 5 days of Warfarin therapy. - If discharged on Warfarin prior to 5 days of - overlap therapy, the patient will need to be - assessed for post discharge needs including - *Post discharge parental anticoagulation - *Warfarin and/or parental anticoagulation education - *Follow up date to check INR post discharge At least 5 days overlap therapy as Inpatient No Meds if any: Prescribed or Continued at Discharge Note: Overlap Therapy is Warfarin and Anticoagulant Meds if any: NOT Prescribed or Continued at Discharge
--- NOTE | 2017-07-03 13:25 | RADIOLOGY REPORT ---
EXAMINATION: XR CHEST CLINICAL INFORMATION: Monitor for change in pleural effusion after diuresis. Presumptive diagnosis of CHF. COMPARISON: Multiple prior chest x-rays, most recent of which is dated 07/01/2017. TECHNIQUE: 2 views of the chest were obtained. FINDINGS: The patient is status post median sternotomy and aortic and mitral valve replacement. Median sternotomy wires appear unremarkable to the extent seen. EKG leads overlie the chest. The cardiomediastinal silhouette is enlarged, unchanged. Tortuosity and calcification of the aorta is noted. Central vascular congestion is noted, unchanged. There is a persistent moderate size right-sided pleural effusion with extension into the fissure with associated right mid and lower lung parenchymal opacities, likely representing atelectasis. Left lung is relatively well expanded and clear. No evidence of pulmonary edema or pneumothorax. Azygos lobe fissure is seen in the right lung apex. IMPRESSION: 1. No significant change in moderate size right-sided pleural effusion and associated right basilar opacities, likely due to atelectasis. Clinically correlate to exclude pneumonia. 2. Cardiomegaly and central vascular congestion again seen, unchanged.
[2017-09-01] MEDS ORDERED: LEVOTHYROXINE25 MCG PO (09:26)
[2017-09-01] MEDS ORDERED: DAILY MULTIPLE1 EACH PO (09:27)
[2017-09-01] MEDS ORDERED: LORATADINE10 M1 PO (09:27)
== END 2017-07-03 15:50 | disposition home health service (06) ==
LOC: ERH 22:07 → 1NO 07-01 01:12 → ERHI 07-01 01:12 → ENRESERV 07-01 03:11 → 1NO 07-01 03:45 → ENPENDDIS 07-03 13:27 → ENTRNSPT 07-03 15:25 → EDTRNSPT 07-03 15:38 → EDTRNSPTSTS 07-03 15:38 → 1NO 07-03 15:50 → CMPTRNSPT 07-03 15:56
PROVIDERS: Dermatology; Pediatrics; Student in an Organized Health Care Education/Training Program
DX: I11.0 Hypertensive heart disease with heart failure (principal); I50.23 Acute on chronic systolic (congestive) heart failure; N17.9 Acute kidney failure, unspecified; D69.6 Thrombocytopenia, unspecified; I25.10 Atherosclerotic heart disease of native coronary artery without angina pectoris; Z95.2 Presence of prosthetic heart valve; Z95.0 Presence of cardiac pacemaker; Z85.038 Personal history of other malignant neoplasm of large intestine; E78.5 Hyperlipidemia, unspecified; F32.9 Major depressive disorder, single episode, unspecified; Z79.82 Long term (current) use of aspirin; D64.9 Anemia, unspecified; Z87.891 Personal history of nicotine dependence; Z95.5 Presence of coronary angioplasty implant and graft; I25.5 Ischemic cardiomyopathy
CPT/HCPCS: 36592; 71045; 71046; 82436; 93005; 93010; 96374; 96376; G0378; J1940; J3490

== ENCOUNTER 2017-08-14 15:24 | Inpatient (IN) | payer OTHER, MEDICARE ==
[~2017-08-14] VITALS: Ht 165.1 cm; Wt 94.0 kg
--- NOTE | 2017-08-14 15:46 | ED DYSPNEA/ASTHMA COMPLAINT ---
See Addendum History of Present Illness General Chief Complaint: Dyspnea (COPD, CHF, Other) Stated Complaint: BIBA FOR DIFFICULTY BREATHING/CHF Source: patient, old records, EMS Exam Limitations: no limitations Vital Signs & Intake/Output Vital Signs & Intake/Output Vital Signs Date Time Temp Pulse Resp B/P B/P Pulse O2 O2 Flow FiO2 Mean Ox Delivery Rate 08/14 1745 98.2 80 20 124/81 99 Nasal 2.0L Cannula 08/14 1557 115/74 08/14 1550 100 Nasal Cannula 08/14 1548 97.5 80 22 100 Nasal 2.5L Cannula Allergies Coded Allergies: No Known Allergies (06/30/17) Reconcile Medications Aspirin (Ecotrin*) 325 MG TABLET.DR 1 TAB PO DAILY HEART (Reported) Atorvastatin Calcium 40 MG TABLET 1 TAB PO 1700 CHOLESTEROL (Reported) Divalproex Sodium 250 MG TABLET.DR 1 TAB PO DAILY MENTAL HEALTH (Reported) Escitalopram Oxalate (Lexapro) 20 MG TABLET 1 TAB PO DAILY MENTAL HEALTH ( Reported) Furosemide (Lasix) 40 MG TABLET 1 TAB PO BID CHF . Metoprolol Tartrate 25 MG TABLET 0.5 TAB PO BID HEART/BP (Reported) Triage Nurses Notes Reviewed? yes HPI: Patient presents with increasing shortness of breath, dyspnea on exertion and orthopnea worsening over the past few days. Patient denies any chest pain. Patient has a history of CHF and get recurrent pleural effusions which require to be tapped. Patient states that he feels like he needs another thoracentesis. Patient denies any fevers or chills. There's no coughing. He states that his legs are getting more swollen than normal as well. Past History Travel History Traveled to [place] past 21 day No Medical History Any Pertinent Medical History? see below for history Neurological: NONE EENT: NONE Cardiovascular: CAD (s/p stent), CHF, hypertension, hyperlipidemia, PACEMAKER Respiratory: NONE Gastrointestinal: colon cancer Hepatic: NONE Renal: NONE Musculoskeletal: NONE Psychiatric: depression Endocrine: NONE Blood Disorders: anemia Cancer(s): colon/rectal cancer FACILITIES LOCATOR/Reproductive: NONE History of MRSA: No History of VRE: No History of CDIFF: No Surgical History Surgical History: colon resection, s/p aortic valve replacement Psychosocial History Who do you live with Spouse Services at Home None What is your primary language Spanish Tobacco Use: Quit >30 days ago ETOH Use: denies use Illicit Drug Use: denies illicit drug use Family History Hx Contributory? No Review of Systems Review of Systems Constitutional: Reports: no symptoms. EENTM: Reports: no symptoms. Respiratory: Reports: see HPI, orthopnea, short of breath. Cardiovascular: Reports: no symptoms. GI: Reports: no symptoms. Genitourinary: Reports: no symptoms. Musculoskeletal: Reports: no symptoms. Skin: Reports: no symptoms. Neurological/Psychological: Reports: no symptoms. Hematologic/Endocrine: Reports: no symptoms. Immunologic/Allergic: Reports: no symptoms. All Other Systems: Reviewed and Negative Physical Exam Physical Exam General Appearance: well developed/nourished, alert, awake, anxious, moderate distress Head: atraumatic, normal appearance Eyes: Bilateral: PERRL, EOMI. Ears, Nose, Throat: normal pharynx, normal ENT inspection, hearing grossly normal Neck: normal inspection, supple, full range of motion, JVD Respiratory: decreased breath sounds, crackles Cardiovascular: regular rate/rhythm, normal peripheral pulses Gastrointestinal: normal bowel sounds, soft, non-tender Extremities: normal capillary refill, pedal edema Neurologic/Psych: no motor/sensory deficits, awake, alert, oriented x 3, normal mood/affect Skin: intact, normal color, warm/dry Lymphatic: no anterior cervical tyra Core Measures ACS in differential dx? No CVA/TIA Diagnosis No Sepsis Present: No Sepsis Focused Exam Completed? No Progress Differential Diagnosis: AMI, bronchitis, CHF, pulmonary embolism, pneumonia, pneumothorax Plan of Care: Orders Procedure Date/time Status Add-on Test (ER Only) 08/14 1701 Active DEPAKOTE LEVEL 08/14 1600 Complete Telemetry/Regional Vice President Surgical Sales 08/14 1543 Active URINALYSIS 08/14 1543 Complete TROPONIN LEVEL 08/14 1543 Complete COMPREHENSIVE METABOLIC PANEL 08/14 1543 Complete CBC WITHOUT DIFFERENTIAL 08/14 1543 Complete B-TYPE NATRIURETIC PEP (BNP) 08/14 1543 Complete EKG 08/14 1543 Active Laboratory Tests 08/14/17 1812: Urine Color YEL, Urine Clarity CLEAR, Urine pH 6.0, Ur Specific [place] 1.015, Urine Protein TRACE H, Urine Ketones NEG, Urine Nitrite NEG, Urine Bilirubin NEG, Urine Urobilinogen 0.2, Ur Leukocyte Esterase NEG, Ur Microscopic SEDIMENT EXAMINED, Urine RBC RARE, Ur Epithelial Cells RARE, Urine Mucus RARE, Urine Hemoglobin NEG, Urine Glucose NEG 08/14/17 1600: Anion Gap 11, Estimated GFR 39 L, BUN/Creatinine Ratio 20.6, Glucose 82, Calcium 8.4, Total Bilirubin 0.7, AST 28, ALT 28, Alkaline Phosphatase 92, Troponin I 0.02, Stz-X-Akixnflhjvx Pept 33008 H, Total Protein 8.0, Albumin 3.3 L, Globulin 4.7 H, Albumin/Globulin Ratio 0.7 L, CBC w Diff NO MAN DIFF REQ, RBC 3.16 L, MCV 101.3 H, MCH 33.0 H, MCHC 32.6 L, RDW 19.5 H, MPV 9.3, Gran % 62.6, Lymphocytes % 22.7, Monocytes % 12.3 H, Eosinophils % 2.0, Basophils % 0.4, Absolute Granulocytes 4.3, Absolute Lymphocytes 1.6, Absolute Monocytes 0.8 H, Absolute Eosinophils 0.1, Absolute Basophils 0, Valproic Acid < 10.0 L Diagnostic Imaging: Viewed by Me: Radiology Read. Discussed w/RAD: Radiology Read. CXR Impression: PATIENT: ISHAN BLANCA PRESENT AGE: 81 PATIENT ACCOUNT NO: [id number] : 34 LOCATION: [facility] ORDERING PHYSICIAN: Pierre Daniel MD SERVICE DATE: 08/14/17 EXAM TYPE: RAD - XRY- PORTABLE CHEST XRAY EXAMINATION: XR PORTABLE CHEST CLINICAL INFORMATION: Pulmonary edema. Shortness of breath. COMPARISON: Chest x-ray 07/03/2017 TECHNIQUE: Portable frontal view of the chest was obtained. 4:04 PM FINDINGS: There is blunting of the right and left costophrenic angle. The blunting left costophrenic angle is small, but new since exam of 07/03/2017. The blunting of the right costophrenic angle is similar to the prior chest x-ray consistent with a moderate-sized right pleural effusion. Parenchymal opacity remains the right lung base likely representing atelectasis. No significant central pulmonary vascular congestion. Lung volume is low. Status post median sternotomy. There are calcifications of aortic arch. IMPRESSION: Bilateral pleural effusions. The pleural effusion volume similar, moderate in volume, to the chest x-ray 2017. The smaller left pleural effusion is new since the prior chest x-ray. No significant pulmonary vascular congestion. DICTATED BY: Kaiser Liu MD DATE/ TIME DICTATED:08/14/171646 [employer] SORTER:HOLLIE DATE/TIME TRANSCRIBED: 08/14/171646 CONFIDENTIAL, DO NOT COPY WITHOUT APPROPRIATE AUTHORIZATION. < Electronically signed in Other Vendor System> SIGNED BY: Kaiser Liu MD 1655 Initial ED EKG: pacemaker rhythm Prior EKG: unchanged Rhythm Strip: PACED Comments: Patient is feeling much better after IV diuresis. Patient is stable for discharge. Departure Departure Disposition: HOME OR SELF CARE Condition: Stable Clinical Impression Primary Impression: Fluid overload Referrals: Steve SORIA,Jenny (PCP/Family) Additional Instructions: Return if symptoms worsen or for any concerns. Departure Forms: Customer Survey General Discharge Information Critical Care Note Critical Care Note Critical Care Time: non-applicable
[2017-08-14 16:26] LABS: ABSOLUTE BASOPHIL COUNT 0 /CUMM (0.0-0.2); ABSOLUTE EOSINOPHIL COUNT 0.1 /CUMM (0.0-0.7); ABSOLUTE GRANULOCYTE CT 4.3 /CUMM (1.4-6.5); ABSOLUTE LYMPH COUNT 1.6 /CUMM (1.2-3.4); ABSOLUTE MONOCYTE COUNT 0.8 /CUMM (0.10-0.60); BASOPHIL % 0.4 % (0.0-2.0); GRANULOCYTE % 62.6 % (42.2-75.2); MEAN CORPUSCULAR HGB CONC 32.6 G/DL (33.0-37.0); MEAN CORPUSCULAR VOLUME 101.3 FL (80.0-94.0); MEAN PLATELET VOLUME 9.3 FL (7.4-10.4); PLATELET COUNT 103 /CUMM (130-400); RBC DISTRIBUTION WIDTH 19.5 % (11.5-14.5); RED BLOOD CELL CT 3.16 /CUMM (4.70-6.10); WHITE BLOOD CELL COUNT 6.9 /CUMM (4.8-10.8)
--- NOTE | 2017-08-14 16:56 | RADIOLOGY REPORT ---
EXAMINATION: XR PORTABLE CHEST CLINICAL INFORMATION: Pulmonary edema. Shortness of breath. COMPARISON: Chest x-ray 07/03/2017 TECHNIQUE: Portable frontal view of the chest was obtained. 4:04 PM FINDINGS: There is blunting of the right and left costophrenic angle. The blunting left costophrenic angle is small, but new since exam of 07/03/2017. The blunting of the right costophrenic angle is similar to the prior chest x-ray consistent with a moderate-sized right pleural effusion. Parenchymal opacity remains the right lung base likely representing atelectasis. No significant central pulmonary vascular congestion. Lung volume is low. Status post median sternotomy. There are calcifications of aortic arch. IMPRESSION: Bilateral pleural effusions. The pleural effusion volume similar, moderate in volume, to the chest x-ray 07/03/2017. The smaller left pleural effusion is new since the prior chest x-ray. No significant pulmonary vascular congestion.
[2017-08-14 20:47] VITALS: BP 136/74
--- NOTE | 2017-08-14 21:03 | History & Physical ---
Sinai Lopez 08/14/172050: General Information and HPI MD Statement: I have seen and personally examined ISHAN TOWNSEND and documented this H&P. The patient is a 81 year old M who presented with a patient stated chief complaint of [shortness of breath]. 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 Apparently the noticed that he has been having worsening shortness of breath since past 2 months which has acutely worsened and less few days to the point that he is now very concerned. The shortness of breath comes and goes, initially it was more at nighttime however now it is also present in the daytime and therefore he has difficulty to walk. He has gained at least 15 pounds in past 1 month and has worsening bilateral lower extremity edema. He also complains of epigastric abdominal pain that is intermittent in nature, comes and goes, sharp in nature, and has much discomfort at present. He tried taking Tylenol which helped a little bit but not much. He claims that, possibly this is the site where the pacemaker was inserted however he is not completely sure about it. He denied any nausea, vomiting, cough, congestion, diarrhea or constipation, palpitations. He is not very compliant with his medications, does not follow up with the CHF clinic and has not kept his appointments with e tailer Dr. Howell Allergies/Medications Allergies: Coded Allergies: No Known Allergies (06/30/17) Home Med list Aspirin (Ecotrin*) 325 MG TABLET.DR 1 TAB PO DAILY HEART (Reported) Atorvastatin Calcium 40 MG TABLET 1 TAB PO 1700 CHOLESTEROL (Reported) Divalproex Sodium 250 MG TABLET.DR 1 TAB PO DAILY MENTAL HEALTH (Reported) Escitalopram Oxalate (Lexapro) 20 MG TABLET 1 TAB PO DAILY MENTAL HEALTH ( Reported) Furosemide (Lasix) 40 MG TABLET 1 TAB PO BID CHF . Lisinopril 2.5 MG TABLET 1 TAB PO DAILY htn (Reported) Metoprolol Tartrate 25 MG TABLET 0.5 TAB PO BID HEART/BP (Reported) Compliance With Home Meds: POOR Past History Travel History Traveled to [place] past 21 day No Medical History Neurological: NONE EENT: NONE Cardiovascular: CAD (s/p stent), CHF, hypertension, hyperlipidemia, PACEMAKER VALVUE REPLACEMENTS Respiratory: NONE Gastrointestinal: colon cancer Hepatic: NONE Renal: NONE Musculoskeletal: NONE Psychiatric: depression Endocrine: NONE Blood Disorders: anemia Cancer(s): colon/rectal cancer NANOSYSTEMS ENGINEER/Reproductive: NONE History of MRSA: No History of VRE: No History of CDIFF: No Isolation History: Standard Surgical History Surgical History: colon resection, s/p aortic valve replacement Past Family/Social History Psychosocial History Where do you live? Home Who Do You Live With? spouse Services at Home: None Primary Language: Georgian Smoking Status: Never Smoked ETOH Use: denies use Illicit Drug Use: denies illicit drug use Functional Ability ADLs Independent: dressing, eating, toileting, bathing. Ambulation: cane Review of Systems Review of Systems Constitutional: Reports: malaise, weakness. Denies: chills, diaphoresis, fever. EENTM: Denies: blurred vision, double vision, visual changes, eye pain. Cardiovascular: Reports: chest pain, orthopena, peripheral edema. Denies: edema, palpitations, syncope. Respiratory: Reports: orthopnea, short of breath. Denies: cough, hemoptysis, sputum production, stridor, wheezing. GI: Reports: abdominal pain, diarrhea, melena. Denies: bloating, constipation, distention, bowel incontinence, nausea, bloody stool, changes in stool, vomiting. Genitourinary: Reports: no symptoms. Musculoskeletal: Reports: no symptoms. Skin: Reports: no symptoms. Neurological/Psychological: Reports: no symptoms. All Other Systems: Reviewed and Negative Exam & Diagnostic Data Last 24 Hrs of Vital Signs/I&O Vital Signs Date Time Temp Pulse Resp B/P B/P Pulse O2 O2 Flow FiO2 Mean Ox Delivery Rate 08/14 2046 98.5 79 21 136/74 98 08/14 1929 97.8 81 18 129/82 100 Nasal 2.0L Cannula 08/14 1744 98.2 80 20 124/81 99 Nasal 2.0L Cannula 08/14 1557 115/74 08/14 1550 100 Nasal Cannula 08/14 1548 97.5 80 22 100 Nasal 2.5L Cannula Intake & Output 08/14 1600 08/14 0800 08/14 0000 Intake Total Output Total Balance Patient 90.718 kg Weight Weight Reported by Patient Measurement Method Physical Exam General Appearance Alert, Oriented X3, Cooperative, Mild Distress Skin No Rashes, No Breakdown, b/l le edema+ Skin Temp/Moisture Exam: Cool/Dry Sepsis Skin Exam (color): Normal for Ethnicity HEENT Atraumatic, PERRLA, EOMI Neck Supple, No JVD Cardiovascular Normal S1, Normal S2, No Murmurs, bibasilar crackles Lungs Clear to Auscultation, Normal Air Movement Abdomen Soft, small mass in the epigastric area, soft to firm, cannot appreciate borders,tender on deep palpation, distended Neurological Normal Speech, Strength at 5/5 X4 Ext, Normal Tone, Sensation Intact Extremities b/l edema+ Vascular Normal Pulses Last 24 Hrs of Labs/Yoan: Laboratory Tests 08/14/17 1812: Urine Color YEL, Urine Clarity CLEAR, Urine pH 6.0, Ur Specific [place] 1.015, Urine Protein TRACE H, Urine Ketones NEG, Urine Nitrite NEG, Urine Bilirubin NEG, Urine Urobilinogen 0.2, Ur Leukocyte Esterase NEG, Ur Microscopic SEDIMENT EXAMINED, Urine RBC RARE, Ur Epithelial Cells RARE, Urine Mucus RARE, Urine Hemoglobin NEG, Urine Glucose NEG 08/14/17 1600: Anion Gap 11, Estimated GFR 39 L, BUN/Creatinine Ratio 20.6, Glucose 82, Calcium 8.4, Total Bilirubin 0.7, AST 28, ALT 28, Alkaline Phosphatase 92, Troponin I 0.02, Zxe-L-Haekzpmaywv Pept 98476 H, Total Protein 8.0, Albumin 3.3 L, Globulin 4.7 H, Albumin/Globulin Ratio 0.7 L, CBC w Diff NO MAN DIFF REQ, RBC 3.16 L, MCV 101.3 H, MCH 33.0 H, MCHC 32.6 L, RDW 19.5 H, MPV 9.3, Gran % 62.6, Lymphocytes % 22.7, Monocytes % 12.3 H, Eosinophils % 2.0, Basophils % 0.4, Absolute Granulocytes 4.3, Absolute Lymphocytes 1.6, Absolute Monocytes 0.8 H, Absolute Eosinophils 0.1, Absolute Basophils 0, Valproic Acid < 10.0 L Diagnostic Data CXR Results SERVICE DATE: 08/14/17 EXAM TYPE: RAD - XRY-PORTABLE CHEST XRAY EXAMINATION: XR PORTABLE CHEST CLINICAL INFORMATION: Pulmonary edema. Shortness of breath. COMPARISON: Chest x-ray 07/03/2017 TECHNIQUE: Portable frontal view of the chest was obtained. 4:04 PM FINDINGS: There is blunting of the right and left costophrenic angle. The blunting left costophrenic angle is small, but new since exam of 07/03/2017. The blunting of the right costophrenic angle is similar to the prior chest x-ray consistent with a moderate-sized right pleural effusion. Parenchymal opacity remains the right lung base likely representing atelectasis. No significant central pulmonary vascular congestion. Lung volume is low. Status post median sternotomy. There are calcifications of aortic arch. IMPRESSION: Bilateral pleural effusions. The pleural effusion volume similar, moderate in volume, to the chest x-ray 07/03/2017. The smaller left pleural effusion is new since the prior chest x-ray. No significant pulmonary vascular congestion. Assessment/Plan Assessment: Mr. Townsend is a 81-year-old male with an extensive PMH with a recent recent admission (06/22/17-06/28/17) for acute CHF exacerbation and an ECHO (05/2017) that showed a worsening EF of 25-30% (previous at [facility] 60%) and pulmonary hypertension. Vitals on presentation temperature of 98.2, pulse of 80, respiratory 20, blood pressure 124/81, he was saturating 99% on 2 L of nasal cannula. Relevant lab white count of 6.9, H/H of 10.4/32.0, dated of 103, MCV of 101.3. Sodium 140, potassium 4.3, BUN/creatinine 35/1.7 (baseline between 1-1.5), proBNP 15,600. Urine analysis did not show any evidence of infection. Chest x-ray showed bilateral pleural effusions, moderate in volume, similar to the chest x-ray on 07/03/2017, small new left pleural effusion, no pulmonary vascular congestion. CT abdomen and pelvis showed moderate volume abdominal ascites, generalized anasarca, bilateral pleural effusion, bibasilar consolidation/atelectasis, post median sternotomy, aortic and mitral valve repair, epicardial pacemaker leads and generator and upper abdomen, no acute bowel change. 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 Please admit to telemetry for 24 hours of observation. #1. Hypoxia + HFrEF * Chest x-ray shows Bilateral pleural effusions. The pleural effusion volume similar, moderate in volume, to the chest x-ray 07/03/2017. The smaller left pleural effusion is new since the prior chest x-ray. * His echo from 06/22/2017 shows an ejection fraction of 30% with abnormal septal motion and an RVSP of 40. * His BNP is 15,600 (previous baseline 9460) * Given patient endorsing worsening lower extremity edema, orthopnea and persistence of pleural effusion, there is concern that this is again an exacerbation of his heart failure. * IV diuresis * Continue ASA * Continue Atorvastatin * Continue metoprolol #WAYNE on CKD stage III: * Patient has creatinine 1.7 today. * In his previous admission he came in with creatinine 1.0 and his creatinine trended up to 1.5 and on discharge was 1.2. * Monitor I's and O's * Urine lytes * Hold lisinopril * Avoid nephrotoxins #Epigastric Abdominal Pain, abdominal ascites,anasarca * Lipase WNL * Amylase 181 * Ct A/P -Moderate volume of abdominal ascites with generalized anasarca + Bilateral pleural effusions + Status post median sternotomy +Status post aortic and mitral valve repair + Epicardial pacemaker leads the generator in the upper abdomen + Intact surgical suture line at the sigmoid colon. * Ct iv diuresis for now. * if still significant ascites, ultrasound guided paracentesis in am. #Anemia: * Patient is here low at 10.4 today. * Previously was 10.7 * His previous iron studies suggest anemia of chronic disease. * Will check serum iron, B12, folic acid, TSH * Monitor CBC #Thrombocytopenia * platelet Count of 103 . * In May 2017 patient had platelet around 100. * etiology unclear. * Con't monitor #Depression * Continue Lexapro * Continue divalproex * depakote levels < 10 below threshold. Full Code DVT PX ALPS CHF diet Tylenol, iv acetaminohpen for pain. As Ranked By This Provider Problem List: 1. CHF exacerbation 2. Acute kidney failure 3. Pleural effusion 4. Acute CHF (congestive heart failure) Core Measures/Misc (11/13) Acute Coronary Syndrome ACS Diagnosis: No Congestive Heart Failure Congestive Heart Failure Diagnosis Yes Last Known EF % 45 Cerebrovascular Accident CVA/TIA Diagnosis: No VTE (View Protocol) VTE Risk Factors Age>40 No Mechanical VTE Prophylaxis d/t Other No VTE Pharm Prophylaxis d/t Other Sepsis (View protocol) Sepsis Present: No If YES complete Sepsis Event Note If YES complete Sepsis Event Note Resident Review Statement Resident Statement: admitted by resident Shabbir SORIA, [facility] 08/14/17 2234: Core Measures/Misc (11/13) Sepsis (View protocol) If YES complete Sepsis Event Note If YES complete Sepsis Event Note Attending MD Review Statement Attending Statement Attending MD Statement: examined this patient, discuss w/resident/PA/CONTRACT PROCESSOR, agreed w/resident/PA/CONTRACT PROCESSOR, reviewed images, amended to note Attending Assessment/Plan: 81 yo M with h/o CAD s/p stent, ischemic cardiomyopathy with EF 30-35%, bioprosthetic aortic valve replacement c/b Strep endocarditis and 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 Patient has been admitted twice in the past 2 months for exacerbation of CHF. Patient did not follow up with Dr. Howell nor did he attend the CHF clinic. He reports missing a few doses of lasix off and on due to his forgetfulness. He denies chest pain, palpitations, nausea, vomiting or diarrhea. He does reports epigastric abdominal pain and thinks 'something is wrong with the pacemaker'. He reports weight gain of about 15 lbs in 4 weeks (baseline weight is 205-206, now about 220-223). His waist size has increased, his pants are tight for him. He had b/l lower extremity edema but does not seem to be worse as per patient. Patient reports having nursing services to help with medications but he does not have one now. Vitals are stable, except that he dropped his sats to 85% on RA on ambulation. He is not on oxygen at home at baseline. Exam: AAO, very [place], JVD+, Chest bibasilar crackles, Heart S1S2 regular, Abd distended, soft, epigastric tenderness, diffuse edema noted, LE: b/l 3++ pitting edema. Labs: H/H 10.4/32, Plt 103, BUN 35, creat 1.7 (baseline 1.3-1.5), trop neg, proBNP 33403, lipase normal. UA neg. Valproic acid <10. CXR: bilateral pleural effusions, volume is similar moderate, smaller left pleural effusion is new, no pulmonary vascular congestion. EKG: paced rhythm, Qtc 515. Echo (2018): EF 30-35%, pulmonary hypertension. Assessment and plan: 1. Acute hypoxic respiratory failure 2. Acute exacerbation of chronic HfrEF 3. Bilateral pleural effuions 4. WAYNE on CKD stage 3 5. Epigastric abdominal pain - chronic 6. Thrombocytopenia 7. Chronic anemia, H/H stable - 23 hour observation on Telemetry - Strict I/O's, daily weights - IV lasix 40 mg BID - Maintain negative fluid balance of 1-2 L - Titrate oxygen to keep sats >92% - Serial EKG and troponin to rule out ACS - Hold off on Echo until Cardio eval in AM (Dr. Howell). - Obtain CT Abd/pelvis without contrast - Ct. Aspirin, statin, metoprolol, divalproex and lexapro. - Work up anemia with iron studies, TSH, B12, folic acid. - Hold NSAIDs, ACEI or ARB. - Case management consult to set up CHF clinic appointments and home services. DVT ppx Alps. Full code. CT abd/pelvis: moderate volume adominal ascites, generalized anasarca, b/l pleural effusions with bibasilar consolidation/ atelectasis. Epicardial pacemaker leads the generator in upper abdomen. - Watch for effective diuresis, would consider ultrasound guided paracentesis. Observation Initial Note - I have personally examined ISHAN TOWNSEND on 08/14/17 at 0010. The disposition of EVANGELISTISHAN is uncertain at this time and before a determination can be made, he requires a period of observation for the following reasons [hypoxia, acute on chronic systolic CHF]
[2017-08-14 22:31] VITALS: BP 130/72
[2017-08-14] MEDS ORDERED: LISINOPRIL2.5 M1 PO (22:35)
--- NOTE | 2017-08-14 23:29 | CT SCAN REPORT ---
EXAMINATION: CT ABDOMEN AND PELVIS WITHOUT CONTRAST CLINICAL INFORMATION: Epigastric pain. COMPARISON: CT scan abdomen pelvis 12/23/2016 TECHNIQUE: Multidetector volumetric imaging was performed from the superior aspect of the liver through the pubic symphysis. Sagittal and coronal reformatted images were obtained on the technologist's workstation. DLP: 771.06 mGy-cm FINDINGS: LUNG BASES: There are bilateral pleural effusions. The effusion is larger on the right and small to moderate in volume on the left. There is dependent atelectasis at both lung bases. Patient is status post median sternotomy. Heart size is enlarged. Status post mitral valve and aortic valve repair. There are coronary artery calcifications. Epicardial leads seen at the base of the heart. Generator seen at the anterior upper abdomen. LIVER, GALLBLADDER, AND BILIARY TREE: The liver is normal in size, shape, and attenuation. No focal hepatic lesion or biliary ductal dilatation is present. Gallbladder is contracted. No bile duct dilatation. PANCREAS: Unremarkable. SPLEEN: Unremarkable. ADRENAL GLANDS: Unremarkable. KIDNEYS AND URETERS: There is a pedunculated cyst at the upper pole right kidney measuring 3.4 cm. There is a 1 cm pedunculated cyst at the posterior lateral lower pole of the left kidney and another 1.5 cm cyst also at the lower pole left kidney. There is no renal or ureteral calculus. There is no hydronephrosis. BLADDER: Unremarkable. GASTROINTESTINAL TRACT: No acute change of the bowel. No bowel obstruction. No bowel wall thickening or edema. Moderate volume of stool throughout the colon. Surgical suture line at the mid sigmoid. The appendix is not seen. The small bowel loops are unremarkable. MESENTERY: There is a moderate volume of abdominal ascites. No inflammation or free air. ABDOMINAL WALL: There is a small right sided ventral wall hernia. The defect of the wall measures 1.6 cm. The hernia sac measures approximately 4 x 1.5 x 3.4 cm. This hernia is about 10 cm cephalad from the umbilicus. LYMPH NODES: Normal. VASCULAR: There is atherosclerotic vascular wall calcifications of aorta and iliac arteries without aneurysm. PELVIC VISCERA: Prostate measures 4.8 cm transverse. OSSEOUS STRUCTURES: Multilevel degenerative spondylosis of spine disc height narrowing and endplate spurring. Vacuum disc phenomena L4-L5 and L5-S1. There is a grade 1 anterolisthesis of L4 on L5 and a grade 1 retrolisthesis of L5 on S1. No spondylolysis. There is bilateral facet joint arthrosis. IMPRESSION: 1. Moderate volume of abdominal ascites. 2. Generalized anasarca. 3. Bilateral pleural effusions. 4. Bibasilar consolidation/atelectasis. 5. Status post median sternotomy. Status post aortic and mitral valve repair. Epicardial pacemaker leads the generator in the upper abdomen. 6. No acute change of bowel. Intact surgical suture line at the sigmoid colon.
[2017-08-15 07:08] VITALS: BP 114/62
[2017-08-15 07:54] LABS: ABSOLUTE BASOPHIL COUNT 0 /CUMM (0.0-0.2); ABSOLUTE EOSINOPHIL COUNT 0.2 /CUMM (0.0-0.7); ABSOLUTE LYMPH COUNT 1.5 /CUMM (1.2-3.4); ABSOLUTE MONOCYTE COUNT 0.8 /CUMM (0.10-0.60); BASOPHIL % 0.7 % (0.0-2.0); GRANULOCYTE % 54.6 % (42.2-75.2); HEMATOCRIT 31.3 % (42-52); MEAN CORPUSCULAR HGB 32.8 PG (27.0-31.0); MEAN CORPUSCULAR HGB CONC 32.5 G/DL (33.0-37.0); MEAN CORPUSCULAR VOLUME 100.9 FL (80.0-94.0); MEAN PLATELET VOLUME 9.4 FL (7.4-10.4); PLATELET COUNT 96 /CUMM (130-400); RBC DISTRIBUTION WIDTH 19.7 % (11.5-14.5); WHITE BLOOD CELL COUNT 5.6 /CUMM (4.8-10.8)
--- NOTE | 2017-08-15 08:39 | PN- Housestaff ---
Orion SORIA,[facility] 08/15/17 0833: Subjective Follow-up For: Decompensated congestive heart failure with ejection fraction 30-35% Decompensated congestive heart failure with ejection fraction 30-35% Subjective: Patient was seen and examined this morning, laying comfortably in bed, vital signs are stable. Patient reported improvement of his breathing. No overnight events. Review of Systems Constitutional: Reports: see HPI. Objective Last 24 Hrs of Vital Signs/I&O Vital Signs Date Time Temp Pulse Resp B/P B/P Pulse O2 O2 Flow FiO2 Mean Ox Delivery Rate 08/15 1004 74 108/70 08/15 0800 94 Nasal 2.0L Cannula 08/15 0708 97.5 82 16 114/62 97 Nasal 2.0L Cannula 08/14 2252 Nasal 2.0L Cannula 08/14 2231 97.5 81 16 130/72 97 08/14 2047 98.5 79 21 136/74 98 08/14 1929 97.8 81 18 129/82 100 Nasal 2.0L Cannula 08/14 1745 98.2 80 20 124/81 99 Nasal 2.0L Cannula 08/14 1557 115/74 08/14 1550 100 Nasal Cannula 08/14 1548 97.5 80 22 100 Nasal 2.5L Cannula Intake & Output 08/15 1600 08/15 0800 08/15 0000 Intake Total 120 400 Output Total 200 1325 Balance -80 -925 Intake, Oral 120 400 Number 0 0 Bowel Movements Output, Urine 200 1325 Patient 100.924 kg Weight Weight Bed scale Measurement Method Physical Exam General Appearance: Alert, Oriented X3, Cooperative, No Acute Distress Skin: No Rashes, No Breakdown, No Significant Lesion Skin Temp/Moisture Exam: Warm/Dry HEENT: Atraumatic, PERRLA, EOMI, Mucous Membr. moist/pink Neck: Supple Cardiovascular: Regular Rate, Normal S1, Normal S2, No Murmurs Lungs: Normal Air Movement, bilateral fine basalar crackles Abdomen: Normal Bowel Sounds, Soft, No Tenderness Neurological: Normal Gait, Normal Speech, Strength at 5/5 X4 Ext, Normal Tone, Sensation Intact, Cranial Nerves 3-12 NL, Reflexes 2+ Extremities: No Clubbing, No Cyanosis, Normal Pulses, bilateral trace pedal edema Assessment/Plan Assessment: Mr. Townsend is a 81-year-old male with an extensive PMH with a recent recent admission (06/22/17-06/28/17) for acute CHF exacerbation and an ECHO (05/2017) that showed a worsening EF of 25-30% (previous at [facility] 60%) and pulmonary hypertension. Problem list Acute hypoxic respiratory failure Acute on chronic CHF EF30-35% Acute kidney injury on CK D stage III Bilateral pleural effusion and moderate amount ascites Thrambocytopenia Macrocytic anemia Plan Continue Lasix 40 twice a day pending cardiology recommendations Cardiology recommendation pending TSH is elevated, obtain free T4 and T3 Continue ins and outs measurement Vitals every shift Peripheral smear DVT prophylaxis FOR thrombocytopenia Code full Diet congestive heart failure Problem List: 1. CHF exacerbation Pain Ratin Pain Location: n/a Pain Goal: Pain 4 or less Pain Plan: see medication Tomorrow's Labs & Rationales: cbc, bep RaeDavidtristan 08/15/17 1112: Attending MD Review Statement Attending Statement Attending MD Statement: examined this patient, discuss w/resident/PA/HEATER HELPER, agreed w/resident/PA/HEATER HELPER, discussed with family, reviewed EMR data (avail), discussed with nursing, discussed with case mgmt, reviewed images, amended to note Attending Assessment/Plan: Patient seen/examined bedside. Patient with h/o CHF comes with progressive worsening of shortness of breath from acute on chronic CHF exacerbation. Patient started on iv diuretics and monitor I/O, daily weights. Cardiology consulted. ECHO as per cardiology. Optimize cardiac meds for heart failure. Monitor creatinine. Replace electrolytes as needed. gi/dvt prophylaxis
--- NOTE | 2017-08-15 14:22 | Cons- Cardiology ---
General Information and HPI Consulting Request Date of Consult: 08/15/17 Requested By: Maame Mcbride MD Reason for Consult: Heart failure History of Present Illness: The patient is an 81-year-old male with history of CAD, status post coronary stents, history of bioprosthetic aortic valve replacement which was replaced after infection, aortic wall rupture status post repair, status post epicardial pacemaker who presents with complaint of worsening shortness of breath, weight gain, and increased abdominal girth. The shortness of breath has been worsening for 2 months and became significantly worse over the past few days. He has significant orthopnea, and he has now developed shortness of breath throughout the day. He gained 15 pounds in a month, and he notes worsening lower extremity edema. He complains of intermittent brief episodes of abdominal discomfort. No chest pain. No palpitations. No diaphoresis. No syncope. No orthopnea. No nausea or vomiting. 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 Howell, however he is overdue for follow-up. Allergies/Medications Allergies: Coded Allergies: No Known Allergies (06/30/17) Home Med List: Aspirin (Ecotrin*) 325 MG TABLET.DR 1 TAB PO DAILY HEART (Reported) Atorvastatin Calcium 40 MG TABLET 1 TAB PO 1700 CHOLESTEROL (Reported) Divalproex Sodium 250 MG TABLET.DR 1 TAB PO DAILY MENTAL HEALTH (Reported) Escitalopram Oxalate (Lexapro) 20 MG TABLET 1 TAB PO DAILY MENTAL HEALTH ( Reported) Furosemide (Lasix) 40 MG TABLET 1 TAB PO BID CHF . Lisinopril 2.5 MG TABLET 1 TAB PO DAILY htn (Reported) Metoprolol Tartrate 25 MG TABLET 0.5 TAB PO BID HEART/BP (Reported) Current Medications: Current Medications Sig/Oxchitl Start time Last Medication Dose Route Stop Time Status Admin Acetaminophen 650 MG Q6P PRN 08/15 0500 AC PO Acetaminophen 650 MG ONCE ONE 08/14 2114 DC 08/14 PO 08/15 2115 214 Aspirin Buffered 325 MG DAILY 08/15 0900 AC 08/15 PO 1002 Atorvastatin Calcium 40 MG 1700 08/15 1700 AC PO Divalproex Sodium 250 MG DAILY 08/15 09 AC 08/15 PO 1002 Escitalopram Oxalate 20 MG DAILY 08/15 09 AC 08/15 PO 1002 Furosemide 40 MG 7:30 AM, & 4:30 PM 08/15 0730 AC 08/15 IV 1002 Furosemide 40 MG ONCE ONE 08/14 1715 DC 08/14 IV 08/14 1716 1713 Furosemide 0 .STK-MED ONE 08/14 1710 DC IV Heparin Sodium 5,000 UNIT Q8 08/14 2200 DC 08/15 (Porcine) SC 0608 Levothyroxine Sodium 0.025 MG DAILY AC 08/15 1357 AC PO Metoprolol Tartrate 12.5 MG BID 08/15 0900 AC 08/15 PO 1004 Oxycodone/ 1 TAB ONCE ONE 08/14 2230 DC 08/14 Acetaminophen PO 08/14 2231 2221 Review of Systems Review of Systems: No fever. No chills. No hemoptysis. No hematemesis. No syncope. All other systems were reviewed, and were noted to be negative. 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 Home Who Do You Live With? spouse Services at Home: None Primary Language: Kinyarwanda Smoking Status: Never Smoked ETOH Use: denies use Illicit Drug Use: denies illicit drug use Functional Ability ADLs Independent: dressing, eating, toileting, bathing. Ambulation: cane Exam & Diagnostic Data Vital Signs and I&O Vital Signs Date Time Temp Pulse Resp B/P B/P Pulse O2 O2 Flow FiO2 Mean Ox Delivery Rate 08/15 1004 74 108/70 08/15 0800 94 Nasal 2.0L Cannula 08/15 0708 97.5 82 16 114/62 97 Nasal 2.0L Cannula 08/14 2252 Nasal 2.0L Cannula 08/14 2231 97.5 81 16 130/72 97 08/14 2047 98.5 79 21 136/74 98 08/14 1929 97.8 81 18 129/82 100 Nasal 2.0L Cannula 08/14 1745 98.2 80 20 124/81 99 Nasal 2.0L Cannula 08/14 1557 115/74 08/14 1550 100 Nasal Cannula 08/14 1548 97.5 80 22 100 Nasal 2.5L Cannula Intake & Output 08/15 1600 08/15 0800 08/15 0000 08/14 1600 08/14 0800 08/14 0000 Intake Total 120 400 Output Total 200 1325 Balance -80 -925 Intake, Oral 120 400 Number 0 0 Bowel Movements Output, Urine 200 1325 Patient 223 lb 200 lb Weight Weight Bed scale Reported by Patient Measurement Method Physical Exam: Gen: The patient is in no acute distress HEENT: Normal nose, ears, and oropharynx. Pupils equal bilaterally. Conjunctiva normal. Neck: Supple with no JVD, no masses, and no thyromegaly Lungs: Bilateral rales with normal respiratory effort Heart: RRR, S1, S2, 2/6 systolic murmur. 2+ peripheral edema, 2+ pulses in the lower extremities bilaterally Abdomen: Soft, nontender, no masses. No hepatomegaly. No splenomegaly Extremities: No clubbing or cyanosis. Normal muscle strength in the upper and lower extremities Skin: Normal skin turgor with no skin ulcers or lesions noted. Neuro: Cranial nerves intact. Sensation intact Psych: Alert and oriented x 3 with appropriate affect Labs/Yoan Results: Laboratory Tests 08/15 08/15 0638 0040 Chemistry Sodium (137 - 145 mmol/L) 140 Potassium (3.5 - 5.1 mmol/L) 4.2 Chloride (98 - 107 mmol/L) 104 Carbon Dioxide (22 - 30 mmol/L) 27 Anion Gap (5 - 16) 9 BUN (9 - 20 mg/dL) 32 H Creatinine (0.7 - 1.2 mg/dL) 1.7 H Estimated GFR (>60 ml/min) 39 L BUN/Creatinine Ratio (7 - 25 %) 18.8 Iron (49 - 181 ug/dL) 75 TIBC (261 - 462 ug/dL) 293 Ferritin (17.9 - 464 ng/mL) 146.0 Troponin I (<0.11 ng/ml) 0.02 0.02 Vitamin B12 (239 - 931 pg/mL) 430 Folate (2.76 - 20.0 ng/mL) 19.5 TSH (0.270 - 4.200 uIU/mL) 82.500 H Free T4 (0.85 - 1.93 ng/dL) 0.30 L Total T3 (0.97 - 1.69 ng/mL) 0.72 L Cortisol AM Sample (4.46 - 22.7 ug/dL) Pending Hematology CBC w Diff MAN DIFF ORDERED WBC (4.8 - 10.8 /CUMM) 5.6 RBC (4.70 - 6.10 /CUMM) 3.10 L Hgb (14.0 - 18.0 G/DL) 10.2 L Hct (42 - 52 %) 31.3 L MCV (80.0 - 94.0 FL) 100.9 H MCH (27.0 - 31.0 PG) 32.8 H MCHC (33.0 - 37.0 G/DL) 32.5 L RDW (11.5 - 14.5 %) 19.7 H Plt Count (130 - 400 /CUMM) 96 L MPV (7.4 - 10.4 FL) 9.4 Gran % (42.2 - 75.2 %) 54.6 Lymphocytes % (20.5 - 51.1 %) 27.0 Monocytes % (1.7 - 9.3 %) 14.7 H Eosinophils % (0 - 5 %) 3.0 Basophils % (0.0 - 2.0 %) 0.7 Absolute Granulocytes (1.4 - 6.5 /CUMM) 3.0 Segmented Neutrophils (42.2 - 75.2 %) Pending Absolute Lymphocytes (1.2 - 3.4 /CUMM) 1.5 Absolute Monocytes (0.10 - 0.60 /CUMM) 0.8 H Absolute Eosinophils (0.0 - 0.7 /CUMM) 0.2 Absolute Basophils (0.0 - 0.2 /CUMM) 0 Immunology Thyroglobulin Antibody (< 61 U/mL) Pending Thyroid Peroxidase Ab (< 61 U/mL) Pending 08/14 08/14 1812 1600 Chemistry Sodium (137 - 145 mmol/L) 140 Potassium (3.5 - 5.1 mmol/L) 4.3 Chloride (98 - 107 mmol/L) 104 Carbon Dioxide (22 - 30 mmol/L) 26 Anion Gap (5 - 16) 11 BUN (9 - 20 mg/dL) 35 H Creatinine (0.7 - 1.2 mg/dL) 1.7 H Estimated GFR (>60 ml/min) 39 L BUN/Creatinine Ratio (7 - 25 %) 20.6 Glucose (65 - 99 mg/dL) 82 Calcium (8.4 - 10.2 mg/dL) 8.4 Total Bilirubin (0.2 - 1.3 mg/dL) 0.7 AST (17 - 59 U/L) 28 ALT (21 - 72 U/L) 28 Alkaline Phosphatase (< 127 U/L) 92 Troponin I (<0.11 ng/ml) 0.02 [id number] Pept (<125 pg/mL) 12296 H Total Protein (6.3 - 8.2 g/dL) 8.0 Albumin (3.5 - 5.0 g/dL) 3.3 L Globulin (1.9 - 4.2 gm/dL) 4.7 H Albumin/Globulin Ratio (1.1 - 2.2 %) 0.7 L Amylase (30 - 110 U/L) 181 H Lipase (23 - 300 U/L) 104 Hematology CBC w Diff NO MAN DIFF REQ WBC (4.8 - 10.8 /CUMM) 6.9 RBC (4.70 - 6.10 /CUMM) 3.16 L Hgb (14.0 - 18.0 G/DL) 10.4 L Hct (42 - 52 %) 32.0 L MCV (80.0 - 94.0 FL) 101.3 H MCH (27.0 - 31.0 PG) 33.0 H MCHC (33.0 - 37.0 G/DL) 32.6 L RDW (11.5 - 14.5 %) 19.5 H Plt Count (130 - 400 /CUMM) 103 L MPV (7.4 - 10.4 FL) 9.3 Gran % (42.2 - 75.2 %) 62.6 Lymphocytes % (20.5 - 51.1 %) 22.7 Monocytes % (1.7 - 9.3 %) 12.3 H Eosinophils % (0 - 5 %) 2.0 Basophils % (0.0 - 2.0 %) 0.4 Absolute Granulocytes (1.4 - 6.5 /CUMM) 4.3 Absolute Lymphocytes (1.2 - 3.4 /CUMM) 1.6 Absolute Monocytes (0.10 - 0.60 /CUMM) 0.8 H Absolute Eosinophils (0.0 - 0.7 /CUMM) 0.1 Absolute Basophils (0.0 - 0.2 /CUMM) 0 Toxicology Valproic Acid (50 - 120 ug/mL) < 10.0 L Urines Urine Color (YEL,AMB,STR) YEL Urine Clarity (CLEAR) CLEAR Urine pH (5.0 - 8.0) 6.0 Ur Specific [place] (1.001 - 1.035) 1.015 Urine Protein (NEG,<30 MG/DL) TRACE H Urine Ketones (NEG) NEG Urine Nitrite (NEG) NEG Urine Bilirubin (NEG) NEG Urine Urobilinogen (0.1 - 1.0 EU/dl) 0.2 Ur Leukocyte Esterase (NEG) NEG Ur Microscopic SEDIMENT EXAMINED Urine RBC (0 - 5 /HPF) RARE Ur Epithelial Cells (NONE,FEW) RARE Urine Mucus (FEW,NONE) RARE Urine Hemoglobin (NEG) NEG Urine Glucose (N MG/DL) NEG Diagnostic Data EKG Results EKG tracing is independently reviewed, and revealed ventricular paced rhythm at a rate of 82 CXR Results Bilateral pleural effusions. The pleural effusion volume similar, moderate in volume, to the chest x-ray 07/03/2017. The smaller left pleural effusion is new since the prior chest x-ray. No significant pulmonary vascular congestion. Other Results CT scan of the abdomen and pelvis: 1. Moderate volume of abdominal ascites. 2. Generalized anasarca. 3. Bilateral pleural effusions. 4. Bibasilar consolidation/atelectasis. 5. Status post median sternotomy. Status post aortic and mitral valve repair. Epicardial pacemaker leads the generator in the upper abdomen. 6. No acute change of bowel. Intact surgical suture line at the sigmoid colon. Echocardiogram 06/26/17: 1. A bioprosthetic aortic valve is present which appears to be functioning normally. 2. Bioprosthetic mitral valve is present was also appears to be functioning normally. 3. There is no significant pericardial fluid present. 4. The left ventricular chamber size is normal. There is global hypokinesia present. The ejection fraction is approximately 25-30%. Flattening of the ventricular septum is present consistent with the presence of pulmonary hypertension. 5. Mild enlargement of the right heart chambers is present. Mild to moderate tricuspid and pulmonic insufficiency are present. The estimated right ventricular systolic pressure is approximate 40 mmHg. 6. A MUGA scan would be useful in this patient to better assess left ventricular systolic function. MUGA scan 06/26/17: Diffuse hypokinesia and decreased ejection fraction measured at 39%. 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 He presents with evidence of acute on chronic HFrEF. He is noted to have evidence of hypothyroidism on blood tests. Myocardial infarction has been ruled out with negative troponin. Recommendations: * Increase Lasix to 60 mg IV every 12 hours * Monitor input and output with daily weights * Check basic metabolic profile daily * Treatment of hypothyroidism as per endocrinology * No need to repeat echocardiogram at this time Consult Acknowledgment - Thank you for your consult request.
[2017-08-15 14:52] VITALS: BP 110/76
--- NOTE | 2017-08-15 18:38 | Cons- Endocrinology ---
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 As per patient, since 2006, he has been feeling fatigued and depressed. His mother had thyroid disorder. The blood work showed TSH 82.5, free T4 0.30 and TT3 0.72. His anti TG was 102 and anti TPO was < 28. Allergies/Medications Allergies: Coded Allergies: No Known Allergies (06/30/17) Home Med List: Aspirin (Ecotrin*) 325 MG TABLET.DR 1 TAB PO DAILY HEART (Reported) Atorvastatin Calcium 40 MG TABLET 1 TAB PO 1700 CHOLESTEROL (Reported) Divalproex Sodium 250 MG TABLET.DR 1 TAB PO DAILY MENTAL HEALTH (Reported) Escitalopram Oxalate (Lexapro) 20 MG TABLET 1 TAB PO DAILY MENTAL HEALTH ( Reported) Furosemide (Lasix) 40 MG TABLET 1 TAB PO BID CHF . Lisinopril 2.5 MG TABLET 1 TAB PO DAILY htn (Reported) Metoprolol Tartrate 25 MG TABLET 0.5 TAB PO BID HEART/BP (Reported) Review of Systems Review of Systems Constitutional: Reports: see HPI, malaise. Cardiovascular: Reports: peripheral edema. Respiratory: Reports: short of breath. Hematologic/Endocrine: Reports: see HPI (fatigue). 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 Home Who Do You Live With? spouse Services at Home: None Primary Language: Nepalese Smoking Status: Never Smoked ETOH Use: denies use Illicit Drug Use: denies illicit drug use Functional Ability ADLs Independent: dressing, eating, toileting, bathing. Ambulation: cane Exam & Diagnostic Data Last 24 Hrs of Vital Signs/I&O Vital Signs Date Time Temp Pulse Resp B/P B/P Pulse O2 O2 Flow FiO2 Mean Ox Delivery Rate 08/15 1452 97.5 76 16 110/76 97 Nasal Cannula 08/15 1004 74 108/70 08/15 0800 94 Nasal 2.0L Cannula 08/15 0708 97.5 82 16 114/62 97 Nasal 2.0L Cannula 08/14 2252 Nasal 2.0L Cannula 08/14 2231 97.5 81 16 130/72 97 08/14 2047 98.5 79 21 136/74 98 08/14 1929 97.8 81 18 129/82 100 Nasal 2.0L Cannula Intake & Output 08/15 1600 08/15 0800 08/15 0000 Intake Total 600 120 400 Output Total 7742 931 9407 Balance -780 -80 -925 Intake, Oral 600 120 400 Number 0 0 Bowel Movements Output, Urine 3138 581 4792 Patient 223 lb Weight Weight Bed scale Measurement Method Physical Exam General Appearance: no apparent distress Neck: normal inspection Respiratory: decreased breath sounds Cardiovascular: regular rate/rhythm Extremities: swelling Labs/Yoan Results: Laboratory Tests 08/15 08/15 0638 0040 Chemistry Sodium (137 - 145 mmol/L) 140 Potassium (3.5 - 5.1 mmol/L) 4.2 Chloride (98 - 107 mmol/L) 104 Carbon Dioxide (22 - 30 mmol/L) 27 Anion Gap (5 - 16) 9 BUN (9 - 20 mg/dL) 32 H Creatinine (0.7 - 1.2 mg/dL) 1.7 H Estimated GFR (>60 ml/min) 39 L BUN/Creatinine Ratio (7 - 25 %) 18.8 Iron (49 - 181 ug/dL) 75 TIBC (261 - 462 ug/dL) 293 Ferritin (17.9 - 464 ng/mL) 146.0 Troponin I (<0.11 ng/ml) 0.02 0.02 Vitamin B12 (239 - 931 pg/mL) 430 Folate (2.76 - 20.0 ng/mL) 19.5 TSH (0.270 - 4.200 uIU/mL) 82.500 H Free T4 (0.85 - 1.93 ng/dL) 0.30 L Total T3 (0.97 - 1.69 ng/mL) 0.72 L Cortisol AM Sample (4.46 - 22.7 ug/dL) 11.8 Hematology CBC w Diff MAN DIFF ORDERED WBC (4.8 - 10.8 /CUMM) 5.6 RBC (4.70 - 6.10 /CUMM) 3.10 L Hgb (14.0 - 18.0 G/DL) 10.2 L Hct (42 - 52 %) 31.3 L MCV (80.0 - 94.0 FL) 100.9 H MCH (27.0 - 31.0 PG) 32.8 H MCHC (33.0 - 37.0 G/DL) 32.5 L RDW (11.5 - 14.5 %) 19.7 H Plt Count (130 - 400 /CUMM) 96 L MPV (7.4 - 10.4 FL) 9.4 Gran % (42.2 - 75.2 %) 54.6 Lymphocytes % (20.5 - 51.1 %) 27.0 Monocytes % (1.7 - 9.3 %) 14.7 H Eosinophils % (0 - 5 %) 3.0 Basophils % (0.0 - 2.0 %) 0.7 Absolute Granulocytes (1.4 - 6.5 /CUMM) 3.0 Segmented Neutrophils (42.2 - 75.2 %) 54 Absolute Lymphocytes (1.2 - 3.4 /CUMM) 1.5 Lymphocytes (20.5 - 51.1 %) 27 Monocytes (1.7 - 9.3 %) 15 H Absolute Monocytes (0.10 - 0.60 /CUMM) 0.8 H Eosinophils (0 - 5.0 %) 4 Absolute Eosinophils (0.0 - 0.7 /CUMM) 0.2 Absolute Basophils (0.0 - 0.2 /CUMM) 0 Platelet Estimate (ADEQUATE) DECREASED Poikilocytosis FEW Basophilic Stippling SLIGHT Anisocytosis 1+ Macrocytic Cells FEW Immunology Thyroglobulin Antibody (< 61 U/mL) 102 H Thyroid Peroxidase Ab (< 61 U/mL) < 28 Assessment/Plan Assessment/Plan 81-year-old male with past medical history of CHF with reduced ejection fraction (25-30%), coronary artery disease status post stent, hypertension, AVR, 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 Plan: 1. start Levothyroxine 25 mcg daily today; 2. increase Levothyroxine to 50 mcg daily on 08/17 if he tolerates Levothyroxine 25 mcg daily well; 3. over the next 4-6 weeks, levothyroxine will be gradually increased to the target dose; 4. recommend having a repeat TSH, free T4 and TT3 done in one week to look for a trend. 5. will obtain thyroid u/s as outpatient. will follow Consult Acknowledgment - Thank you for your consult request.
[2017-08-15 18:50] VITALS: BP 98/60
[2017-08-15 21:18] VITALS: BP 110/72
[2017-08-16 06:16] VITALS: BP 100/50
[2017-08-16 07:55] LABS: ABSOLUTE BASOPHIL COUNT 0 /CUMM (0.0-0.2); ABSOLUTE EOSINOPHIL COUNT 0.2 /CUMM (0.0-0.7); ABSOLUTE GRANULOCYTE CT 2.7 /CUMM (1.4-6.5); ABSOLUTE LYMPH COUNT 1.5 /CUMM (1.2-3.4); ABSOLUTE MONOCYTE COUNT 0.8 /CUMM (0.10-0.60); BASOPHIL % 0.6 % (0.0-2.0); EOSINOPHIL % 4.1 % (0-5); GRANULOCYTE % 52.2 % (42.2-75.2); HEMATOCRIT 30.4 % (42-52); MEAN CORPUSCULAR HGB 33.8 PG (27.0-31.0); MEAN CORPUSCULAR HGB CONC 33.9 G/DL (33.0-37.0); MEAN CORPUSCULAR VOLUME 99.9 FL (80.0-94.0); MEAN PLATELET VOLUME 9.4 FL (7.4-10.4); PLATELET COUNT 100 /CUMM (130-400); RED BLOOD CELL CT 3.04 /CUMM (4.70-6.10); WHITE BLOOD CELL COUNT 5.2 /CUMM (4.8-10.8)
--- NOTE | 2017-08-16 10:20 | PN- Endocrinology ---
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 Blood work showed profound hypothyroidism which is due to Ina's thyroiditis. He was started on Levothyroxine 25 mcg daily on 08/15/2017; He denied having any palpitation. Plan: 1. increase Levothyroxine to 50 mcg daily on 08/17/2017; 2. over the next 4-6 weeks, levothyroxine will be gradually increased to the target dose; 3. recommend having a repeat TSH, free T4 and TT3 done in one week to look for a trend. 4. will obtain thyroid u/s as outpatient. will follow Subjective Subjective: He feels better. Objective Last 24 Hrs of Vital Signs/I&O Vital Signs Date Time Temp Pulse Resp B/P B/P Pulse O2 O2 Flow FiO2 Mean Ox Delivery Rate 08/16 0831 79 108/62 08/16 0616 97.7 79 16 100/50 97 08/16 0000 Nasal 2.0L Cannula 08/15 2118 98.2 79 16 110/72 98 Nasal Cannula 08/15 2044 80 18 90/62 08/15 1850 80 20 98/60 08/15 1600 Nasal 2.0L Cannula 08/15 1452 97.5 76 16 110/76 97 Nasal Cannula Intake & Output 08/16 1600 08/16 0800 08/16 0000 Intake Total 110 120 Output Total 275 800 Balance -165 -680 Intake, Oral 110 120 Output, Urine 275 800 Patient 215 lb Weight Results Pertinent Lab/Yoan Results: Laboratory Tests 08/16 0651 Chemistry Sodium (137 - 145 mmol/L) 139 Potassium (3.5 - 5.1 mmol/L) 4.3 Chloride (98 - 107 mmol/L) 102 Carbon Dioxide (22 - 30 mmol/L) 29 Anion Gap (5 - 16) 8 BUN (9 - 20 mg/dL) 34 H Creatinine (0.7 - 1.2 mg/dL) 1.6 H Estimated GFR (>60 ml/min) 42 L BUN/Creatinine Ratio (7 - 25 %) 21.3 Free T4 (0.85 - 1.93 ng/dL) 0.38 L TSH &T3 &Free T4 Intrp (0.27 - 4.20 uIU/mL) 86.600 H Hematology CBC w Diff NO MAN DIFF REQ WBC (4.8 - 10.8 /CUMM) 5.2 RBC (4.70 - 6.10 /CUMM) 3.04 L Hgb (14.0 - 18.0 G/DL) 10.3 L Hct (42 - 52 %) 30.4 L MCV (80.0 - 94.0 FL) 99.9 H MCH (27.0 - 31.0 PG) 33.8 H MCHC (33.0 - 37.0 G/DL) 33.9 RDW (11.5 - 14.5 %) 20.0 H Plt Count (130 - 400 /CUMM) 100 L MPV (7.4 - 10.4 FL) 9.4 Gran % (42.2 - 75.2 %) 52.2 Lymphocytes % (20.5 - 51.1 %) 28.3 Monocytes % (1.7 - 9.3 %) 14.8 H Eosinophils % (0 - 5 %) 4.1 Basophils % (0.0 - 2.0 %) 0.6 Absolute Granulocytes (1.4 - 6.5 /CUMM) 2.7 Absolute Lymphocytes (1.2 - 3.4 /CUMM) 1.5 Absolute Monocytes (0.10 - 0.60 /CUMM) 0.8 H Absolute Eosinophils (0.0 - 0.7 /CUMM) 0.2 Absolute Basophils (0.0 - 0.2 /CUMM) 0
--- NOTE | 2017-08-16 11:12 | PN- Cardiology ---
Subjective Subjective: Doing oK today. Respiratory status stable. Persistent LE edema. Overall feels better. Objective Vital Signs and I&Os Vital Signs Date Time Temp Pulse Resp B/P B/P Pulse O2 O2 Flow FiO2 Mean Ox Delivery Rate 08/16 0831 79 108/62 08/16 0800 98 Nasal 2.0L Cannula 08/16 0616 97.7 79 16 100/50 97 08/16 0000 Nasal 2.0L Cannula 08/15 2118 98.2 79 16 110/72 98 Nasal Cannula 08/15 2044 80 18 90/62 08/15 1850 80 20 98/60 08/15 1600 Nasal 2.0L Cannula 08/15 1452 97.5 76 16 110/76 97 Nasal Cannula Intake & Output 08/16 1600 08/16 0800 08/16 0000 08/15 1600 08/15 0800 08/15 0000 Intake Total 110 120 600 120 400 Output Total 550 944 586 0204 200 1325 Balance -550 -165 -680 -780 -80 -925 Intake, Oral 110 120 600 120 400 Number 0 0 Bowel Movements Output, Urine 550 841 780 5538 200 1325 Patient 215 lb 223 lb Weight Weight Bed scale Measurement Method Physical Exam: General: The patient is in no acute distress HEENT: Normal nose, ears, and oropharynx. Pupils equal bilaterally. Conjunctiva normal. Neck: Supple with no JVD, no masses, and no thyromegaly, carotids normal Lungs:Scattered rhonchi Heart: RRR, S1, S2, 2/6 systolic murmur. Abdomen: Soft, nontender, no masses. No hepatomegaly. No splenomegaly Extremities: No clubbing or cyanosis. 1-2+ bilateral edema Skin: Normal skin turgor with no skin ulcers or lesions noted. Neuro: Cranial nerves intact. Sensation intact Psych: Alert and oriented x 3 with appropriate affect Current Medications: Current Medications Sig/Xochitl Start time Last Medication Dose Route Stop Time Status Admin Acetaminophen 650 MG Q6P PRN 08/15 0500 AC 08/15 PO 1836 Aspirin Buffered 325 MG DAILY 08/15 09 AC 08/16 PO 0831 Atorvastatin Calcium 40 MG 1700 08/15 1700 AC 08/15 PO 1602 Divalproex Sodium 250 MG DAILY 08/15 899 AC 08/16 PO 0831 Escitalopram Oxalate 20 MG DAILY 08/15 899 AC 08/16 PO 0831 Furosemide 60 MG 7:30 AM, & 4:30 PM 08/15 1630 AC 08/16 IV 0831 Furosemide 20 MG ONCE ONE 08/15 1630 DC 08/15 IV 08/15 1631 1850 Furosemide 40 MG 7:30 AM, & 4:30 PM 08/15 0730 DC 08/15 IV 1553 Levothyroxine Sodium 0.05 MG DAILY AC 08/17 0700 AC PO Levothyroxine Sodium 0.025 MG DAILY AC 08/15 1357 DC 08/16 PO 0612 Metoprolol Tartrate 12.5 MG BID 08/15 0900 AC 08/16 PO 0831 Patient Medication 1 ED ONE ONE 08/15 1630 ND Teaching ED 08/15 1631 Results Last 48 Hrs of Labs/Mics: Laboratory Tests 08/16/17 0651: Anion Gap 8, Estimated GFR 42 L, BUN/Creatinine Ratio 21.3, Free T4 0.38 L, TSH &T3 &Free T4 Intrp 86.600 H, CBC w Diff NO MAN DIFF REQ, RBC 3.04 L, MCV 99.9 H, MCH 33.8 H, MCHC 33.9, RDW 20.0 H, MPV 9.4, Gran % 52.2, Lymphocytes % 28.3, Monocytes % 14.8 H, Eosinophils % 4.1, Basophils % 0.6, Absolute Granulocytes 2.7, Absolute Lymphocytes 1.5, Absolute Monocytes 0.8 H, Absolute Eosinophils 0.2, Absolute Basophils 0 08/15/17 0638: Anion Gap 9, Estimated GFR 39 L, BUN/Creatinine Ratio 18.8, Troponin I 0.02, Free T4 0.30 L, Total T3 0.72 L, Cortisol AM Sample 11.8, CBC w Diff MAN DIFF ORDERED, RBC 3.10 L, MCV 100.9 H, MCH 32.8 H, MCHC 32.5 L, RDW 19.7 H, MPV 9.4, Gran % 54.6, Lymphocytes % 27.0, Monocytes % 14.7 H, Eosinophils % 3.0, Basophils % 0.7, Absolute Granulocytes 3.0, Segmented Neutrophils 54, Absolute Lymphocytes 1.5, Lymphocytes 27, Monocytes 15 H, Absolute Monocytes 0.8 H, Eosinophils 4, Absolute Eosinophils 0.2, Absolute Basophils 0, Platelet Estimate DECREASED, Poikilocytosis FEW, Basophilic Stippling SLIGHT, Anisocytosis 1+, Macrocytic Cells FEW, Thyroglobulin Antibody 102 H, Thyroid Peroxidase Ab < 28 08/15/17 0040: Iron 75, TIBC 293, Ferritin 146.0, Troponin I 0.02, Vitamin B12 430, Folate 19.5 , TSH 82.500 H 08/14/17 1812: Urine Color YEL, Urine Clarity CLEAR, Urine pH 6.0, Ur Specific [place] 1.015, Urine Protein TRACE H, Urine Ketones NEG, Urine Nitrite NEG, Urine Bilirubin NEG, Urine Urobilinogen 0.2, Ur Leukocyte Esterase NEG, Ur Microscopic SEDIMENT EXAMINED, Urine RBC RARE, Ur Epithelial Cells RARE, Urine Mucus RARE, Urine Hemoglobin NEG, Urine Glucose NEG 08/14/17 1600: Anion Gap 11, Estimated GFR 39 L, BUN/Creatinine Ratio 20.6, Glucose 82, Calcium 8.4, Total Bilirubin 0.7, AST 28, ALT 28, Alkaline Phosphatase 92, Troponin I 0.02, Mam-S-Lfdnokeztvz Pept 82444 H, Total Protein 8.0, Albumin 3.3 L, Globulin 4.7 H, Albumin/Globulin Ratio 0.7 L, Amylase 181 H, Lipase 104, CBC w Diff NO MAN DIFF REQ, RBC 3.16 L, MCV 101.3 H, MCH 33.0 H, MCHC 32.6 L , RDW 19.5 H, MPV 9.3, Gran % 62.6, Lymphocytes % 22.7, Monocytes % 12.3 H, Eosinophils % 2.0, Basophils % 0.4, Absolute Granulocytes 4.3, Absolute Lymphocytes 1.6, Absolute Monocytes 0.8 H, Absolute Eosinophils 0.1, Absolute Basophils 0, Valproic Acid < 10.0 L Assessment/Plan Assessment/Plan Assessment: 1. Acute on chronic HFrEF 2. Cardiomyopathy with EF of 35-40% 3. Status post AVR, MVR, Aortic root repair 4. PPM 5. Hypothyroidism Recommendations: - COntinue diuresis with IV lasix - Continue to monitor I/Os and weights. - Followup labs pending - NO need to repear echo at the present time - Continue as per endocrinology. - Encourage patient to maintain leg elevation. - Please have patient fitted for support stockings Continue telemetry? Yes
--- NOTE | 2017-08-16 13:19 | PN- Housestaff ---
Orion SORIA,[facility] 08/16/17 1319: Subjective Follow-up For: Decompensated congestive heart failure with ejection fraction 30-35% Decompensated congestive heart failure with ejection fraction 30-35% Subjective: Patient was seen and examined this morning, no overnight events, diuresed well almost 2 liters. Patient reported improvement of his breathing. Review of Systems Constitutional: Reports: see HPI. Objective Last 24 Hrs of Vital Signs/I&O Vital Signs Date Time Temp Pulse Resp B/P B/P Pulse O2 O2 Flow FiO2 Mean Ox Delivery Rate 08/16 1458 98.5 80 16 102/60 98 Nasal Cannula 08/16 0831 79 108/62 08/16 0800 98 Nasal 2.0L Cannula 08/16 0616 97.7 79 16 100/50 97 08/16 0000 Nasal 2.0L Cannula 08/15 2118 98.2 79 16 110/72 98 Nasal Cannula 08/15 2044 80 18 90/62 08/15 1850 80 20 98/60 08/15 1600 Nasal 2.0L Cannula Intake & Output 08/16 1600 08/16 0800 08/16 0000 Intake Total 320 110 120 Output Total 1450 275 800 Balance -1130 -165 -680 Intake, IV 20 Intake, Oral 300 110 120 Output, Urine 1450 275 800 Patient 97.296 kg Weight Physical Exam General Appearance: Alert, Oriented X3, Cooperative, No Acute Distress Skin: No Rashes, No Breakdown Skin Temp/Moisture Exam: Warm/Dry HEENT: Atraumatic, PERRLA, EOMI, Mucous Membr. moist/pink Neck: Supple Cardiovascular: Regular Rate, Normal S1, Normal S2, No Murmurs Lungs: bilateral basal crackles improved Abdomen: Normal Bowel Sounds, Soft, No Tenderness Neurological: Normal Gait, Normal Speech, Strength at 5/5 X4 Ext, Normal Tone, Sensation Intact, Cranial Nerves 3-12 NL, Reflexes 2+ Extremities: No Clubbing, No Cyanosis, Normal Pulses, +1 bilateral pedal edema Current Medications: Current Medications Sig/Xochitl Start time Last Medication Dose Route Stop Time Status Admin Acetaminophen 650 MG Q6P PRN 08/15 0500 AC 08/15 PO 1836 Aspirin Buffered 325 MG DAILY 08/15 0900 AC 08/16 PO 0831 Atorvastatin Calcium 40 MG 1700 08/15 1700 AC 08/15 PO 1602 Divalproex Sodium 250 MG DAILY 08/15 0900 AC 08/16 PO 0831 Escitalopram Oxalate 20 MG DAILY 08/15 0900 AC 08/16 PO 0831 Furosemide 60 MG 7:30 AM, & 4:30 PM 08/15 1630 AC 08/16 IV 0831 Furosemide 20 MG ONCE ONE 08/15 1630 DC 08/15 IV 08/15 1631 1850 Furosemide 40 MG 7:30 AM, & 4:30 PM 08/15 0730 DC 08/15 IV 1553 Levothyroxine Sodium 0.05 MG DAILY AC 08/17 0700 AC PO Levothyroxine Sodium 0.025 MG DAILY AC 08/15 1357 DC 08/16 PO 0612 Metoprolol Tartrate 12.5 MG BID 08/15 0900 AC 08/16 PO 0831 Patient Medication 1 ED ONE ONE 08/15 1630 DC Teaching ED 08/15 1631 Last 24 Hrs of Lab/Yoan Results Last 24 Hrs of Labs/Mics: Laboratory Tests 08/16/17 0651: Anion Gap 8, Estimated GFR 42 L, BUN/Creatinine Ratio 21.3, Free T4 0.38 L, TSH &T3 &Free T4 Intrp 86.600 H, CBC w Diff NO MAN DIFF REQ, RBC 3.04 L, MCV 99.9 H, MCH 33.8 H, MCHC 33.9, RDW 20.0 H, MPV 9.4, Gran % 52.2, Lymphocytes % 28.3, Monocytes % 14.8 H, Eosinophils % 4.1, Basophils % 0.6, Absolute Granulocytes 2.7, Absolute Lymphocytes 1.5, Absolute Monocytes 0.8 H, Absolute Eosinophils 0.2, Absolute Basophils 0 Assessment/Plan Assessment: Mr. Townsend is a 81-year-old male with an extensive PMH with a recent recent admission (06/22/17-06/28/17) for acute CHF exacerbation and an ECHO (05/2017) that showed a worsening EF of 25-30% (previous at [facility] 60%) and pulmonary hypertension. Problem list Acute hypoxic respiratory failure Acute on chronic CHF EF30-35% Acute kidney injury on CK D stage III Bilateral pleural effusion and moderate amount ascites Thrambocytopenia Macrocytic anemia profound hypothyrodism Plan -Continue Lasix 60 twice a day, maintain strict ins and outs measurement -No need for echocardiogram, last echocardiogram May 2017 revealed left ventricular ejection fraction of 39% -Cardiology recommendation pending -TSH is elevated, free T4 and 3 are elevated, EPO negative however antithyroglobulin antibodies positive. Endocrine consultation was obtained and thought process is Ina thyroiditis. Patient was initially started on levothyroxine 25 MCG that was increased to 50 MCG. Patient tolerating medication well. Plans to repeat thyroid function test within 1 week. Thyroid ultrasound as an outpatient. Plan to increase levothyroxine gradually within the next 2-4 weeks. -Vitals every shift -Peripheral smear setting of microcytic anemia WNL. Mostly hypothyroid induced macrocytic anemia -DVT prophylaxis FOR thrombocytopenia -Code full -Diet congestive heart failure Problem List: 1. CHF exacerbation Pain Ratin Pain Location: N/A Pain Goal: Pain 4 or less Pain Plan: see medication Tomorrow's Labs & Rationales: CBC, BEP RaeMaame starr 08/16/17 1329: Attending MD Review Statement Attending Statement Attending MD Statement: examined this patient, discuss w/resident/PA/OUTREACH COORDINATOR, agreed w/resident/PA/OUTREACH COORDINATOR, discussed with family, reviewed EMR data (avail), discussed with nursing, discussed with case mgmt, reviewed images, amended to note Attending Assessment/Plan: Patient seen/examined bedside. Patient with h/o CHF comes with progressive worsening of shortness of breath from acute on chronic CHF exacerbation. Patient continue iv diuretics and monitor I/O, daily weights. Cardiology f/u. Optimize cardiac meds for heart failure. Creatinine 1.6, tolerating lasix for now. Monitor kidney functions. Replace electrolytes as needed. gi/dvt prophylaxis
[2017-08-16 14:58] VITALS: BP 102/60
[2017-08-16 21:39] VITALS: BP 106/64
[2017-08-17 06:32] VITALS: BP 124/78
--- NOTE | 2017-08-17 07:33 | PN- Housestaff ---
See Addendum Subjective Follow-up For: Decompensated congestive heart failure with ejection fraction 30-35% Decompensated congestive heart failure with ejection fraction 30-35% Subjective: Patient was seen and examined this morning, no overnight events, I/O negative by 2270. Patient reported improvement of his breathing, sat 95% on room air. Review of Systems Constitutional: Reports: see HPI. Objective Last 24 Hrs of Vital Signs/I&O Vital Signs Date Time Temp Pulse Resp B/P B/P Pulse O2 O2 Flow FiO2 Mean Ox Delivery Rate 08/17 0820 79 110/70 08/17 0800 95 Room Air Room Air 08/17 0632 98.1 72 20 124/78 95 Room Air 08/16 2139 97.8 80 18 106/64 93 Room Air 08/16 2125 76 106/64 08/16 1458 98.5 80 16 102/60 98 Nasal Cannula Intake & Output 08/17 1600 08/17 0800 08/17 0000 Intake Total 120 Output Total 1150 975 Balance -1030 -975 Intake, Oral 120 Output, Urine 1150 975 Patient 97.125 kg Weight Weight Bed scale Measurement Method Physical Exam General Appearance: Alert, Oriented X3, Cooperative, No Acute Distress Skin: No Rashes, No Breakdown, No Significant Lesion Skin Temp/Moisture Exam: Warm/Dry HEENT: Atraumatic, PERRLA, EOMI, Mucous Membr. moist/pink Neck: Supple, No JVD Cardiovascular: Regular Rate, Normal S1, Normal S2, No Murmurs Lungs: Clear to Auscultation, Normal Air Movement Abdomen: Normal Bowel Sounds, Soft, No Tenderness, No Hepatospenomegaly, No Masses Neurological: Normal Speech, Strength at 5/5 X4 Ext, Normal Tone, Sensation Intact, Cranial Nerves 3-12 NL, Reflexes 2+ Extremities: No Clubbing, No Cyanosis, No Edema, No Tenderness/Swelling, bilateral pedal edema +1 Assessment/Plan Assessment: Mr. Townsend is a 81-year-old male with an extensive PMH with a recent recent admission (06/22/17-06/28/17) for acute CHF exacerbation and an ECHO (05/2017) that showed a worsening EF of 25-30% (previous at [facility] 60%) and pulmonary hypertension. Problem list Acute hypoxic respiratory failure Acute on chronic CHF EF30-35% Acute kidney injury on CK D stage III Bilateral pleural effusion and moderate amount ascites Thrambocytopenia Macrocytic anemia profound hypothyrodism Plan -Continue Lasix 60 twice a day, maintain strict ins and outs measurement -No need for echocardiogram, last echocardiogram May 2017 revealed left ventricular ejection fraction of 39% -Cardiology recommendation, thanks for recommendation -TSH is elevated, free T4 and 3 are elevated, EPO negative however antithyroglobulin antibodies positive. Endocrine consultation was obtained and thought process is Ina thyroiditis. Patient was initially started on levothyroxine 25 MCG that was increased to 50 MCG. Patient tolerating medication well. Plans to repeat thyroid function test within 1 week. Thyroid ultrasound as an outpatient. Plan to increase levothyroxine gradually within the next 2-4 weeks. -Peripheral smear setting of microcytic anemia WNL. Mostly hypothyroid induced macrocytic anemia -Vitals every shift -Keep leg elevated -DVT prophylaxis FOR thrombocytopenia -Code full -Diet congestive heart failure Problem List: 1. CHF exacerbation Pain Ratin Pain Location: n/a Pain Goal: Pain 4 or less Pain Plan: see medication Tomorrow's Labs & Rationales: BEP
--- NOTE | 2017-08-17 08:42 | PN- Cardiology ---
Subjective Subjective: The patient is feeling somewhat better, however he may remains short of breath. No chest pain. No palpitations. He continues to have lower extremity edema. No nausea or vomiting. No diaphoresis. Objective Vital Signs and I&Os Vital Signs Date Time Temp Pulse Resp B/P B/P Pulse O2 O2 Flow FiO2 Mean Ox Delivery Rate 08/18 819 79 110/70 08/17 0800 95 Room Air Room Air 08/17 0632 98.1 72 20 124/78 95 Room Air 08/16 2139 97.8 80 18 106/64 93 Room Air 08/16 2125 76 106/64 08/16 1458 98.5 80 16 102/60 98 Nasal Cannula Intake & Output 08/17 1600 08/17 0800 08/17 0000 08/16 1600 08/16 0808/16 0000 Intake Total 120 320 110 120 Output Total 3440 096 0351 275 800 Balance -1030 -975 -1130 -165 -680 Intake, IV 20 Intake, Oral 120 300 110 120 Output, Urine 6200 106 6165 275 800 Patient 214 lb 215 lb Weight Weight Bed scale Measurement Method Physical Exam: General: The patient is in no acute distress HEENT: Normal nose, ears, and oropharynx. Pupils equal bilaterally. Conjunctiva normal. Neck: Supple with no JVD, no masses, and no thyromegaly, carotids normal Lungs:Scattered rhonchi Heart: RRR, S1, S2, 2/6 systolic murmur. Abdomen: Soft, nontender, no masses. No hepatomegaly. No splenomegaly Extremities: No clubbing or cyanosis. 1-2+ bilateral edema Skin: Normal skin turgor with no skin ulcers or lesions noted. Neuro: Cranial nerves intact. Sensation intact Psych: Alert and oriented x 3 with appropriate affect Current Medications: Current Medications Sig/Xochitl Start time Last Medication Dose Route Stop Time Status Admin Acetaminophen 650 MG Q6P PRN 08/15 0500 AC 08/15 PO 1836 Aspirin Buffered 325 MG DAILY 08/15 09 AC 08/17 PO 0820 Atorvastatin Calcium 40 MG 1700 08/15 1700 AC 08/16 PO 1702 Divalproex Sodium 250 MG DAILY 08/15 09 AC 08/17 PO 0820 Escitalopram Oxalate 20 MG DAILY 08/15 09 AC 08/17 PO 0820 Furosemide 60 MG 7:30 AM, & 4:30 PM 08/15 1630 AC 08/17 IV 0820 Levothyroxine Sodium 0.05 MG DAILY AC 08/17 0700 AC 08/17 PO 0615 Levothyroxine Sodium 0.025 MG DAILY AC 08/15 1357 DC 08/16 PO 0612 Metoprolol Tartrate 12.5 MG BID 08/15 0900 AC 08/17 PO 0820 Results Last 48 Hrs of Labs/Mics: Laboratory Tests 08/17/17 0621: Sodium Pending, Potassium Pending, Chloride Pending, Carbon Dioxide Pending, Anion Gap Pending, BUN Pending, Creatinine Pending, BUN/Creatinine Ratio Pending 08/16/17 0651: Anion Gap 8, Estimated GFR 42 L, BUN/Creatinine Ratio 21.3, Free T4 0.38 L, TSH &T3 &Free T4 Intrp 86.600 H, CBC w Diff NO MAN DIFF REQ, RBC 3.04 L, MCV 99.9 H, MCH 33.8 H, MCHC 33.9, RDW 20.0 H, MPV 9.4, Gran % 52.2, Lymphocytes % 28.3, Monocytes % 14.8 H, Eosinophils % 4.1, Basophils % 0.6, Absolute Granulocytes 2.7, Absolute Lymphocytes 1.5, Absolute Monocytes 0.8 H, Absolute Eosinophils 0.2, Absolute Basophils 0 Assessment/Plan Assessment/Plan Assessment: 1. Acute on chronic HFrEF 2. Cardiomyopathy with EF of 35-40% 3. Status post AVR, MVR, Aortic root repair 4. PPM 5. Hypothyroidism Recommendations: * Continue diuresis with IV lasix * Continue to monitor I/Os and weights. * Check BMP daily Continue telemetry? Yes
--- NOTE | 2017-08-17 10:02 | Discharge Summary ---
Visit Information Visit Dates Admission Date: 08/16/17 Discharge Date: 08/18/17 Hospital Course Course Attending Physician: Maame Mbcride MD Primary Care Physician: Steve SORIA,[facility] Course: Mr. Townsend is a 81-year-old male with an extensive PMH with a recent admission (06/22/17-06/28/17) for acute CHF exacerbation and an ECHO (05/2017) that showed a worsening EF of 25-30% (previous at [facility] 60%) and pulmonary hypertension, presented to ED with chief complaint of worsening bilateral lower extremity swelling. Patient was admitted to telemetry floor for the following problems Problem list Acute hypoxic respiratory failure Acute on chronic CHF EF30-35% Acute kidney injury on CK D stage III Bilateral pleural effusion and moderate amount ascites Thrambocytopenia chronic Macrocytic anemia chronic profound hypothyrodism New diagnosis Patient was admitted to telemetry floor for acute on chronic CHF and treated with IV Lasix 60 twice daily, cardiac consultation was obtained, patient was maintained on daily weight and strict ins and outs and showed proper diuresis on IV Lasix. Part of the workup for CHF was TSH that was found to be markedly elevated 8 6.600 with reflex free T4 0.03, T3 0.72. Endocrine neurology consultation was obtained, patient was started on low-dose Synthroid 25 MCG, TPO antibody and antithyroglobulin antibody were obtained, TPO Ab negative however antithyroglobulin antibodies positive. Patient tolerated Synthroid well on the dose was increased to 50 MCG. Plans to repeat thyroid function test within 1 week with subsequent gradual increase in Synthroid dose in the next 2-4 weeks. Recommendation for thyroid ultrasound as an outpatient. Patient was also found to have microcytic anemia, peripheral smear was within normal, mostly hypothyroid induced microcytic anemia that should improve with Synthroid. Folic acid vitamin B12 within normal. -Echocardiogram was not obtained during this admission as his last echocardiogram was no May 2017 revealed left ventricular ejection fraction of 39%. Patient was discharged after he was medically optimized on Lasix 60 mg twice daily. Patient was educated to follow up with cardiology within 2 weeks, CHF clinic next Monday, endocrinology Dr. deluca within 1 week for repeat thyroid function and adjustment of thyroid medication. He was also educated about low- salt diet, support stocking and leg elevation. Patient reported understanding of the discharge instructions. He will be discharged home with home health services. Allergies: Coded Allergies: No Known Allergies (06/30/17) Disposition Summary Disposition Principal Diagnosis: Acute on chronic CHF exacerbation Additional Diagnosis: Hypothyroidism Discharge Disposition: home health services Discharge Instructions General Discharge Information Code Status: Full Code Patient's Diet: Congestive heart failure diet Patient's Activity: As tolerated Follow-Up Instructions/Appts: -Please foolow up with your PCP within one week after discharge -Please follow up with cardiology Dr. Howell within 2 weeks after discahrge -Please follow up with CHF clinic next week VERY INMPORTANT -Please maintain leg elevation and wear support stocking -Please follow up with Dr. Deluca endocrinology within 1 week after discharge to repeat thyroid function test Medications at Discharge Discharge Medications: Stop taking the following medications: Furosemide (Lasix) 40 MG TABLET ORAL TWICE DAILY Qty = 60 Lisinopril (Lisinopril) 2.5 MG TABLET ORAL DAILY Qty = 30 Continue taking these medications: Divalproex Sodium (Divalproex Sodium) 250 MG TABLET.DR Brown Tablet ORAL DAILY Comments: Last Taken: 08/17/17 Time: 8:00 AM Metoprolol Tartrate (Metoprolol Tartrate) 25 MG TABLET 0.5 Tablet ORAL TWICE DAILY Comments: Last Taken: 08/17/17 Time: 8:00 AM Escitalopram Oxalate (Lexapro) 20 MG TABLET 1 Tablet ORAL DAILY Comments: Last Taken: 08/17/17 Time: 8:00 AM Aspirin (Ecotrin*) 325 MG TABLET. 1 Tablet ORAL DAILY Comments: Last Taken: 08/18/17 Time: 8:00 AM Atorvastatin Calcium (Atorvastatin Calcium) 40 MG TABLET 1 Tablet ORAL 5 PM Qty = 30 Comments: Last Taken: 08/17/17 Time: 4:30 PM Start taking the following new medications: Furosemide (Furosemide) 20 MG TABLET 60 Milligram ORAL 7:30AM & 4:30PM Qty = 90 No Refills Comments: Last Taken: 08/18/17 Time: 8 AM RECIEVED IV LASIX IN HOSPITAL Levothyroxine Sodium (Synthroid) 50 MCG TABLET 0.05 Milligram ORAL DAILY BEFORE BREAKFAST Qty = 60 No Refills Comments: Last Taken: 08/18/17 Time: 6 AM Copies To: Steve SORIA,Jenny; Dante SORIA,Whitney Silva; Fermin SORIA,Jamia Attending MD Review Statement Documenting Attending: Maame Mcbride MD
[2017-08-17 14:56] VITALS: BP 112/64
[2017-08-17 21:56] VITALS: BP 114/72
[2017-08-18 07:13] VITALS: BP 112/74
[2017-08-18 07:41] VITALS: BP 112/74
--- NOTE | 2017-08-18 11:22 | PN- Cardiology ---
Subjective Subjective: Doing well. Respiratory status stable. Stable off oxygen supplementation. Anxious to go home. Discharge pending. Objective Vital Signs and I&Os Vital Signs Date Time Temp Pulse Resp B/P B/P Pulse O2 O2 Flow FiO2 Mean Ox Delivery Rate 08/18 0800 95 Room Air Room Air 08/18 0741 80 112/74 08/18 0713 97.7 80 18 112/74 97 Room Air 08/18 0000 95 Room Air 08/17 2156 97.4 78 18 114/72 95 Room Air 08/17 2034 80 102/62 08/17 1600 Room Air Room Air 08/17 1456 97.5 79 16 112/64 95 Intake & Output 08/18 1600 08/18 0800 08/18 0000 08/17 1600 08/17 0800 08/17 0000 Intake Total 220 840 500 120 Output Total 450 7972 501 2780 975 Balance -230 -510 -450 -1030 -975 Intake, Oral 220 840 500 120 Output, Urine 450 9422 [id number] Patient 207 lb 214 lb Weight Weight Bed scale Bed scale Measurement Method Physical Exam: General: The patient is in no acute distress HEENT: Normal nose, ears, and oropharynx. Pupils equal bilaterally. Conjunctiva normal. Neck: Supple with no JVD, no masses, and no thyromegaly, carotids normal Lungs:Scattered rhonchi Heart: RRR, S1, S2, 2/6 systolic murmur. Abdomen: Soft, nontender, no masses. No hepatomegaly. No splenomegaly Extremities: No clubbing or cyanosis. 1-2+ bilateral edema Skin: Normal skin turgor with no skin ulcers or lesions noted. Neuro: Cranial nerves intact. Sensation intact Psych: Alert and oriented x 3 with appropriate affect Current Medications: Current Medications Sig/Xochitl Start time Last Medication Dose Route Stop Time Status Admin Acetaminophen 650 MG Q6P PRN 08/15 0500 AC 08/15 PO 1836 Aspirin Buffered 325 MG DAILY 08/15 09 AC 08/18 PO 0741 Atorvastatin Calcium 40 MG 1700 08/15 1700 AC 08/17 PO 1636 Divalproex Sodium 250 MG DAILY 08/15 09 AC 08/18 PO 0741 Escitalopram Oxalate 20 MG DAILY 08/15 899 AC 08/18 PO 0741 Furosemide 40 MG 7:30 AM, & 4:30 PM 08/18 1630 CAN IV Furosemide 40 MG 7:30 AM, & 4:30 PM 08/18 1630 DC PO Furosemide 60 MG 7:30 AM, & 4:30 PM 08/18 1630 AC PO Furosemide 60 MG 7:30 AM, & 4:30 PM 08/15 1630 DC 08/18 IV 0741 Levothyroxine Sodium 0.05 MG DAILY AC 08/17 0700 AC 08/18 PO 0613 Magnesium Oxide 400 MG ONE ONE 08/18 0015 DC 08/18 PO 08/18 0016 0020 Metoprolol Tartrate 12.5 MG BID 08/15 0900 AC 08/18 PO 0741 Results Last 48 Hrs of Labs/Mics: Laboratory Tests 08/18/17 0615: Anion Gap 6, Estimated GFR 36 L, BUN/Creatinine Ratio 22.8 08/17/17 06: Anion Gap 8, Estimated GFR 42 L, BUN/Creatinine Ratio 23.8, Magnesium 1.8 Assessment/Plan Assessment/Plan Assessment: 1. Acute on chronic HFrEF 2. Cardiomyopathy with EF of 35-40% 3. Status post AVR, MVR, Aortic root repair 4. PPM 5. Hypothyroidism 6. Chronic renal insufficiency Recommendations: -Patient to be discharged home on oral Lasix 60 twice daily as discussed. - Continue to monitor I/Os and weights. - Followup labs to be checked at CHF clinic next week - NO need to repeat echo at the present time - Continue as per endocrinology. - Encourage patient to maintain leg elevation. - Please have patient fitted for support stockings prior to discharge Continue telemetry? No
[2017-08-18] MEDS ORDERED: SYNTHROID50 MCG PO (12:35)
[2017-08-18] MEDS ORDERED: FUROSEMIDE20 M1 PO (12:35)
--- NOTE | 2017-08-18 12:40 | Patient Discharge Instructions ---
Discharge Instructions General Discharge Information You were seen/treated for: Heart failure Thyroid problem Special Instructions: -Please foolow up with your PCP within one week after discharge -Please follow up with cardiology Dr. Howell within 2 weeks after discahrge -Please follow up with CHF clinic next week VERY INMPORTANT -Please maintain leg elevation and wear support stocking -Please follow up with Dr. Christensen endocrinology within 1 week after discharge to repeat thyroid function test Acute Coronary Syndrome Inclusion Criteria At DC or during hospital stay patient has or had the following: ACS DIAGNOSIS No Discharge Core Measures Meds if any: Prescribed or Continued at Discharge Meds if any: NOT Prescribed or Continued at Discharge Congestive Heart Failure Inclusion Criteria At DC or during hospital stay patient has or had the following: CHF DIAGNOSIS No Discharge Core Measures Meds if any: Prescribed or Continued at Discharge Meds if any: NOT Prescribed or Continued at Discharge Cerebrovascular accident Inclusion Criteria At DC or during hospital stay patient has or had the following: CVA/TIA Diagnosis No Discharge Core Measures Meds if any: Prescribed or Continued at Discharge Meds if any: NOT Prescribed or Continued at Discharge Venous thromboembolism Inclusion Criteria VTE Diagnosis No VTE Type NONE VTE Confirmed by (Test) NONE Discharge Core Measures - Per Current guidelines, there needs to be overlap - treatment for the first 5 days of Warfarin therapy. - If discharged on Warfarin prior to 5 days of - overlap therapy, the patient will need to be - assessed for post discharge needs including - *Post discharge parental anticoagulation - *Warfarin and/or parental anticoagulation education - *Follow up date to check INR post discharge At least 5 days overlap therapy as Inpatient No Meds if any: Prescribed or Continued at Discharge Note: Overlap Therapy is Warfarin and Anticoagulant Meds if any: NOT Prescribed or Continued at Discharge
--- NOTE | 2017-08-18 14:11 | PN- Housestaff ---
See Addendum Subjective Follow-up For: Decompensated congestive heart failure with ejection fraction 30-35% Decompensated congestive heart failure with ejection fraction 30-35% Subjective: Patient was seen and examined this morning, vital signs are stable, ins and outs reviewed. No overnight events. Review of Systems Constitutional: Reports: see HPI. Objective Last 24 Hrs of Vital Signs/I&O Vital Signs Date Time Temp Pulse Resp B/P B/P Pulse O2 O2 Flow FiO2 Mean Ox Delivery Rate 08/18 0800 95 Room Air Room Air 08/18 0741 80 112/74 08/18 0713 97.7 80 18 112/74 97 Room Air 08/18 0000 95 Room Air 08/17 2156 97.4 78 18 114/72 95 Room Air 08/17 2034 80 102/62 08/17 1600 Room Air Room Air Intake & Output 08/18 1600 08/18 0800 08/18 0000 Intake Total 220 840 Output Total 450 1350 Balance -230 -510 Intake, Oral 220 840 Output, Urine 450 1350 Patient 93.979 kg Weight Weight Bed scale Measurement Method Physical Exam General Appearance: Alert, Oriented X3, Cooperative, No Acute Distress Skin: No Rashes, No Breakdown, No Significant Lesion Skin Temp/Moisture Exam: Warm/Dry Sepsis Skin Exam (color): Normal for Ethnicity Neck: Supple Cardiovascular: Regular Rate, Normal S1, Normal S2, No Murmurs Lungs: Clear to Auscultation, Normal Air Movement Abdomen: Normal Bowel Sounds, Soft, No Tenderness, No Hepatospenomegaly, No Masses Neurological: Normal Speech, Strength at 5/5 X4 Ext, Normal Tone, Sensation Intact, Cranial Nerves 3-12 NL, Reflexes 2+ Extremities: No Clubbing, No Cyanosis, Normal Pulses, No Tenderness/Swelling, Bilateral trace pedal edema Current Medications: Current Medications Sig/Xochitl Start time Last Medication Dose Route Stop Time Status Admin Acetaminophen 650 MG Q6P PRN 08/15 0500 DCD 08/15 PO 1836 Aspirin Buffered 325 MG DAILY 08/15 899 DCD 08/18 PO 0741 Atorvastatin Calcium 40 MG 1700 08/15 1700 DCD 08/17 PO 1636 Divalproex Sodium 250 MG DAILY 08/15 899 DCD 08/18 PO 0741 Escitalopram Oxalate 20 MG DAILY 08/15 899 DCD 08/18 PO 0741 Furosemide 40 MG 7:30 AM, & 4:30 PM 08/18 1630 CAN IV Furosemide 40 MG 7:30 AM, & 4:30 PM 08/18 1630 DC PO Furosemide 60 MG 7:30 AM, & 4:30 PM 08/18 1630 DCD PO Furosemide 60 MG 7:30 AM, & 4:30 PM 08/15 1630 DC 08/18 IV 0741 Levothyroxine Sodium 0.05 MG DAILY AC 08/17 0700 DCD 08/18 PO 0613 Magnesium Oxide 400 MG ONE ONE 08/18 0015 DC 08/18 PO 08/18 0016 0020 Metoprolol Tartrate 12.5 MG BID 08/15 0900 DCD 08/18 PO 0741 Last 24 Hrs of Lab/Yoan Results Last 24 Hrs of Labs/Mics: Laboratory Tests 08/18/17 0615: Anion Gap 6, Estimated GFR 36 L, BUN/Creatinine Ratio 22.8 Assessment/Plan Assessment: Mr. Townsend is a 81-year-old male with an extensive PMH with a recent recent admission (06/22/17-06/28/17) for acute CHF exacerbation and an ECHO (05/2017) that showed a worsening EF of 25-30% (previous at [facility] 60[facility] and pulmonary hypertension. Problem list Acute hypoxic respiratory failure Acute on chronic CHF EF30-35% Acute kidney injury on CK D stage III Bilateral pleural effusion and moderate amount ascites Thrambocytopenia Macrocytic anemia profound hypothyrodism Plan -Switch Lasix from IV twice daily to p.o. twice daily 60 mg continue, maintain strict ins and outs measurement -No need for echocardiogram, last echocardiogram May 2017 revealed left ventricular ejection fraction of 39% -Cardiology recommendation, thanks for recommendation -TSH is elevated, free T4 and 3 are elevated, EPO negative however antithyroglobulin antibodies positive. Endocrine consultation was obtained and thought process is Ina thyroiditis. Patient was initially started on levothyroxine 25 MCG that was increased to 50 MCG. Patient tolerating medication well. Plans to repeat thyroid function test within 1 week. Thyroid ultrasound as an outpatient. Plan to increase levothyroxine gradually within the next 2-4 weeks. -Peripheral smear setting of microcytic anemia WNL. Mostly hypothyroid induced macrocytic anemia -Vitals every shift -Keep leg elevated -DVT prophylaxis FOR thrombocytopenia -Code full -Diet congestive heart failure Plans for discharge today Problem List: 1. CHF exacerbation Pain Ratin Pain Location: N/A Pain Goal: Pain 4 or less Pain Plan: See mediaction Tomorrow's Labs & Rationales: N/A
== END 2017-08-18 13:15 | disposition home health service (06) | DRG 291 ==
LOC: ERH 15:24 → ERHI 18:57 → 1NO 18:57 → ENRESERV 19:50 → ENTRNSPT 20:23 → 1NO 20:31 → EDTRNSPT 20:39 → EDTRNSPTSTS 20:39 → CMPTRNSPT 20:43 → EDTRNSPT 20:43 → 1NO 08-15 07:46 → ENPENDDIS 08-18 12:46 → ENTRNSPT 08-18 12:51 → EDTRNSPTSTS 08-18 13:14 → EDTRNSPT 08-18 13:14 → 1NO 08-18 13:15 → CMPTRNSPT 08-18 13:44
PROVIDERS: Emergency Medicine; Internal Medicine; Student in an Organized Health Care Education/Training Program
DX: I13.0 Hypertensive heart and chronic kidney disease with heart failure and stage 1 through stage 4 chronic kidney disease, or unspecified chronic kidney disease (principal); I50.23 Acute on chronic systolic (congestive) heart failure; J96.01 Acute respiratory failure with hypoxia; R18.8 Other ascites; N17.9 Acute kidney failure, unspecified; N18.3 Chronic kidney disease, stage 3 (moderate); D69.6 Thrombocytopenia, unspecified; E06.3 Autoimmune thyroiditis; Z95.0 Presence of cardiac pacemaker; Z95.2 Presence of prosthetic heart valve; Z85.038 Personal history of other malignant neoplasm of large intestine; Z85.048 Personal history of other malignant neoplasm of rectum, rectosigmoid junction, and anus; D53.9 Nutritional anemia, unspecified; Z95.5 Presence of coronary angioplasty implant and graft; E78.5 Hyperlipidemia, unspecified
CPT/HCPCS: 1NSP; 36415; 36592; 71045; 74176; 81001; 82436; 86376; 86800; 93005; 93010; 96374; J1644; J1940

== ENCOUNTER 2017-10-05 10:28 | Emergency (ER) | payer OTHER, MEDICARE ==
[~2017-10-05 10:28] MED LIST changes: +DAILY MULTIPLE1 EACH PO; +FUROSEMIDE20 M1 PO; +LEVOTHYROXINE25 MCG PO; +LORATADINE10 M1 PO; +SYNTHROID50 MCG PO
--- NOTE | 2017-10-05 11:02 | ED GI/GU/ABDOMINAL COMPLAINT ---
History of Present Illness General Chief Complaint: Abdominal Pain/Flank Pain Stated Complaint: BIBA ABD PAIN AND DISTENTION Source: patient Exam Limitations: no limitations Vital Signs & Intake/Output Vital Signs & Intake/Output Vital Signs Date Time Temp Pulse Resp B/P B/P Pulse O2 O2 Flow FiO2 Mean Ox Delivery Rate 10/05 1750 81 18 128/80 99 Nasal 2.0L Cannula 10/05 1532 97.9 78 18 115/76 100 Nasal 2.0L Cannula 10/05 1331 98.1 80 20 110/69 95 Room Air 10/05 1225 80 20 100/64 94 10/05 1033 97.9 80 20 152/72 95 Room Air Allergies Coded Allergies: No Known Allergies (06/30/17) Reconcile Medications Aspirin (Ecotrin*) 325 MG TABLET.DR 1 TAB PO DAILY HEART (Reported) Atorvastatin Calcium 40 MG TABLET 1 TAB PO 1700 CHOLESTEROL (Reported) Divalproex Sodium 250 MG TABLET.DR 1 TAB PO DAILY MENTAL HEALTH (Reported) Escitalopram Oxalate (Lexapro) 20 MG TABLET 1 TAB PO DAILY MENTAL HEALTH ( Reported) Furosemide 20 MG TABLET 60 MG PO 7:30 AM, & 4:30 PM heart failure Levothyroxine Sodium 25 MCG TABLET 1 TAB PO DAILY AC THYROID (Reported) Loratadine 10 MG TABLET 1 TAB PO DAILY ALLERGIES (Reported) Metoprolol Tartrate 25 MG TABLET 0.5 TAB PO BID HEART/BP (Reported) Multivitamin (Daily Multiple Vitamin) 1 EACH TABLET 1 TAB PO DAILY VITAMIN SUPPORT (Reported) Promethazine HCl 12.5 MG TABLET 1 TAB PO Q6 PRN NAUSEA/VOMITING Triage Note: C/O LUQ PAIN AT SIGHT OF PACEMAKER. STATES HAS THIS PAIN ON AND OFF SINCE THE SURGERY 2 YEARS AGO. VOMITED X1. EDEMA IN BILATERAL ANKLES NOTED. ABD DISTENTION. Triage Nurses Notes Reviewed? yes HPI: Patient presents for evaluation of a left upper quadrant abdominal pain along with bloating that began since his valve replacement operation roughly 5 years ago. Patient states he has fluid drained from his abdomen on occasion. He also states that he has a pacemaker in the left upper quadrant because it couldn't be placed in the usual position. He denies any associated fever or cold symptoms. He likewise denies bloody emesis or bloody bowel movements. He has felt nauseous and did vomit earlier today. Although patient did have multiple episodes of diarrhea this seems to have stopped over the past 48 hours. Past History Travel History Traveled to [place] past 21 day No Medical History Any Pertinent Medical History? 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 No Review of Systems Review of Systems Constitutional: Reports: no symptoms. EENTM: Reports: no symptoms. Respiratory: Reports: no symptoms. Cardiovascular: Reports: no symptoms. GI: Reports: see HPI. Genitourinary: Reports: no symptoms. Musculoskeletal: Reports: no symptoms. Skin: Reports: no symptoms. Neurological/Psychological: Reports: no symptoms. Hematologic/Endocrine: Reports: no symptoms. Immunologic/Allergic: Reports: no symptoms. All Other Systems: Reviewed and Negative Physical Exam Physical Exam Gastrointestinal: see below Comments: Gen.: Well-nourished, well-developed, no acute respiratory distress. Head: Normocephalic, atraumatic. Eyes: Normal inspection bilaterally Ears: Normal inspection bilaterally Nose: Normal inspection Throat/mouth : Moist mucosa Neck: Supple, full range of motion, no goiter Heart: Regular rate and rhythm, no murmurs rubs or gallops Lungs: Clear to auscultation bilaterally with normal air entry Chest: Nontender Back: Normal range of motion Abdomen: Soft, mild left upper quadrant abdominal tenderness without rebound or guarding (pacemaker palpable), nondistended, normal bowel sounds, no soft tissue swelling erythema or ecchymoses. Extremities: Normal range of motion grossly, equal radial pulses, no cyanosis, bilateral lower extremity pitting edema-2+ Neurologic: Cranial nerves grossly intact, speech is clear and appropriate Skin: warm and dry Psychiatric: Calm, cooperative, no apparent delusions or hallucinations Core Measures ACS in differential dx? No Sepsis Present: No Sepsis Focused Exam Completed? No Progress Differential Diagnosis: BOWEL OBSTRUCTION, RENAL OBSTRUCTION,ASCITES, APPENDICITIS, CHOLECYSTITIS, DIVERTICULITIS, SPONTANEOUS BACTERIAL PERITONITIS Plan of Care: Orders Procedure Date/time Status URINALYSIS 10/05 1101 Complete LIPASE 10/05 1101 Complete COMPREHENSIVE METABOLIC PANEL 10/05 1101 Complete CBC WITHOUT DIFFERENTIAL 10/05 1101 Complete EKG 10/05 1035 Active Laboratory Tests 10/05/17 1605: Urine Color YEL, Urine Clarity CLEAR, Urine pH 6.0, Ur Specific [place] 1.015, Urine Protein 30 H, Urine Ketones NEG, Urine Nitrite NEG, Urine Bilirubin NEG, Urine Urobilinogen 0.2, Ur Leukocyte Esterase NEG, Ur Microscopic SEDIMENT EXAMINED, Urine WBC RARE, Ur Epithelial Cells FEW, Urine Bacteria RARE H, Hyaline Casts RARE H, Granular Casts RARE H, Urine Mucus RARE, Urine Hemoglobin NEG, Urine Glucose NEG 10/05/17 1110: Anion Gap 9, Estimated GFR 34 L, BUN/Creatinine Ratio 22.6, Glucose 144 H, Calcium 8.6, Total Bilirubin 0.7, AST 22, ALT 23, Alkaline Phosphatase 89, Total Protein 8.6 H, Albumin 3.7, Globulin 4.9 H, Albumin/Globulin Ratio 0.8 L, Lipase 46, CBC w Diff NO MAN DIFF REQ, RBC 3.06 L, MCV 99.3 H, MCH 33.2 H, MCHC 33.4, RDW 19.4 H, MPV 10.4, Gran % 59.9, Lymphocytes % 22.3, Monocytes % 15.9 H, Eosinophils % 1.1, Basophils % 0.8, Absolute Granulocytes 3.4, Absolute Lymphocytes 1.3, Absolute Monocytes 0.9 H, Absolute Eosinophils 0.1, Absolute Basophils 0 Diagnostic Imaging: Discussed w/RAD: CT Scan. Radiology Impression: PATIENT: GERMAN BLANCA PRESENT AGE: 82 PATIENT ACCOUNT NO: [id number] : 34 LOCATION: [facility] ORDERING PHYSICIAN: Roger Bae MD SERVICE DATE: 10/05/17 EXAM TYPE: CAT - CT ABD & PELVIS W/O IV CONTRAS EXAMINATION: CT ABDOMEN AND PELVIS WITHOUT CONTRAST CLINICAL INFORMATION: Left upper quadrant abdominal pain. COMPARISON: CT of the abdomen and pelvis done on 08/14/2017. TECHNIQUE: Multidetector volumetric imaging was performed from the superior aspect of the liver through the pubic symphysis. Sagittal and coronal reformatted images were obtained on the technologist's workstation. DLP: 842.47 mGy-cm. FINDINGS: LUNG BASES: Small- to-moderate right and small left-sided pleural effusions are noted with nonspecific bibasilar presumed compressive atelectatic changes, unchanged. LIVER , GALLBLADDER, AND BILIARY TREE: The liver is normal in size, shape, and attenuation. No focal hepatic lesion or biliary ductal dilatation is present. Subcentimeter radiopaque gallstone is noted, consistent with cholelithiasis without any CT features of superimposed acute cholecystitis or biliary obstruction. PANCREAS: Unremarkable. SPLEEN: Unremarkable. Accessory splenic tissue is noted, unchanged. ADRENAL GLANDS: Unremarkable. KIDNEYS AND URETERS: The kidneys are normal in size, shape, and attenuation. No hydronephrosis, hydroureter, or calculi seen. No perinephric stranding. Exophytic cortical renal cyst is noted at mid to superior lateral cortex of the right kidney, unchanged, measures approximately 3.5 cm. BLADDER: Suboptimally distended, grossly appears unremarkable. GASTROINTESTINAL TRACT: Postsurgical changes are noted within the sigmoid colon. The large bowel as well as the small bowel loops are decompressed. The appendix is not visualized. ABDOMINAL WALL: There is a fat- containing right-sided ventral hernia present, unchanged. Generalized fluid retention is noted throughout the abdominal wall, unchanged. LYMPH NODES: Normal. VASCULAR: Diffuse atherosclerotic disease is noted within the aorta and is branches without aneurysm formation, unchanged. PELVIC VISCERA: There is no pelvic mass present. Moderate amount of free fluid is noted; the amount of fluid has increased since 08/14/2017. There is no free air present. OSSEOUS STRUCTURES : Grade 1 anterolisthesis of L4 over L5 and grade 1 retrolisthesis of L5 over S1 , unchanged. Mild diffuse osteopenia is seen. IMPRESSION: 1. Compared to most recent prior CT of the abdomen and pelvis dated 08/14/2017, the amount of ascites has mildly increased. 2. No other significant change. DICTATED BY: Mis Masters MD DATE/TIME DICTATED:10/05/171242 WORK FORCE ADVISOR:HOLLIE DATE/ TIME TRANSCRIBED:10/05/171242 CONFIDENTIAL, DO NOT COPY WITHOUT APPROPRIATE AUTHORIZATION. <Electronically signed in Other Vendor System> SIGNED BY: Mis Masters MD 10/05/17 1441 Initial ED EKG: vENTRICULAR PACED RHYTHM WITH A RATE OF 80 Prior EKG: unchanged Comments: 10/05/2017 6:26:15 PM I previously updated German on his test results. He then provided a urinalysis and this is unremarkable. I feel he is now stable for discharge. Departure Departure Disposition: HOME OR SELF CARE Condition: Stable Clinical Impression Primary Impression: Ascites Qualifiers: Ascites type: other type Qualified Code: R18.8 - Other ascites Referrals: Jenny Wilson MD (PCP/Family) Additional Instructions: Follow up with your primary care physician and a GI specialist for reevaluation of your intra-abdominal fluid this week. Phenergan as needed for nausea or vomiting. Return if any concerns or sudden worsening. Please note that there might be incidental findings in your evaluation that are unrelated to the current emergency department visit. Please notify your primary care doctor about this emergency department visit in order to obtain and review all of the testing performed so that these incidental findings can be monitored as needed. If you had an x-ray performed, please understand that some fractures or other findings may not be seen on the initial set of x-rays. If your symptoms persist you might need a repeat set of x-rays to check for such a fracture. If you had a laceration evaluated, please understand that foreign bodies such as glass or wood may not be visible to the naked eye or on plain x-rays. If the wound becomes red, swollen, increasingly more painful or if there is any drainage from the wound, please have it reevaluated by a physician for the possibility of a retained foreign body. If you're unable to follow up as outlined in the discharge instructions please return to the emergency department. Thank you for choosing the [facility] Emergency Department for your care. It was a pleasure to serve you today. Roger Bae M.D. [facility] Departure Forms: Customer Survey General Discharge Information Prescriptions: Current Visit Scripts Promethazine HCl 1 TAB PO Q6 PRN NAUSEA/VOMITING #12 TAB
[2017-10-05 11:21] LABS: ABSOLUTE BASOPHIL COUNT 0 /CUMM (0.0-0.2); ABSOLUTE EOSINOPHIL COUNT 0.1 /CUMM (0.0-0.7); ABSOLUTE GRANULOCYTE CT 3.4 /CUMM (1.4-6.5); ABSOLUTE LYMPH COUNT 1.3 /CUMM (1.2-3.4); ABSOLUTE MONOCYTE COUNT 0.9 /CUMM (0.10-0.60); BASOPHIL % 0.8 % (0.0-2.0); EOSINOPHIL % 1.1 % (0-5); GRANULOCYTE % 59.9 % (42.2-75.2); HEMATOCRIT 30.4 % (42-52); MEAN CORPUSCULAR HGB 33.2 PG (27.0-31.0); MEAN CORPUSCULAR HGB CONC 33.4 G/DL (33.0-37.0); MEAN CORPUSCULAR VOLUME 99.3 FL (80.0-94.0); MEAN PLATELET VOLUME 10.4 FL (7.4-10.4); RBC DISTRIBUTION WIDTH 19.4 % (11.5-14.5); RED BLOOD CELL CT 3.06 /CUMM (4.70-6.10); WHITE BLOOD CELL COUNT 5.7 /CUMM (4.8-10.8)
[2017-10-05 11:55] LABS: PLATELET COUNT 91 /CUMM (130-400)
--- NOTE | 2017-10-05 14:41 | CT SCAN REPORT ---
EXAMINATION: CT ABDOMEN AND PELVIS WITHOUT CONTRAST CLINICAL INFORMATION: Left upper quadrant abdominal pain. COMPARISON: CT of the abdomen and pelvis done on 08/14/2017. TECHNIQUE: Multidetector volumetric imaging was performed from the superior aspect of the liver through the pubic symphysis. Sagittal and coronal reformatted images were obtained on the technologist's workstation. DLP: 842.47 mGy-cm. FINDINGS: LUNG BASES: [id number] right and small left-sided pleural effusions are noted with nonspecific bibasilar presumed compressive atelectatic changes, unchanged. LIVER, GALLBLADDER, AND BILIARY TREE: The liver is normal in size, shape, and attenuation. No focal hepatic lesion or biliary ductal dilatation is present. Subcentimeter radiopaque gallstone is noted, consistent with cholelithiasis without any CT features of superimposed acute cholecystitis or biliary obstruction. PANCREAS: Unremarkable. SPLEEN: Unremarkable. Accessory splenic tissue is noted, unchanged. ADRENAL GLANDS: Unremarkable. KIDNEYS AND URETERS: The kidneys are normal in size, shape, and attenuation. No hydronephrosis, hydroureter, or calculi seen. No perinephric stranding. Exophytic cortical renal cyst is noted at mid to superior lateral cortex of the right kidney, unchanged, measures approximately 3.5 cm. BLADDER: Suboptimally distended, grossly appears unremarkable. GASTROINTESTINAL TRACT: Postsurgical changes are noted within the sigmoid colon. The large bowel as well as the small bowel loops are decompressed. The appendix is not visualized. ABDOMINAL WALL: There is a fat-containing right-sided ventral hernia present, unchanged. Generalized fluid retention is noted throughout the abdominal wall, unchanged. LYMPH NODES: Normal. VASCULAR: Diffuse atherosclerotic disease is noted within the aorta and is branches without aneurysm formation, unchanged. PELVIC VISCERA: There is no pelvic mass present. Moderate amount of free fluid is noted; the amount of fluid has increased since 08/14/2017. There is no free air present. OSSEOUS STRUCTURES: Grade 1 anterolisthesis of L4 over L5 and grade 1 retrolisthesis of L5 over S1, unchanged. Mild diffuse osteopenia is seen. IMPRESSION: 1. Compared to most recent prior CT of the abdomen and pelvis dated 08/14/2017, the amount of ascites has mildly increased. 2. No other significant change.
[2017-10-05 17:50] VITALS: BP 128/80
[2017-10-05] MEDS ORDERED: PROMETHAZINE12.5 M2 PO (18:34)
== END 2017-10-05 19:18 ==
LOC: ERH 10:28
PROVIDERS: Emergency Medicine
DX: R18.8 Other ascites (principal)
CPT/HCPCS: 74176; 81001; 93005; 93010; 96374; 96375; J2550